=== PATIENT | female | born 1970 | race Two or more races ===

== ENCOUNTER 2020-05-29 10:04 | Outpatient (REF) | payer MEDICAID, SELFPAY ==
[2020-05-29 11:27] LABS: Free T4 (Free Thyroxine) 1.22 ng/dL (0.71-1.85); Thyroid Stimulating Hormone 1.35 mIU/mL (0.32-4.0)
[2020-06-03 06:42] LABS: Thyroglobulin Antibody <1 IU/mL (<=1); Thyroglobulin Level <0.1 ng/mL
== END 2020-05-29 10:05 | disposition home or self-care (01) ==
LOC: HO.LAB 10:04
PROVIDERS: PCP Internal Medicine Geriatric Medicine; Visit Provider Internal Medicine Endocrinology, Diabetes & Metabolism
DX: C73 Malignant neoplasm of thyroid gland (principal)
CPT/HCPCS: 36415; 84432; 84439; 84443; 86800

== ENCOUNTER → 2020-06-03 08:50 | Outpatient (BNVA) | payer MEDICAID, SELFPAY | PROVIDERS: PCP Internal Medicine Geriatric Medicine; Referring Provider Internal Medicine Geriatric Medicine; Visit Provider Internal Medicine Endocrinology, Diabetes & Metabolism | DX: C73 Malignant neoplasm of thyroid gland (principal); E89.0 Postprocedural hypothyroidism; Z79.899 Other long term (current) drug therapy | CPT/HCPCS: 99212 ==

== ENCOUNTER 2020-06-05 08:17 | Outpatient (REF) | payer MEDICAID, SELFPAY | END 2020-06-05 08:18 | disposition home or self-care (01) | LOC: HO.LAB 08:17 | PROVIDERS: Visit Provider Internal Medicine | DX: Z20.828 Contact with and (suspected) exposure to other viral communicable diseases (principal) | CPT/HCPCS: C9803; U0003 ==

== ENCOUNTER 2020-07-09 09:49 | Outpatient (REF) | payer MEDICAID, SELFPAY | END 2020-07-09 09:50 | disposition home or self-care (01) | LOC: HO.LAB 09:49 | PROVIDERS: Visit Provider Internal Medicine | DX: Z20.828 Contact with and (suspected) exposure to other viral communicable diseases (principal) | CPT/HCPCS: C9803; U0003 ==

== ENCOUNTER 2020-11-28 11:11 | Outpatient (REF) | payer MEDICAID, SELFPAY ==
[2020-11-28 13:23] LABS: Free T4 (Free Thyroxine) 1.02 ng/dL (0.71-1.85); Thyroid Stimulating Hormone 0.43 uIU/mL (0.32-4.0)
[2020-12-01 03:57] LABS: Thyroglobulin Antibody <1 IU/mL (<=1); Thyroglobulin Level <0.1 ng/mL
== END 2020-11-28 11:12 | disposition home or self-care (01) ==
LOC: HO.10HDL 11:11
PROVIDERS: Visit Provider Internal Medicine Endocrinology, Diabetes & Metabolism
DX: C73 Malignant neoplasm of thyroid gland (principal)
CPT/HCPCS: 36415; 84432; 84439; 84443; 86800

== ENCOUNTER → 2020-12-02 12:03 | Outpatient (BNVA) | payer MEDICAID, SELFPAY | PROVIDERS: PCP Internal Medicine Geriatric Medicine; Visit Provider Internal Medicine Endocrinology, Diabetes & Metabolism | DX: C73 Malignant neoplasm of thyroid gland (principal); E89.0 Postprocedural hypothyroidism; Z79.899 Other long term (current) drug therapy | CPT/HCPCS: 99212 ==

== ENCOUNTER 2021-01-27 12:10 | Outpatient (REF) | payer MEDICAID, SELFPAY ==
--- NOTE | ~2021-01-27 | XR_ITS ---
EXAMINATION: XR RIBS, RIGHT CLINICAL INFORMATION: Chest pain COMPARISON: None TECHNIQUE: 4 views of the right ribs were obtained. FINDINGS: No focal consolidation. No pneumothorax. Trachea is midline. Cardiomediastinal silhouette is not enlarged. No large pleural effusions. Surgical clips are in the right upper quadrant of the abdomen. Osseous structures are intact. No acute visualized right-sided rib fractures. XR/XR ribs RT min 3V w CXR1V IMPRESSION: 1. No acute cardiopulmonary process. 2. No acute visualized right-sided rib fractures.
== END 2021-01-27 12:11 | disposition home or self-care (01) ==
LOC: HO.XRAY 12:10
PROVIDERS: PCP Internal Medicine Geriatric Medicine; Visit Provider Internal Medicine Geriatric Medicine
DX: R07.89 Other chest pain (principal)
CPT/HCPCS: 71101

== ENCOUNTER 2021-02-14 12:26 | Outpatient (REF) | payer MEDICAID, SELFPAY ==
--- NOTE | ~2021-02-14 | XR_ITS ---
EXAMINATION: LEFT FIRST X-RAY CLINICAL INFORMATION: Left wrist fusion. Pain. COMPARISON: None TECHNIQUE: 4 views of the left wrist FINDINGS: There is a soft tissue ossification seen on the lateral view adjacent to the dorsal wrist questionable for a triquetral fracture. No other fracture is seen. Joint spaces are normal. There is dorsal soft tissue swelling. XR/XR hand wrist LT IMPRESSION: Question triquetral fracture seen on the lateral view. Clinical correlation recommended.
== END 2021-02-14 12:27 | disposition home or self-care (01) ==
LOC: HO.XRAY 12:26
PROVIDERS: PCP Internal Medicine Geriatric Medicine; Referring Provider Internal Medicine Geriatric Medicine; Visit Provider Nurse Practitioner Family
DX: M25.432 Effusion, left wrist (principal); M25.532 Pain in left wrist
CPT/HCPCS: 73110; 73130

== ENCOUNTER 2021-02-14 15:37 | Emergency (ER) | payer MEDICAID, SELFPAY ==
[2021-02-14 15:41] VITALS: BP 149/74; PULSE 75; RESP 20; TEMP 37.3; O2SAT 99; BMI 33.3
--- NOTE | 2021-02-14 16:36 | ED_ITS ---
HPI - Extremity Problem General Chief complaint: Extremity Injury, Upper Stated complaint: left arm pain Time Seen by Provider: 02/14/21 16:05 Source: patient Mode of arrival: ambulatory Limitations: no limitations History of Present Illness HPI Narrative: Patient is a 50-year-old female with no significant past medical history who presents 1 day after injuring her wrist in the pole. Patient states she injured her left wrist while she was playing tag with her nephews in the pool. She believes she bent it forward and against an object but she is not quite sure exactly the mechanism of action. She now has pain to the dorsal aspect of her distal ulna. She states she can feel all of her fingers and move her fingers fine but has difficulty moving her wrist. Related Data Home Medications Medication Instructions Recorded Confirmed cyclobenzaprine 10 mg tablet 10 mg PO BEDTIME 12/02/20 Previous Rx's Medication Instructions Recorded Levoxyl 100 mcg tablet 100 mcg PO DAILY 30 Days #30 tab NS 12/02/20 Allergies Allergy/AdvReac Type Severity Reaction Status Date / Time No Known Allergies Allergy Verified 02/14/21 15:41 [No Known Allergies*] Review of Systems Review of Systems: Yes all other systems are reviewed and are negative [facility] Past Medical History Medical History Post-surgical hypothyroidism Primary thyroid cancer Surgical History Hx of cholecystectomy Hx of hysterectomy Hx of total thyroidectomy Family History Family History Father Alcoholic Mother Hypertension CVD (cardiovascular disease) Diabetes Social History Social History Advance Directives: No Advance Directives Information Provided: Yes Patient : No Physical Exam Vital Signs: Vital Signs: Last Vital Signs Temp 99.1 F 02/14/21 15:41 Pulse 75 02/14/21 15:41 Resp 20 02/14/21 15:41 BP 149/74 H 02/14/21 15:41 Pulse Ox 99 02/14/21 15:41 Body Mass Index 33.3 Const: General: cooperative, healthy appearing, comfortable, no acute distress and well developed Orientation/consciousness: patient oriented x3 Limitations: no limitations Neuro: General: patient oriented x3 Extrem: Left upper extremity: wrist (NVI intact fingers, full ROM fingers, 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 Patient already has an appointment at [facility] in 3 days. Procedures Orthopedic Splinting/Casting Injury #1: Side: left Upper Extremity Injury Location: wrist Upper Extremity Immobilizer: volar splint MDM - Extremity (Nontraumatic) Imaging Data left wrist x-ray: Attestation: I personally reviewed and interpreted this imaging study as follows: Radiologist's impression: [address] [address] ReportSigned Patient: Josué Holloway#: [id number]: 1970Acct:[id number]/Sex: 50 / FADM Date: 02/14/21Loc: HO.XRAYAttending Dr: Efren Hawkins NP Ordering Physician: Efren Hawkins NP Date of Service: 02/14/21 Procedure(s): XR hand wrist LT Accession Number(s): [id number] cc: Efren Hawkins NP~ EXAMINATION: LEFT FIRST X-RAY CLINICAL INFORMATION: Left wrist fusion. Pain. COMPARISON: None TECHNIQUE: 4 views of the left wrist FINDINGS: There is a soft tissue ossification seen on the lateral view adjacent to the dorsal wrist questionable for a triquetral fracture. No other fracture is seen. Joint spaces are normal. There is dorsal soft tissue swelling. XR/XR hand wrist LT IMPRESSION: Question triquetral fracture seen on the lateral view. Clinical correlation recommended. Dictated By:SAMANTHA DRAPER MDSigned By:<Electronically signed by SAMANTHA DRAPER MD in OV>02/14/21 1327 DD/ 1232TD/TT: Manager Multicultural: RIKKI Discharge Plan Discharge Prescriptions: No Action levothyroxine [Levoxyl] 100 mcg tablet 100 mcg PO DAILY 30 Days Qty: 30 RF: 11
== END 2021-02-14 16:51 | disposition home or self-care (01) ==
PROVIDERS: Emergency Provider Emergency Medicine; PCP Internal Medicine Geriatric Medicine
DX: S62.112A Displaced fracture of triquetrum [cuneiform] bone, left wrist, initial encounter for closed fracture (principal); X58.XXXA Exposure to other specified factors, initial encounter; Y93.89 Activity, other specified; Y92.34 Swimming pool (public) as the place of occurrence of the external cause; Y99.9 Unspecified external cause status
CPT/HCPCS: 29125; 99283

== ENCOUNTER 2021-05-23 11:20 | Outpatient (REF) | payer MEDICAID, SELFPAY ==
--- NOTE | ~2021-05-23 | US_ITS ---
EXAMINATION: US VENOUS ULTRASOUND WITH DOPPLER LOWER EXTREMITY, LEFT CLINICAL INFORMATION: Left leg pain. Patient states left lateral pink lump present. COMPARISON: October 04, 2017 TECHNIQUE: Ultrasound of the deep veins is performed from the hip to the calf with compression sonography and color and pulse Doppler assessment. Spectral analysis with color-flow imaging is performed. FINDINGS: There is normal venous compression and respiratory variation and augmented flow. The visualized common femoral vein, superficial femoral vein, profunda femoral vein, popliteal vein, and the trifurcation region shows no evidence of deep venous thrombosis. There is no significant popliteal fossa cyst. No popliteal artery aneurysm. Ultrasound scanning over the questioned lump did not demonstrate any abnormal cystic or solid lesion. No region of abnormal distal sound shadowing appreciated. No edematous change within the soft tissues is seen. US/US venous duplex LE IMPRESSION: No acute DVT demonstrated in the left lower extremity.
--- NOTE | ~2021-05-23 | XR_ITS ---
EXAMINATION: XR TIBIA AND FIBULA, LEFT CLINICAL INFORMATION: Pain COMPARISON: None TECHNIQUE: AP and lateral views of the left tibia and fibula were obtained. FINDINGS: The bones and soft tissues are normal. No fracture. No osseous lesions. XR/XR tibia fibula LT 2V IMPRESSION: Normal left tibia and fibula.
== END 2021-05-23 11:21 | disposition home or self-care (01) ==
LOC: HO.US 11:20
PROVIDERS: PCP Internal Medicine Geriatric Medicine; Visit Provider Emergency Medicine
DX: M79.605 Pain in left leg (principal)
CPT/HCPCS: 73590; 93971

== ENCOUNTER → 2021-10-03 13:50 | Outpatient (BNVA) | payer MEDICAID, SELFPAY | PROVIDERS: PCP Internal Medicine Geriatric Medicine; Visit Provider Internal Medicine Endocrinology, Diabetes & Metabolism | DX: C73 Malignant neoplasm of thyroid gland (principal) | CPT/HCPCS: 99212 ==

== ENCOUNTER 2021-11-12 11:48 | Outpatient (REF) | payer MEDICAID, SELFPAY ==
[2021-11-12 13:41] LABS: Free T4 (Free Thyroxine) 1.22 ng/dL (0.71-1.85); Thyroid Stimulating Hormone 0.48 uIU/mL (0.32-4.0)
[2021-11-20 04:47] LABS: Thyroglobulin Antibody <1 IU/mL (<=1); Thyroglobulin Level <0.1 ng/mL
== END 2021-11-12 11:49 | disposition home or self-care (01) ==
LOC: HO.10HDL 11:48
PROVIDERS: Internal Medicine Endocrinology, Diabetes & Metabolism; Visit Provider Internal Medicine Endocrinology, Diabetes & Metabolism
DX: C73 Malignant neoplasm of thyroid gland (principal); E89.0 Postprocedural hypothyroidism
CPT/HCPCS: 36415; 84432; 84439; 84443; 86800

== ENCOUNTER 2021-11-19 13:45 | Outpatient (REF) | payer MEDICAID, SELFPAY ==
--- NOTE | ~2021-11-19 | MM_ITS ---
EXAMINATION: MM SCREENING DIGITAL BREAST TOMOSYNTHESIS, BILATERAL CLINICAL INFORMATION: Screening. Asymptomatic. The lifetime risk of breast cancer based on the Tyrer-Cuzick Model is 7%. COMPARISON: Mammography: 09/26/2018, 11/11/2016, 09/27/2015 TECHNIQUE: Digital breast tomosynthesis is performed in both the craniocaudal and mediolateral oblique views along with computer-aided detection (CAD). Synthesized 2D images are generated from the tomosynthesis. FINDINGS: There are scattered areas of fibroglandular density (ACR BI-RADS breast composition Category b). There are no significant masses, abnormal calcifications, or other abnormalities. Parenchymal pattern is similar to prior studies. There is no developing density or architectural abnormality. The axilla and skin contours are unremarkable. No significant changes. MM/MM tomosynthesis screening BI IMPRESSION: No mammographic evidence of malignancy. ASSESSMENT: BI-RADS 1: Negative RECOMMENDATION: Routine annual mammography screening. This patient's information was entered into a reminder system with a target due date for their next mammogram.
== END 2021-11-19 13:46 | disposition home or self-care (01) ==
LOC: HO.MAMMO 13:45
PROVIDERS: Visit Provider Internal Medicine Geriatric Medicine
DX: Z12.31 Encounter for screening mammogram for malignant neoplasm of breast (principal)
CPT/HCPCS: 77063; 77067

== ENCOUNTER 2022-01-29 11:05 | Outpatient (REF) | payer MEDICAID, SELFPAY ==
--- NOTE | ~2022-01-29 | XR_ITS ---
EXAMINATION: XR THORACIC SPINE CLINICAL INFORMATION: Pain COMPARISON: None TECHNIQUE: 3 views of the thoracic spine were obtained. FINDINGS: There is no fracture or bone destruction seen and the vertebral alignment is normal. There is no disc space narrowing. There is no abnormality of the paraspinal soft tissues. XR/XR thoracic spine 3V IMPRESSION: Unremarkable thoracic examination.
== END 2022-01-29 11:06 | disposition home or self-care (01) ==
LOC: HO.XRAY 11:05
PROVIDERS: Absent Provider Internal Medicine Geriatric Medicine; PCP Internal Medicine Geriatric Medicine; Visit Provider Registered Nurse
DX: M54.6 Pain in thoracic spine (principal)
CPT/HCPCS: 72072

== ENCOUNTER 2022-03-25 07:57 | Outpatient (REF) | payer MEDICAID, SELFPAY ==
--- NOTE | ~2022-03-25 | US_ITS ---
EXAMINATION: US ABDOMEN COMPLETE CLINICAL INFORMATION: Right upper quadrant pain. Elevated LFTs. COMPARISON: Ultrasound abdomen complete 09/15/2018 and 08/30/2015. TECHNIQUE: Real-time imaging of the abdominal viscera. Technically limited study secondary to body habitus. FINDINGS: PANCREAS: Normal. ABDOMINAL AORTA: The proximal, mid, and distal segments are normal in caliber. INFERIOR VENA CAVA: Visualized portions are normal. LIVER: The liver is normal in size. The liver contour is normal. Liver echotexture is slightly increased. There is a cyst in the right lobe measuring 3.4 x 2.4 x 2.7 cm with septation. This measured 3.2 x 2.1 x 1.9 cm 2018 and 3.1 x 1.9 x 2.2 cm 2015. No other focal liver lesion. There is no intrahepatic biliary duct dilatation seen. GALLBLADDER: Surgically absent. COMMON BILE DUCT: Normal in caliber measuring 0.6 cm in diameter. RIGHT KIDNEY: Normal. No hydronephrosis. No renal calculi or focal parenchymal lesions. The kidney measures 10.4 cm in maximum dimension. LEFT KIDNEY: Normal. No hydronephrosis. No renal calculi or focal parenchymal lesions. The kidney measures 11.6 cm in maximum dimension. SPLEEN: Normal. The spleen measures 10.4 cm in maximum dimension. FREE FLUID: None. US/US abdomen complete IMPRESSION: Slightly echogenic liver probably representing fatty infiltration. No appreciable change in liver cyst..
== END 2022-03-25 07:58 | disposition home or self-care (01) ==
LOC: HO.US 07:57
PROVIDERS: Visit Provider Registered Nurse
DX: R10.11 Right upper quadrant pain (principal)
CPT/HCPCS: 76700

== ENCOUNTER 2022-10-01 09:50 | Outpatient (REF) | payer MEDICAID, SELFPAY ==
[2022-10-01 11:38] LABS: Free T4 (Free Thyroxine) 0.99 ng/dL (0.71-1.85); Thyroid Stimulating Hormone 1.75 uIU/mL (0.32-4.0)
[2022-10-02 18:09] LABS: Thyroglobulin <0.1 ng/mL
== END 2022-10-01 09:51 | disposition home or self-care (01) ==
LOC: HO.10HDL 09:50
PROVIDERS: Visit Provider Internal Medicine Endocrinology, Diabetes & Metabolism
DX: C73 Malignant neoplasm of thyroid gland (principal)
CPT/HCPCS: 36415; 84432; 84439; 84443

== ENCOUNTER → 2022-10-06 07:38 | Outpatient (BNVA) | payer MEDICAID, SELFPAY | PROVIDERS: PCP Internal Medicine Geriatric Medicine; Visit Provider Internal Medicine Endocrinology, Diabetes & Metabolism | DX: C73 Malignant neoplasm of thyroid gland (principal); E89.0 Postprocedural hypothyroidism; Z79.899 Other long term (current) drug therapy | CPT/HCPCS: 99212 ==

== ENCOUNTER 2022-10-21 14:57 | Outpatient (REF) | payer MEDICAID, SELFPAY ==
--- NOTE | ~2022-10-21 | US_ITS ---
EXAMINATION: US SOFT TISSUE HEAD/NECK CLINICAL INFORMATION: Nontoxic multinodular goiter. History of thyroid cancer. Rule out recurrence or persistence. COMPARISON: Ultrasound soft tissue neck 12/19/2019. TECHNIQUE: Linear transducer grayscale and color Doppler examination of the thyroid bed and surrounding soft tissue. FINDINGS: Imaging through the thyroid bed reveals no recurrent mass or nodule. There are scattered neck lymph nodes: Right Neck: - Level 5A lymph node measures 1.0 x 0 0.5 to 0.5 cm. It has normal architecture. Previously it measured 1.2 x 0.6 x 1.1). - Level 2 lymph node measures 1.4 x 0.4 x 0.5 cm. There is normal architecture. It is new. - Level 4 lymph node measures 1.7 x 1.6 x 1.8 cm and has normal architecture. It is new. - Level 5A lymph node measures 1.1 x 0.6 0.7 cm. It has normal echotexture. It is new. - Level 5B lymph node measures 1.3 x 0.4 x 0.7 cm. It has normal architecture. It is new. Left Neck: - Level 2 lymph node previously measured 1.0 x 0.4 x 0.8 cm. It is not seen at this time. - Level 5A lymph node previously it measured 1.1 x 0.6 x 1.0 cm. It is not seen currently. US/US soft tiss head and/or neck IMPRESSION: Normal-appearing bilateral neck lymph nodes. A few new lymph nodes seen in the right neck, benign. No abnormal mass or residual thyroid tissue seen in the thyroid bed.
== END 2022-10-21 14:58 | disposition home or self-care (01) ==
LOC: HO.US 14:57
PROVIDERS: Visit Provider Internal Medicine Endocrinology, Diabetes & Metabolism
DX: E04.2 Nontoxic multinodular goiter (principal); C73 Malignant neoplasm of thyroid gland
CPT/HCPCS: 76536

== ENCOUNTER 2023-03-04 07:51 | Outpatient (REF) | payer MEDICAID, SELFPAY ==
--- NOTE | ~2023-03-04 | US_ITS ---
EXAMINATION: US ABDOMEN COMPLETE CLINICAL INFORMATION: Fatty liver. COMPARISON: Ultrasound abdomen complete 03/25/2022 and 09/15/2018. TECHNIQUE: Real-time imaging of the abdominal viscera. FINDINGS: Limited by patient body habitus. PANCREAS: Head and body appear unremarkable. Tail not visualized. ABDOMINAL AORTA: The proximal, mid, and distal segments are normal in caliber. INFERIOR VENA CAVA: Visualized portions are normal. LIVER: No images containing both the liver and right kidney are submitted. Liver echogenicity is suboptimally assessed on the current study. No obvious fatty infiltration. The liver is normal in size. The liver contour appears unremarkable. Approximately 3 cm or less benign left hepatic cysts. No intrahepatic biliary ductal dilation identified. GALLBLADDER: Surgically absent. Technologist reports negative sonographic Hughes's sign. COMMON BILE DUCT: Measures 1.0 cm in diameter. RIGHT KIDNEY: No hydronephrosis. No renal calculi or focal parenchymal lesions. The kidney measures 10.1 cm in maximum dimension. LEFT KIDNEY: No hydronephrosis. No renal calculi or focal parenchymal lesions. The kidney measures 10.8 cm in maximum dimension. SPLEEN: The spleen measures 10.6 cm in maximum dimension. FREE FLUID: None. US/US abdomen complete IMPRESSION: Limited study. No obvious fatty infiltration of the liver. Gallbladder not visualized, consistent with reported history of prior surgical removal. Common bile duct upper normal in diameter to mildly dilated for patient of this age who is status post cholecystectomy. No intrahepatic biliary ductal dilation identified.
[2023-03-04 09:53] LABS: Alanine Aminotransferase 47 U/L (0-31); Albumin Level 3.6 g/dL (3.5-5.0); Alkaline Phosphatase 106 U/L (39-117); Anion Gap 15 (12-20); Aspartate Amino Transferase 50 U/L (5-31); Bilirubin Total 0.5 mg/dL (0.0-1.0); Blood Urea Nitrogen 10 mg/dL (9-16); Calcium 9.4 mg/dL (8.4-10.2); Carbon Dioxide 24 mmol/L (22-29); Chloride 109 mmol/L (96-108); Estimated Glomerular Filt Rate > 60; Glucose Random 92 mg/dL (60-115); Sodium 144 mmol/L (135-145); Total Protein 6.9 g/dL (6.5-8.0)
== END 2023-03-04 07:52 | disposition home or self-care (01) ==
LOC: HO.US 07:51
PROVIDERS: PCP Internal Medicine Geriatric Medicine; Visit Provider Internal Medicine Geriatric Medicine
DX: K76.0 Fatty (change of) liver, not elsewhere classified (principal)
CPT/HCPCS: 36415; 76700; 80053

== ENCOUNTER 2023-09-29 09:33 | Outpatient (REF) | payer MEDICAID, SELFPAY ==
[2023-09-29 11:34] LABS: Free T4 (Free Thyroxine) 1.03 ng/dL (0.71-1.85); Thyroid Stimulating Hormone 3.08 uIU/mL (0.32-4.0)
[2023-10-02 02:28] LABS: Thyroglobulin Antibody <1 IU/mL (<=1)
[2023-10-02 05:58] LABS: Thyroglobulin Level <0.1 ng/mL
== END 2023-09-29 09:34 | disposition home or self-care (01) ==
LOC: HO.10HDL 09:33
PROVIDERS: Visit Provider Internal Medicine Endocrinology, Diabetes & Metabolism
DX: C73 Malignant neoplasm of thyroid gland (principal)
CPT/HCPCS: 36415; 84432; 84439; 84443; 86800

== ENCOUNTER 2023-10-05 12:46 | Outpatient (AMB) | payer MEDICAID, SELFPAY ==
--- NOTE | 2023-10-05 12:52 | MHC.OFFVIS ---
Intake Vital Signs 10/05/23 12:53 Height 5 ft 7.91 in Weight 224 lb 13.944 oz BMI 34.3 BP 110/60 Blood Pressure Location Lt brachial Position Sitting Pulse 71 Pulse Source Pulse Oximeter Intake Visit Reasons: Thyroid Cancer-confirmed Intake Note: Patient presents today for Thyroid Cancer follow up. Clinical Systems Educator Required: No Accompanied by: Self / Same As Patient Allergies No Known Allergies [No Known Allergies*] Allergy (Verified 10/05/23 12:59) Medication List - Last Reconciled 10/05/23 by Arpit Modi MD cyclobenzaprine 10 mg PO BEDTIME Levoxyl (levothyroxine) 100 mcg PO DAILY NS HPI HPI Comments History of Present Illness Details 53 year-old female she 1 for PTC and postsurgical hypothyroidism by Dr. Conroy . She is feeling well , does complain weight gain. She is currently on Levoxyl to 100 mcg . She states she is 100 % compliant , she has a good method of administration. Diagnosed with Thyroid cancer stage 1 , (T 1b, N 0, M 0) size 1.5 x 1.3 x 0.8 cm clear margins, no lymphovascular invasion, no extrathyroidal extension. She was treated with surgery (04/25/14) by , BARNHART (104.8 mCi) 07/16/14, post ablation scan 07/24/14 uptake only in neck and submandibular glands. 03/27/16 [facility] at [facility] residual iodine uptake in neck . there was not stimulated TG measured with this scan. Denies palpitations, tremors, denies diarrhea, denies nervousness, denies insomnia, gaining weight, no heat intolerance, sweating, denies anxiety, irritable. She has PMH of paroxysmal supraventricular arrhythmia. US thyroid 12/19/2019 RIGHT NECK SOFT TISSUES: Right neck soft tissues and nodes are as follows: There are scattered small normal nodes demonstrated with normal rosalva architecture and color flow. No lymphadenopathy. Level 1B: 0.3 x 0.5 cm. Normal rosalva architecture. Level 2A: 0.4 x 0.6 cm. Normal rosalva architecture. Level 5A: 0.6 x 1.2 cm. Normal rosalva architecture. Level 6: 0.4 x 0.5 cm. Normal rosalva architecture. LEFT NECK SOFT TISSUES: Left neck soft tissues and nodes are as follows: There are scattered small normal nodes demonstrated with normal rosalva architecture and color flow. No lymphadenopathy. Level 1B: 0.3 x 0.5 cm. Normal rosalva architecture. Level 2A: 0.4 x 1.1 cm. Normal rosalva architecture. Level 5A: 0.6 x 1.1 cm. Normal rosalva architecture Laboratory Tests 11/28/20 11/28/20 11:17 11:17 TSH 0.43 Free T4 1.02 Thyroglobulin <0.1 Thyroglobulin Anti body <1 Laboratory Tests 11/30/19 11/30/19 05/29/20 10:37 10:37 10:25 TSH 1.35 Free T4 1.22 Thyroglobulin Thyroglobulin LC-M S/MS Thyroglobulin Comm ent Has been added TSH 3rd Generation 0.52 Thyroglobulin Anti body 05/29/20 10:25 TSH Free T4 Thyroglobulin <0.1 Thyroglobulin LC-M S/MS TNP Thyroglobulin Comm ent TSH 3rd Generation Thyroglobulin Anti body <1 PFSH Medical History Post-surgical hypothyroidism Primary thyroid cancer Surgical History Hx of cholecystectomy Hx of hysterectomy Hx of total thyroidectomy Family History Father Alcoholic Mother Hypertension CVD (cardiovascular disease) Diabetes Social History Alcohol intake: current Alcohol intake frequency: does not drink Patient Tobacco Use Status: Never used Tobacco Physical Exam Const Other: Healed scar status post thyroidectomy . There is no cervical adenopathy palpated in the neck Assessment & Plan Assessment & Plan (1) Primary thyroid cancer: Code(s): C73 - Malignant neoplasm of thyroid gland Plan This is a 53-year-old female with a history of papillary thyroid cancer status post total thyroidectomy with radioactive iodine therapy in 2013 108 mCi. Recent thyroglobulin and thyroid ultrasounds show the absence of recurrent or persistent thyroid cancer. She has be replaced on Levoxyl 100 mcg. She appears to be clinically and biochemically euthyroid. Neck ultrasound showed no signs of persistence or recurrence of thyroid cancer Plan is to continue the current regimen. At this point, patient seems cure of the thyroid cancer and does not need any follow-up neck ultrasound or thyroglobulin levels. Will have patient returned to the care of her primary care provider who can check TSH and adjust levoxyl and keep TSH in normal range. She returned back to endocrinology as needed Coding Level of Care Code Est Pt Level 3 (47160) Diagnoses Primary thyroid cancer C73
[2023-10-05 12:53] VITALS: BP 110/60; PULSE 71; BMI 34.3
== END 2023-10-05 13:12 | disposition home or self-care (01) ==
PROVIDERS: PCP Internal Medicine Geriatric Medicine; Referring Provider Internal Medicine Geriatric Medicine; Visit Provider Internal Medicine Endocrinology, Diabetes & Metabolism
DX: Z85.850 Personal history of malignant neoplasm of thyroid (principal)
CPT/HCPCS: 99213

== ENCOUNTER → 2023-10-05 12:46 | Outpatient (BNVA) | payer MEDICAID, SELFPAY | PROVIDERS: PCP Internal Medicine Geriatric Medicine; Referring Provider Internal Medicine Geriatric Medicine; Visit Provider Internal Medicine Endocrinology, Diabetes & Metabolism | DX: C73 Malignant neoplasm of thyroid gland (principal) | CPT/HCPCS: 99212 ==

== ENCOUNTER 2024-02-11 08:26 | Outpatient (REF) | payer MEDICAID, SELFPAY ==
[2024-02-11 11:56] LABS: Alanine Aminotransferase 54 U/L (0-31); Albumin Level 3.9 g/dL (3.5-5.0); Alkaline Phosphatase 107 U/L (39-117); Anion Gap 10 (12-20); Aspartate Amino Transferase 53 U/L (5-31); Bilirubin Total 0.4 mg/dL (0.0-1.0); Blood Urea Nitrogen 10 mg/dL (9-16); Calcium 9.3 mg/dL (8.4-10.2); Carbon Dioxide 30 mmol/L (22-29); Chloride 107 mmol/L (96-108); Cholesterol 168 mg/dL (<200); Estimated Glomerular Filt Rate > 60; Glucose Random 96 mg/dL (60-115); HDL Cholesterol 55 mg/dL (>40); LDL Cholesterol Calculated 95 mg/dL (<100); Potassium 4.5 mmol/L (3.3-5.1); Sodium 142 mmol/L (135-145); Total Protein 7.1 g/dL (6.5-8.0); Triglycerides 93 mg/dL (<150)
== END 2024-02-11 08:27 | disposition home or self-care (01) ==
LOC: HO.HHCL 08:26
PROVIDERS: Visit Provider Internal Medicine Geriatric Medicine
DX: K76.0 Fatty (change of) liver, not elsewhere classified (principal); E89.0 Postprocedural hypothyroidism; Z13.220 Encounter for screening for lipoid disorders; Z85.850 Personal history of malignant neoplasm of thyroid
CPT/HCPCS: 36415; 80053; 80061; 84443

== ENCOUNTER 2024-02-18 08:57 | Outpatient (REF) | payer MEDICAID, SELFPAY ==
[2024-02-19 03:51] LABS: HBsAGNum1 0.33 S/CO (0.00-0.99); HIV AB/AG Nonreactive (Nonreactive); HIV Num 1 0.05 S/CO (0.00-0.99); Hepatitis B Surface Antigen Negative (Negative); ~HepC Num1 0.11 S/CO (0.00-0.79); ~Hepatitis B Surface Antibody REACTIVE (Nonreactive); ~Hepatitis C Antibody Nonreactive (Nonreactive)
[2024-02-19 04:06] LABS: Hepatitis A Antibody IgG REACTIVE (Nonreactive); ~Hepatitis A Antibody IgG 3.56 S/CO (0.00-0.99)
== END 2024-02-18 08:58 | disposition home or self-care (01) ==
LOC: HO.HHCL 08:57
PROVIDERS: Visit Provider Internal Medicine Geriatric Medicine
DX: K76.0 Fatty (change of) liver, not elsewhere classified (principal); Z11.4 Encounter for screening for human immunodeficiency virus [HIV]
CPT/HCPCS: 36415; 86706; 86708; 86803; 87340; 87389

== ENCOUNTER 2024-02-24 13:35 | Outpatient (REF) | payer MEDICAID, SELFPAY ==
--- NOTE | ~2024-02-24 | MM_ITS ---
EXAMINATION: MM SCREENING DIGITAL BREAST TOMOSYNTHESIS, BILATERAL CLINICAL INFORMATION: Screening. Asymptomatic. COMPARISON: Mammography: This study is compared with prior exams dating back to 2019. TECHNIQUE: Digital breast tomosynthesis is performed in both the craniocaudal and mediolateral oblique views along with computer-aided detection (CAD). Synthesized 2D images are generated from the tomosynthesis. FINDINGS: There are scattered areas of fibroglandular density (ACR BI-RADS breast composition Category b). There is a subareolar focal asymmetry in the left breast. Additional mammographic and targeted sonographic imaging of this finding is advised. In the right breast, there are no significant masses, abnormal calcifications, or other abnormalities. MM/MM tomosynthesis screening BI IMPRESSION: Left subareolar focal asymmetry warrants additional mammographic and targeted sonographic imaging. No mammographic signs of malignancy right breast. ASSESSMENT: BI-RADS BI-RADS 0 - Incomplete: Needs additional Imaging. RECOMMENDATION: 1. Additional views of the left breast. 2. Targeted ultrasound is warranted after review of the additional views. 3. Radiology department staff will contact the patient for additional imaging. Additional Imaging required This examination should not preclude the clinical evaluation of a suspicious palpable abnormality. This patient's information was entered into a reminder system with a target due date for their next mammogram.
== END 2024-02-24 13:36 | disposition home or self-care (01) ==
LOC: HO.MAMMO 13:35
PROVIDERS: PCP Internal Medicine Geriatric Medicine; Visit Provider Internal Medicine Geriatric Medicine
DX: Z12.31 Encounter for screening mammogram for malignant neoplasm of breast (principal)
CPT/HCPCS: 77063; 77067

== ENCOUNTER → 2024-02-24 14:30 | Outpatient (BNV) | payer MEDICAID, SELFPAY | PROVIDERS: PCP Internal Medicine Geriatric Medicine; Visit Provider Radiology Diagnostic Radiology | DX: Z12.31 Encounter for screening mammogram for malignant neoplasm of breast (principal) | CPT/HCPCS: 77063; 77067 ==

== ENCOUNTER 2024-04-24 14:56 | Outpatient (REF) | payer MEDICAID, SELFPAY | END 2024-04-24 14:57 | disposition home or self-care (01) | LOC: HO.MAMMO 14:56 | PROVIDERS: PCP Internal Medicine Geriatric Medicine; Visit Provider Internal Medicine Geriatric Medicine | DX: Z13.89 Encounter for screening for other disorder (principal) ==

== ENCOUNTER 2024-05-09 09:46 | Outpatient (REF) | payer MEDICAID, SELFPAY ==
--- NOTE | ~2024-05-09 | XR_ITS ---
EXAMINATION: XR CHEST CLINICAL INFORMATION: Posterior chest pain COMPARISON: 01/07/2021 TECHNIQUE: 2 views of the chest were obtained. FINDINGS: No focal consolidation, pulmonary edema, or pleural effusion. Stable cardiomediastinal silhouette. XR/XR chest 2V IMPRESSION: No acute cardiopulmonary findings. Electronically signed by: Rodriguez Figueroa MD 05/09/2024 11:35 AM EDT
== END 2024-05-09 09:47 | disposition home or self-care (01) ==
LOC: HO.HHCX 09:46
PROVIDERS: Visit Provider Emergency Medicine
DX: R07.89 Other chest pain (principal)
CPT/HCPCS: 71046

== ENCOUNTER 2024-08-29 11:57 | Outpatient (REF) | payer MEDICAID, SELFPAY ==
--- OUTSIDE RECORDS SUMMARY | 2024-08-29 13:02 | XMS_ITS | Encounter Summary ---
Author Organization [employer] Address [address] [place] [address] Care Team Providers Care Finished Cloth Examiner Name Role Phone Name, Parag SHAH Primary Care Provider [phone] Reason for Visit * Reason Comments Follow-up Encounter Details Date Type Department Care Team ([facility] st Contact Info) Description 08/23/2024 9:15 AM EST Telemedicine [facility] [address] [place] [id number] Name, MD Parag [address] [place] [address] Arthralgia, unspecified joint (Primary Dx); Healthcare maintenance Social History Tobacco Use Types Packs/Day Years Used Date Smoking Tobacco: Never Smokeless Tobacco: Never Alcohol Use Standard Drinks/Week Comments Never 0 (1 standard drink = 0.6 oz pur e alcohol) Depression Answer Date Recorded Patient Health Questionnaire-9 Score 0 02/17/2024 Patient Health Questionnaire-9 Score 0 02/17/2024 Last PHQ-9: Questionnaire Data Not on file 0 02/17/2024 Housing Stability Answer Date Recorded What is your housing situation today? I have erin kumari 02/17/[address] you li ve. Do you have problems with any of the following? None of the above 02/17/2024 Food Insecurity Answer Date Recorded Within the past 12 months, y ou worried that your food would run out before you got money to buy more: Never True 02/17/2024 Within the past 12 months,th e food you bought just didn't last and you didn't have enough money to get more: Never True Transportation Answer Date Recorded In the past 12 months, has l ack of transportation kept you from medical appts, meetings, work or from getting things needed for daily living? No 02/17/2024 Utilities Answer Date Recorded In the past 12 months, has t he electric, gas, oil or water company threatened to shut off services in your home? No 02/17/2024 Depression Answer Date Recorded Patient Health Questionnaire-2 Score 0 02/17/2024 Internet Access Answer Date Recorded Internet Access Q1 No 03/31/2024 Internet Access Q2 I do not want or need it 03/04 Comments Unknown Sex and Gender Information Value Date Recorded Sex Assigned at Female 06/01/2022 10:14 AM EDT Legal Sex Female 10:14 AM EDT Gender Identity Female 06/01/2022 10:14 AM EDT Sexual Orientation Straight 06/01/2022 10 :14 AM EDT documented as of this encounter Progress Notes * Parag Maria MD - 08/23/2024 9:15 AM EST Subjective Patient ID: Annmarie Holloway is a 53 y.o. female who presents for Follow-up. I called the patient to discuss results of recent mammogram. Initial reading showed a possible abnormality. Subsequent review of the mammogram showed that the findings initially interpreted as abnormal are actually stable for many years. Reading of the mammogram was changed to BI-RADS 2. The patient is asymptomatic. She should repeat her mammogram in January of this year. The patient has other complaints. She complains of generalized aches and pains. She describes muscle discomfort all over and joint pains. She does not think she has any joint swelling. She was attributing her symptoms to the use of levothyroxine but I explained that I do not think this is the case. Review of Systems Constitutional: Negative for chills and fever. HENT: Negative for sore throat. Respiratory: Negative for cough, shortness of breath and wheezing. Cardiovascular: Negative for chest pain, palpitations and leg swelling. Gastrointestinal: Negative for abdominal pain. Musculoskeletal: Positive for arthralgias. Objective Physical Exam Vitals reviewed: [facility] audio [facility] [address] [place], [place] [address] Mammography Report Signed with Pineda Patient: Annmarie Holloway MR#: [id number] 56 : 1970 Acct:[id number] Age/Sex: 53 / F ADM Date: 02/24/24 Loc: HO.MAMMO Attending Dr: Parag Maria MD Ordering Physician: Parag Maria MD Results: 2Benign Nidhi ndings Date of Service: 02/24/24 Follow Up: 1 Year From Orig ina Mammogram Procedure(s): MM tomosynthesis screening BI Accession Number(s): [id number] cc: Name,Parag SHAH ADDENDUM ADDENDUM: Upon further review, the subareolar focal asymmetry in the left breast has been unchanged over numerous prior mammograms, dating back to 2015, and is an ectatic duct, a benign finding. No further follow-up imaging recommended at this time. Recommend the patient return to routine annual screening in one year. OVERALL ASSESSMENT: BI-RADS 2 - Benign Findings RECOMMENDATION: 1 year F/U Electronically signed by: Alex Brush MD 06/27/2024 02:[address] [facility] Addendum Dictated By: Alex Brush MD Addendum Signed By: <Electronically signed by Alex Brush MD in OV> 06/27/24 1444 Addendum Cosigned By: DD/ TD/TT: 02/24/24 EXAMINATION: MM SCREENING DIGITAL BREAST TOMOSYNTHESIS, BILATERAL CLINICAL INFORMATION: Screening. Asymptomatic. COMPARISON: Mammography: This study is compared with prior exams dating back to 2019. TECHNIQUE: Digital breast tomosynthesis is performed in both the craniocaudal and mediolateral oblique views along with computer-aided detection (CAD). Synthesized 2D images are generated from the tomosynthesis. FINDINGS: There are scattered areas of fibroglandular density (ACR BI-RADS breast composition Category b). There is a subareolar focal asymmetry in the left breast. Additional mammographic and targeted sonographic imaging of this finding is advised. In the right breast, there are no significant masses, abnormal calcifications, or other abnormalities. MM/MM tomosynthesis screening BI IMPRESSION: Left subareolar focal asymmetry warrants additional mammographic and targeted sonographic imaging. No mammographic signs of malignancy right breast. ASSESSMENT: BI-RADS BI-RADS 0 - Incomplete: Needs additional Imaging. RECOMMENDATION: 1. Additional views of the left breast. 2. Targeted ultrasound is warranted after review of the additional views. 3. Radiology department staff will contact the patient for additional imaging. Additional Imaging required This examination should not preclude the clinical evaluation of a suspicious palpable abnormality. This patient's information was entered into a reminder system with a target due date for their next mammogram. Dictated By: Indira Adams MD Signed By: <Electronically signed by Indira Adams MD in [place]> 03/15/242019 Assessment/Plan Diagnoses and all orders for this visit: Arthralgia, unspecified joint Comments: I will message my MA to give her appointment in person for evaluation Healthcare maintenance Comments: Most recent mammogram was BI-RADS 2. Recommended repeat mammogram in January of this year. documented in this encounter Plan of Treatment Not on file documented as of this encounter Visit Diagnoses Diagnosis Arthralgia, unspecified joint- Primary Healthcare maintenance documented in this encounter Additional Health Concerns Assessment Noted Time PHQ-9 Depression Total Score: 0 02/17/20 24 11:11 AM EDT documented as of this encounter Care Teams Finished Cloth Examiner Relationship Specialty Start Date End Date Name, MD Parag [address] [place] [address] PCP - General Family Medicine 12/24/15 documented as of this encounter
--- OUTSIDE RECORDS SUMMARY | 2024-08-29 13:02 | XMS_ITS | Encounter Summary ---
Author Organization [employer] Address [address] [place] [address] Care Team Providers Care Cement Kiln Operator Name Role Phone Name, Parag SHAH Primary Care Provider [phone] Reason for Visit * Reason Onset Date Comments chart prep 08/28/2024 Encounter Details Date Type Department Care Team ([facility] Contact Info) Description 08/28/2024 Telephone [facility] [address] [facility] [place] [address] Laxmi Cadet MA chart prep Social History Tobacco Use Types Packs/Day Years [...] AM EDT documented as of this encounter Miscellaneous Notes * Telephone Encounter - Laxmi Cadet MA - 08/28/2024 9:53 AM EST Chart Prep Labs: not done Images: not done Vaccines due: yes Referrals: complete Screenings: colonoscopy Overdue care gaps: none documented in this encounter Plan of Treatment Not on file documented as of this encounter Visit Diagnoses Not on filedocumented in this encounter Additional Health Concerns Assessment Noted Time PHQ-9 Depression Total Score: 0 02/17/20 24 11:11 AM EDT documented as of this encounter Care Teams Cement Kiln Operator Relationship Specialty Start Date End Date Name, MD Parag [address] [place] [address] PCP - General Family Medicine 12/24/15 documented as of this encounter
--- OUTSIDE RECORDS SUMMARY | 2024-08-29 13:02 | XMS_ITS | Encounter Summary ---
Author Organization [employer] Address [address] [place] [address] Care Team Providers Care Reservation Clerk Name Role Phone Name, Parag SHAH Primary Care Provider [phone] Reason for Visit * Reason Onset Date Comments Medication Question 02/28/2024 Patient walk ed in stating her pharmacy wants to changed her medication Levoxyl 100mg for Generic version. Patient stated she doesn't want the generic version she wants the original medication. Patient stated the generic is causing her pain and not going away. Encounter Details Date Type Department Care Team (Late st Contact Info) Description 02/28/2024 Refill [facility] [address] [place], [place] [phone] Name, MD Parag [address] [place], [place] [phone] Social History Tobacco Use Types Packs/Day Years [...] Recorded Patient Health Questionnaire-2 Score 0 02/17/2024 Comments Unknown Sex and Gender Information Value Date Recorded Sex Assigned at Female 06/01/2022 10:14 AM EDT Legal Sex Female 10:14 AM EDT Gender Identity Female 06/01/2022 10:14 AM EDT Sexual Orientation Straight 06/01/2022 10 :14 AM EDT documented as of this encounter Miscellaneous Notes * Telephone Encounter - Faith Juarez - 03/01/2024 11:47 AM EDT PA for Levoxyl generated and placed on PCP desk for signature. * Telephone Encounter - Emmanuelle Teresa RN - 02/28/2024 11:14 AM EDT Please review and start PA for below medication Levoxyl. * Telephone Encounter - Emmanuelle Teresa RN - 02/28/2024 11:01 AM EDT T/C to [facility] for Levoxyl rx. Pharmacy states Levoxyl needs PA. Please review and advise if message needs to be send to PA team. * Telephone Encounter - Ratna Waller - 02/28/2024 9:41 AM EDT Patient walked in stating her pharmacy wants to changed her medication Levoxyl 100mg for Generic version. Patient stated she doesn't want the generic version she wants the original medication. Patient stated the generic is causing her pain and not going away. documented in this encounter Plan of Treatment Not on file documented as of this encounter Visit Diagnoses Not on filedocumented in this encounter Additional Health Concerns Assessment Noted Time PHQ-9 Depression Total Score: 0 02/17/20 11:11 AM EDT documented as of this encounter Care Teams Reservation Clerk Relationship Specialty Start Date End Date Name, MD Parag [address] [place] [address] PCP - General Family Medicine 12/24/15 documented as of this encounter
--- OUTSIDE RECORDS SUMMARY | 2024-08-29 13:02 | XMS_ITS | Encounter Summary ---
Author Organization [employer] Address [address] [place] [address] Care Team Providers Care Concession Manager Name Role Phone Name, Parag SHAH Primary Care Provider [phone] Reason for Visit * Reason Comments Med Change Request Encounter Details Date Type Department Care Team ([facility] st Contact Info) Description 03/01/2024 Refill [facility] [address] [place], [place] [phone] Name, MD Parag [address] [place] [address] Social History Tobacco Use Types Packs/Day Years [...] AM EDT documented as of this encounter Plan of Treatment Not on file documented as of this encounter Visit Diagnoses Not on filedocumented in this encounter Additional Health Concerns Assessment Noted Time PHQ-9 Depression Total Score: 0 02/17/20 24 11:11 AM EDT documented as of this encounter Care Teams Concession Manager Relationship Specialty Start Date End Date Name, MD Parag [address] [place] [id number] PCP - General Family Medicine 12/24/15 documented as of this encounter
--- OUTSIDE RECORDS SUMMARY | 2024-08-29 13:02 | XMS_ITS | Clinical Summary ---
Author Organization [employer] Address [address] [facility] [address] [place] [address] Care Team Providers Care Operating Systems Specialist Name Role Phone Name, Parag SHAH Primary Care Provider [phone] Allergies No known active allergies Medications Levoxyl 100 MCG tablet Take 1 tablet (100 mcg) by mouth before breakfast. 90 tablet 3 03/01/2024 03/01/20 25 Active cyclobenzaprine (Flexeril) 10 MG tabletIndication s:Chronic low back pain without sciatica, unspecified back pain laterality TAKE 1 TABLET BY MOUTH THREE TIMES A DAY 90 tablet 06/01/2024 Active celecoxib (CeleBREX) 200 MG capsule Take 1 capsule (200 mg) by mouth 2 times daily for 20 days. 40 capsule 08/29/2024 09/18/19 25 Active Active Problems Problem Noted Date Diagnosed Date Hx of papillary thyroid carcinoma 11/04/2023 Overview (11/04/2023): Diagnosed with Thyroid cancer stage 1 , (T 1b, N 0, M 0) size 1.5 x 1.3 x 0.8 cm clear margins, no lymphovascular invasion, no extrathyroidal extension. She was treated with surgery (04/25/14) by , BARNHART (104.8 mCi) 07/16/14, post ablation scan 07/24/14 uptake only in neck and submandibular glands. 03/27/16 WBS at [facility] residual iodine uptake in neck . there was not stimulated TG measured with this scan. US thyroid 12/19/2019 RIGHT NECK SOFT TISSUES: Right neck soft tissues and nodes are as follows: There are scattered small normal nodes demonstrated with normal rosalva architecture and color flow. No lymphadenopathy. Level 1B: 0.3 x 0.5 cm. Normal rosalva architecture. Level 2A: 0.4 x 0.6 cm. Normal rosalva architecture. Level 5A: 0.6 x 1.2 cm. Normal rosalva architecture. Level 6: 0.4 x 0.5 cm. Normal rosalva architecture. LEFT NECK SOFT TISSUES: Left neck soft tissues and nodes are as follows: There are scattered small normal nodes demonstrated with normal rosalva architecture and color flow. No lymphadenopathy. Level 1B: 0.3 x 0.5 cm. Normal rosalva architecture. Level 2A: 0.4 x 1.1 cm. Normal rosalva architecture. Level 5A: 0.6 x 1.1 cm. Normal rosalva architecture Laboratory Tests 11/28/20 11/28/20 11:17 11:17 TSH 0.43 Free T4 1.02 Thyroglobulin <0.1 Thyroglobulin Anti body <1 H/O: hysterectomy 10/14/2022 Vertigo 08/05/2018 Varicose veins of lower extremity 02/19/2017 Steatosis of liver 05/04/2016 Acquired hypothyroidism 01/06/2016 History of cholecystectomy 01/06/2016 Seasonal allergic rhinitis 01/06/2016 Depressive disorder 11/16/2013 Obesity 11/16/2013 Resolved Problems Problem Noted Date Diagnosed Date Resolved Date Pruritus of vagina 10/08/2017 Vaginal discharge 10/08/2017 11/04/2023 Body aches 10/04/2017 11/04/2023 Lump 10/04/2017 11/04/2023 Pain of left lower extremity 10/04/2017 11/04/2023 Edema 02/19/2017 11/04/2023 Elevated levels of transamin ase & lactic acid dehydrogenase 01/06/2016 11/04/2023 Thyroid nodule 03/26/2014 11/04/2023 Chronic hypotension 11/16/2013 11/04/19 24 Pain in the coccyx 11/16/2013 Encounters Date Type Department Care Team Description 08/29/2024 11:15 AM EST Office Visit [facility] [address] [place] [address] Name, MD Parag Arthralgia, unspecified joint (Primary Dx) 08/28/2024 Telephone [facility] [address] [place] [address] Laxmi Cadet MA chart prep 08/23/2024 9:15 AM EST Telemedicine [facility] [place] [address] Parag Maria MD Arthralgia, unspecified joint (Primary Dx); Healthcare maintenance 06/13/2024 Telephone [facility] [place] [address] NameParag MD 06/01/2024 3:15 PM EDT Office Visit [facility] [address] [facility] [address] NameParag MD Abnormal mammogram (Primary Dx); Chronic low back pain without sciatica, unspecified back pain laterality 06/01/2024 Travel 05/29/2024 Travel from Last 3 Months Immunizations Name Administration Dates Next Due Hep A, Adult 10/04/2017 Hep B, adult 05/17/2018,10/04/2017 Influenza injectable quadriv alent IIV4 with preservative 05/17/2018 Influenza injectable quadrivalent preservative f ree 08/04/2016 TD (adult), 2 Lf tetanus tox oid, preservative free, adsorbed 09/19/2021,09/16/2000 Tdap 10/30/2010 Zoster, Recombinant 03/16/2022,01/05/2022 Family History Medical History Relation Name Comments Diabetes Brother HIV Brother Hypertension Brother Alcohol abuse Father Asthma Mother Diabetes Mother Hyperlipidemia Mother Hypertension Mother Diabetes Sister Relation Name Status Comments Brother Father Mother Sister Social History Tobacco Use Types Packs/Day Years Used Date Smoking Tobacco: Never Smokeless Tobacco: Never Tobacco Cessation:Counseling Given: Not Answered Alcohol Use Standard Drinks/Week Comments Never 0 [...] Orientation Straight 06/01/2022 10 :14 AM EDT Last Filed Vital Signs Vital Sign Reading Time Taken Comments Blood Pressure 110/71 08/29/2024 11:14 AM EST Pulse 63 08/29/2024 11:14 AM EST Temperature 35.7 ??C (96.2 ??F) 08/29/2024 11:[address] Respiratory Rate 21 08/29/2024 11:14 AM EST Oxygen Saturation 98% 08/29/2024 11:14 AM EST Inhaled Oxygen Concentration - - Weight 105 kg (230 lb 12.8 oz) 08/29/2024 11:14 AM EST Height 175.3 cm (5' 9 ) 08/29/2024 11:14 AM EST Body Mass Index 34.08 08/29/2024 11:14 AM EST Plan of Treatment Health Maintenance Due Date Last Done Comments CT Colonography 1969 Colonoscopy 1969 Colorectal Cancer Screening 1970 FIT DNA/Cologuard 1969 FIT 1969 FOBT 1970 Sigmoidoscopy 1969 Hepatitis A Vaccines (2 of 2 - Risk 2-dose series) 04/06/2018 10/04/2017 Hepatitis B Vaccines (3 of 3 - 19+ 3-dose series) 07/12/2018 05/17/2018, 10/04/2017 COVID-19 Vaccine ( season) 2024 07/02/2021, 10/29/2020, 10/01/2020 Influenza Vaccine (#1) 2024 05/17/2018, 2016 Alcohol/Substance Use Screening 02/16/2025 02/17/2024 Depression Screening 02/16/2025 02/17/2024, 02/17/20 24 SDOH Screening 02/16/2025 02/17/2024 Tobacco Screening 08/29/2025 08/29/2024 Mammogram 02/23/2026 02/24/2024, /2 , 02/26/2021, Additional history exists Lipid Panel 02/10/2029 02/11/2024, 0309/2021, 01/29/2021, Additional history exists DTaP/Tdap/Td Vaccines (3 - Td or Tdap) 09/19/2031 09/19/2021, 10/30/2010, 09/16/2000 RSV Patients and Patients Aged 60 years or older (1 - 1-dose 75+ series) 2044 Zoster Vaccines Completed 03/16/2022, 01/05/2022 HIV Screening Completed 02/18/2024 Hepatitis C Screening Completed 02/18/2024 HIB Vaccines Aged Out No longer eligi ble based on patient's age to complete this topic HPV Vaccines Aged Out No longer eligi ble based on patient's age to complete this topic IPV Vaccines Aged Out No longer eligi ble based on patient's age to complete this topic Meningococcal Vaccine Aged Out No easton manny eligible based on patient's age to complete this topic Pneumococcal Vaccine: Pediatrics (0 to 5 Years) and At-Risk Patients (6 to 64 Years) Aged Out No longer eligible based on patient's age to complete this topic RSV under 20 months Aged Out No longe r eligible based on patient's age to complete this topic Rotavirus Vaccines Aged Out No longer eligible based on patient's age to complete this topic Procedures Procedure Name Priority Date/Time Associated Diagnosis Comments BI MAMMOGRAM SCREENING TOMOSYNTHESIS BILATERAL Routine 02/24/2024 2:00 PM EDT Encounter for screening mammogram for malignant neoplasm of breast HEPATITIS C AB W/REFL TO HCV RNA, QN, PCR Routine 02/18/2024 9:02 AM EDT Fatty liver HIV 1/2 ANTIGEN/ANTIBODY, FOURTH GENERATION W/RFL Routine 02/18/2024 9:02 AM EDT Screening for HIV (human immunodeficiency virus) LIPID PANEL, STANDARD Routine 02/11/2024 8:27 AM EDT Acquired hypothyroidism Hx of papillary thyroid carcinoma H/O thyroidectomy Screening for cholesterol level from Last 3 Months or Most Recently Relevant to Health Maintenance Results * BI Mammogram Screening Tomosynthesis Bilateral (02/24/2024 2:00 PM EDT) Anatomical Region Laterality Modality Breast Bilateral Mammography 02/24/2024 2:00 PM EDT Narrative 03/15/2024 8:24 PM EDT ? [facility] ? [address] ?[place] [address] ? Mammography Report ? Signed with Addenda ? Patient: Annmarie Holloway ?MR#: [id number] ?? 56 ? : 1970 ?Acct:[id number] ? Age/Sex: 53 / F ?ADM Date: 07/25/24 ? Loc: HO.MAMMO ? Attending Dr: Parag Name MD ? Ordering Physician: Name,Parag SHAH ?Results: 2Benign Fi ?? ndings ? Date of Service: 07/25/24 ?Follow Up: 1 Year From Orig ?? inal Mammogram ? Procedure(s): MM tomosynthesis screening BI ?? Accession Number(s): [id number] ? cc: Name,Parag SHAH ?ADDENDUM ? ADDENDUM #1 ? ADDENDUM: ? Upon further review, the subareolar focal asymmetry in the left breast ?? has been unchanged over numerous prior mammograms, dating back to 2016, ?? and is an ectatic duct, a benign finding. No further follow-up imaging ?? recommended at this time. ? Recommend the patient return to routine annual screening in one year. ? OVERALL ASSESSMENT: ?? BI-RADS 2 - Benign Findings ? RECOMMENDATION: ?? 1 year F/U ? Electronically signed by: ??Alex Brush MD ??06/27/2024 02:44 PM EST RP ? Addendum Dictated By: ?Alex Brush MD ? Addendum Signed By: ? <Electronically signed by Alex Brush MD in OV> ?06/27/24 1444 ?? Addendum Cosigned By: ? DD/ ? TD/TT: 02/24/24 ? EXAMINATION: ?? MM SCREENING DIGITAL BREAST TOMOSYNTHESIS, BILATERAL ? CLINICAL INFORMATION: ? Screening. Asymptomatic. ? COMPARISON: ?? Mammography: This study is compared with prior exams dating back to ?? 2019. ? TECHNIQUE: ?? Digital breast tomosynthesis is performed in both the craniocaudal and ?? mediolateral oblique views along with computer-aided detection (CAD). ?? Synthesized 2D images are generated from the tomosynthesis. ? FINDINGS: ?? There are scattered areas of fibroglandular density (ACR BI-RADS breast ?? composition Category b). ? There is a subareolar focal asymmetry in the left breast. Additional ?? mammographic and targeted sonographic imaging of this finding is ?? advised. ? In the right breast, there are no significant masses, abnormal ?? calcifications, or other abnormalities. ? MM/MM tomosynthesis screening BI ?? IMPRESSION: ?? Left subareolar focal asymmetry warrants additional mammographic and ?? targeted sonographic imaging. ? No mammographic signs of malignancy right breast. ? ASSESSMENT: ? BI-RADS BI-RADS 0 - Incomplete: Needs additional Imaging. ? RECOMMENDATION: ?? 1. Additional views of the left breast. ?? 2. Targeted ultrasound is warranted after review of the additional ?? views. ?? 3. Radiology department staff will contact the patient for additional ?? imaging. ? Additional Imaging required ? This examination should not preclude the clinical evaluation of a ?? suspicious palpable abnormality. ? This patient's information was entered into a reminder system with a ?? target due date for their next mammogram. ? Dictated By: ?Indira Adams MD ? Signed By: ?<Electronically signed by Indira Adams MD in OV> ? 03/15/242019 ? DD/ 1400 ? TD/TT: ? Public Health Physician: ? Procedure Note Donmarcyter, Image - 06/27/2024 [facility] [address] [place] [address] Mammography Report Signed with Addenda Patient: Josué Holloway#: [id number] 56 : 1970Acct:[id number] Age/Sex: 53 / FADM Date: 02/24/24 Loc: HO.MAMMO Attending Dr: Parag Maria MD Ordering Physician: Parag Maria MDResults: 2Benign Fi ndings Date of Service: 02/24/24Follow Up: 1 Year From Orig ina Mammogram Procedure(s): MM tomosynthesis screening BI Accession Number(s): [id number] cc: Parag Maria MD ADDENDUM ADDENDUM #1 ADDENDUM: Upon further review, the subareolar focal asymmetry in the left breast has been unchanged over numerous prior mammograms, dating back to 2016, and is an ectatic duct, a benign finding. No further follow-up imaging recommended at this time. Recommend the patient return to routine annual screening in one year. OVERALL ASSESSMENT: BI-RADS 2 - Benign Findings RECOMMENDATION: 1 year F/U Electronically signed by: Alex Brush MD 06/27/2024 02:44 PM EST Addendum Dictated By: Alex Brush MD Addendum Signed By: <Electronically signed by Alex Brush MD in OV> 06/27/241443 Addendum Cosigned By: DD/ TD/TT: 02/24/24 EXAMINATION: [...] by Indira Adams MD in OV> 03/15/242019 DD/ 99 TD/TT: Public Health Physician: Parag Maria MD IM BI PROCEDURES Edited Result - Final * Hepatitis C Antibody with Reflex to HCV, RNA, Quantitative, Real-Time PCR (02/18/2024 9:02 AM EDT) Hepatitis C Antibody Nonreactive Nonreactive [facility] Comment:Antibodies to HCV no t detected; does not exclude early acuteHCV infection. Blood Venous blood specimen / Unknown 02/18/2024 9:02 AM EDT 02/18/2024 10:40 AM EDT us Parag Maria MD LAB BLOOD ORDERABLES Final Resul t Performing Organization Address [facility]/ZIP Co de Phone Number [facility] [address] [place] [address] [phone] * HIV-1/2 Antigen and Antibodies, Fourth Generation, with Reflexes (02/18/2024 9:02 AM EDT) Pathologist [facility] HIV AB/AG Nonreactive Nonreactive [facility] Comment:HIV-1 p24 Ag and/or HIV-1/HIV-2 Ab not detected.A test result that is nonreactive does not exclude thepossibility of exposure to or infection with HIV-1 and/orHIV-2. Nonreactive results in this assay for individualswith prior exposure to HIV-1 and/or HIV-2 may be due toantigen and antibody levels that are below the limit ofdetection of this assay.The [employer] HIV Ag/Ab Combo assay result andsupplemental assay results should be interpreted inconjunction with the patient's clinical presentation,history and other laboratory results. If the results areinconsistent with clinical evidence, additional testing issuggested to confirm the result. Blood Venous blood specimen / Unknown 02/18/2024 9:02 AM EDT 02/18/2024 10:40 AM EDT us Parag Maria MD LAB BLOOD ORDERABLES Final Resul t Performing Organization Address [facility] Co de Phone Number [facility] [address] [place] [address] [phone] * Lipid Panel, Standard (02/11/2024 8:27 AM EDT) Triglycerides 93 <150 mg/dL [facility] Comment:Desirable Triglyceri de: less than 150 mg/dLBorderline High Triglyceride 150-199 mg/dLHigh Triglyceride: 200-499 mg/dLVery High Triglyceride: greater than or equal to 5OO mg/dL Cholesterol 168 <200 mg/dL [facility] Comment:Desirable Cholestero l: less than 200 mg/dLBorderline High Cholesterol: 200-239 mg/dLHigh Cholesterol: greater than 239 mg/dL LDL Cholesterol Calculated 95 <100 mg/dL [facility] Comment:Desirable LDL: less than 100 mg/dLNear Optimal/Above Optimal LDL: 110- 129 mg/dLBorderline High LDL: 130-159 mg/dLHigh LDL: 160-189 mg/dLVery High LDL: greater than or equal to 190 mg/dL HDL Cholesterol 55 >40 mg/dL [facility] Comment:Desirable HDL: great er than 40 mg/dL Note: This HDL assay may give artificially low results in patients with liver disease. Blood Venous blood specimen / Unknown 02/11/2024 8:27 AM EDT 02/11/2024 11:06 AM EDT us Parag Name LAB BLOOD ORDERABLES Final Resul t [facility] [address] [place] [address] [phone] from Last 3 Months or Most Recently Relevant to Health Maintenance Insurance [facility] C3 * Guarantor: Annmarie Holloway Account Type Relation to Patient Date of Phone Billing Address Personal/Family Self [address] [place] [address] Care Teams Operating Systems Specialist Relationship Specialty Start Date End Date Name, MD Parag [address] [place] [address] [place] [address] PCP - General Family Medicine 12/24/15
--- OUTSIDE RECORDS SUMMARY | 2024-08-29 13:02 | XMS_ITS | Encounter Summary ---
Author Organization [employer] Address [address] [facility] [address] [place] [address] Care Team Providers Care Outreach Team Member Name Role Phone Name, Parag SHAH Primary Care Provider [phone] Reason for Visit * Reason Comments joint pain (generalized) Encounter Details Date Type Department Care Team ([facility] st Contact Info) Description 08/29/2024 11:15 AM EST Office Visit [facility] [address] [place], [place] [phone] Name, MD Parag [address] [place] [address] Arthralgia, unspecified joint (Primary Dx) Social History Tobacco Use Types Packs/Day Years [...] AM EDT documented as of this encounter Last Filed Vital Signs Vital Sign Reading [...] Mass Index 34.08 08/29/2024 11:14 AM EST documented in this encounter Progress Notes * Parag Maria MD - 08/29/2024 11:15 AM EST Subjective Patient ID: Annmarie Holloway is a 53 y.o. female who presents for joint pain (generalized). Patient comes for a sick visit. She complains of several weeks of generalized joint pains. She was attributing her symptoms to her current form of thyroid supplementation. She does not have any jointswelling or redness. She describes pain on her hands, wrists, knees, hips. She describes difficultydoing activities like opening jars or getting up from a chair. She does not have any family historyof rheumatoid arthritis. She does not have any rash, no fevers or chills, no weight loss. Review of Systems Constitutional: Negative for chills and fever. HENT: Negative for sore throat. Respiratory: Negative for cough, shortness of breath and wheezing. Cardiovascular: Negative for chest pain, palpitations and leg swelling. Gastrointestinal: Negative for abdominal pain. Musculoskeletal: See HPI Visit Vitals BP 110/71 (BP Location: Left arm, Patient Position: Sitting, BP Cuff Size: Large adult) Pulse 63 Temp 96.2 ??F (35.7 ??C) (Temporal) Resp 21 Ht 5' 9 (1.753 m) Wt 230 lb 12.8 oz (105 kg) SpO2 98% BMI 34.08 kg/m?? Smoking Status Never BSA 2.26 m?? Objective Physical Exam Constitutional: Appearance: Normal appearance. Cardiovascular: Rate and Rhythm: Normal rate and regular rhythm. Heart sounds: No murmur heard. No gallop. Pulmonary: Effort: Pulmonary effort is normal. No respiratory distress. Breath sounds: Normal breath sounds. No wheezing. Musculoskeletal: General: No swelling or deformity. Right lower leg: No edema. Left lower leg: No edema. Neurological: Mental Status: She is alert. Assessment/Plan Diagnoses and all orders for this visit: Arthralgia, unspecified joint Comments: Trial of Celebrex. Check fasting blood work listed below. Further recommendation based on the results and response to medication. Orders: - C-reactive Protein; Future - Sed Rate by Modified Westergren; Future - JC Screen,IFA, with Reflex to Titer and Pattern; Future - Rheumatoid Factor; Future - CBC auto differential; Future - Comprehensive Metabolic Panel; Future Other orders - celecoxib (CeleBREX) 200 MG capsule; Take 1 capsule (200 mg) by mouth 2 times daily for 20 days. documented in this encounter Plan of Treatment Scheduled Orders Name Type Priority Associated Diagnoses Orde r Schedule C-reactive Protein Lab Routine Arthralgia, unspecified joint Expected: 08/29/2024 (Approximate), Expires: 08/29/2025 Sed Rate by Modified Westergren Lab Routine Arthralgia, unspecified joint Expected: 08/29/2024, Expires: 08/29/2025 JC Screen,IFA, with Reflex to Titer and Pattern Lab Routine Arthralgia, unspecified joint Expected: 08/29/2024 (Approximate), Expires: 08/29/2025 Rheumatoid Factor Lab Routine Arthralgia, unspecified joint Expected: 08/29/2024, Expires: 08/29/2025 CBC auto differential Lab Routine Arthralgia, unspecified joint Expected: 08/29/2024 (Approximate), Expires: 08/29/2025 Comprehensive Metabolic Panel Lab Routine Arthralgia, unspecified joint Expected: 08/29/2024 (Approximate), Expires: 08/29/2025 documented as of this encounter Visit Diagnoses Diagnosis Arthralgia, unspecified joint- Primary documented in this encounter Additional Health Concerns Assessment Noted Time PHQ-9 Depression Total Score: 0 02/17/20 24 11:11 AM EDT documented as of this encounter Care Teams Outreach Team Member Relationship Specialty Start Date End Date Name, MD Parag [address] [place] [address] PCP - General Family Medicine 12/24/15 documented as of this encounter
[2024-08-29 13:27] LABS: MANUAL DIFF FLAG NO
[2024-08-29 13:33] LABS: Basophils Absolute Auto 0.1 X10*3/uL (0.0-0.2); Basophils Percent Auto 1.1 % (0-2); Eosinophils Absolute Auto 0.2 X10*3/uL (0.0-0.4); Eosinophils Percent Auto 2.7 % (0-4); Hematocrit 43.5 % (37.0-47.0); Hemoglobin 14.4 g/dl (12.0-16.0); Imm Gran Abs Auto 0.02 X10*3/uL (0.00-0.03); Imm Gran Pct Auto 0.3 % (0.0-0.4); Lymphocytes Absolute Auto 1.8 X10*3/uL (1.2-4.9); Lymphocytes Percent Auto 29.4 % (20-40); Mean Corpuscular HGB Conc 33.1 g/dl (31.0-35.0); Mean Corpuscular Hemoglobin 30.6 pg (27.0-33.0); Mean Corpuscular Volume 92.4 fL (80.0-98.0); Monocytes Absolute Auto 0.5 X10*3/uL (0.1-1.2); Neutrophils Absolute Auto 3.6 x10*3/uL (2.0-8.3); Neutrophils Percent Auto 58.5 % (45-73); Platelet Count 131 X10*3/uL (160-400); Red Blood Count 4.71 X10*6/uL (4.20-5.50); White Blood Count 6.2 X10*3/uL (4.8-10.8)
[2024-08-29 13:52] LABS: Rheumatoid Factor < 13.0 IU/mL (<15.0)
[2024-08-29 13:59] LABS: Alanine Aminotransferase 75 U/L (0-31); Albumin Level 3.9 g/dL (3.5-5.0); Alkaline Phosphatase 116 U/L (39-117); Anion Gap 11 (12-20); Aspartate Amino Transferase 78 U/L (5-31); Bilirubin Total 0.4 mg/dL (0.0-1.0); Blood Urea Nitrogen 12 mg/dL (9-16); C Reactive Protein 0.32 mg/dL (< or = 0.50); Calcium 8.9 mg/dL (8.4-10.2); Carbon Dioxide 28 mmol/L (22-29); Chloride 109 mmol/L (96-108); Estimated Glomerular Filt Rate > 60; Glucose Random 103 mg/dL (60-115); Potassium 4.5 mmol/L (3.3-5.1); Sodium 143 mmol/L (135-145); Total Protein 7.5 g/dL (6.5-8.0)
[2024-08-29 14:09] LABS: Erythrocyte Sedimentation Rate 23 MM/HR (0-20)
[2024-09-01 15:33] LABS: Anti Nuclear Antibody Screen POSITIVE (NEGATIVE)
== END 2024-08-29 11:58 | disposition home or self-care (01) ==
LOC: HO.HHCL 11:57
PROVIDERS: Visit Provider Internal Medicine Geriatric Medicine
DX: M25.50 Pain in unspecified joint (principal)
CPT/HCPCS: 36415; 80053; 85025; 85652; 86038; 86039; 86140; 86431

== ENCOUNTER 2024-09-17 13:42 | Emergency (ER) | payer MEDICAID, SELFPAY ==
--- NOTE | ~2024-09-17 | XR_ITS ---
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 No acute fracture of the hand. No significant arthritic change. No erosions. No radiopaque foreign body. IMPRESSION: No evidence of acute fracture of the hand. A prominent bony structure of the dorsal aspect of the wrist only visualized on the lateral view. Clinical correlation is recommended to exclude triquetral fracture. Further evaluation by CT as indicated. This document has been electronically signed by: Iban Barrett MD on 09/17/2024 15:12:37
--- NOTE | ~2024-09-17 | CT_ITS ---
CLINICAL HISTORY: L wrist injury ?fx CT left wrist without contrast Comparison: CR - XR HAND WRIST LT - 09/17/24 14:08 EST CR - XR HAND WRIST LT - 02/14/21 12:38 EDT Findings: No fractures or dislocations. No significant arthritic change. No radiopaque foreign body. Soft tissue is unremarkable. Impression: No acute fracture. This document has been electronically signed by: Iban Barrett MD on 09/17/2024 17:51:06
--- NOTE | ~2024-09-17 | XR_ITS ---
CLINICAL HISTORY: fall 2 view left forearm Comparison: None Findings: No fractures or dislocations. No joint effusion. No significant arthritic change. No radiopaque foreign body. IMPRESSION: No acute findings This document has been electronically signed by: Iban Barrett MD on 09/17/2024 15:40:50
[2024-09-17 13:44] VITALS: BP 189/95; PULSE 102; RESP 16; TEMP 36.5; O2SAT 96; BMI 33.4
--- NOTE | 2024-09-17 13:45 | ED_ITS ---
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 Denies head trauma or LOC. denies injury to other area. Denies numbness, tingling, weakness. Right-hand dominant. Related Data Home Medications ?Medication ?Instructions ?Recorded ?Confirmed cyclobenzaprine 10 mg tablet 10 mg PO BEDTIME 12/02/20 10/03/21 Previous Rx's ?Medication ?Instructions ?Recorded Levoxyl 100 mcg tablet 100 mcg PO DAILY #30 tabs 04/07/23 (levothyroxine) Allergies Allergy/AdvReac Type Severity Reaction Status Date / Time No Known Allergies Allergy Verified 09/17/24 13:47 [No Known Allergies*] Review of Systems Review of Systems: Yes all other systems are reviewed and are negative Constitutional: Constitutional: Reports as per [facility] Past Medical History Attestation statement: The following information was validated with the patient. Source: old records reviewed Medical History Post-surgical hypothyroidism Primary thyroid cancer Surgical History Hx of total thyroidectomy Hx of cholecystectomy Hx of hysterectomy Family History Family History Father Alcoholic Mother Hypertension CVD (cardiovascular disease) Diabetes Social History Social History Alcohol intake: current Alcohol intake frequency: does not drink Patient Tobacco Use Status: Never used Tobacco Advance Directives: No Advance Directives Information Provided: No Do you have a plan to hurt others: No Plan Physical Exam Vital Signs: Vital Signs: Last Vital Signs Temp 97.7 F 09/17/24 13:44 Pulse 102 H 09/17/24 13:44 Resp 16 09/17/24 13:44 BP 189/95 H 09/17/24 13:44 Pulse Ox 96 09/17/24 13:44 O2 Del Method Room Air 09/17/24 13:44 BMI result Body Mass Index 33.4 Const: General: cooperative, healthy appearing and no acute distress Orientation/consciousness: patient oriented x3 Limitations: no limitations HEENT: Head: Yes normal to inspection and Yes atraumatic Ears: hearing grossly normal bilaterally General nose exam: Normal external nose present Face and sinus: Yes normal facial exam Eyes: General: appearance normal, both eyes and all related structures EOM: EOMs intact bilaterally Neck: Neck: Yes normal visual inspection and Yes no meningeal signs Resp: Effort & Inspection: normal respiratory effort and no respiratory distress Cardio: Rate: regular rate Skin: Rashes: no rashes Wounds: no wounds Neuro: General: patient oriented x3, tone normal and no meningeal signs Cranial nerves: Yes CN's II-XII intact bilaterally Gait exam (Neuro): Normal gait present Extrem: Other: Left shoulder/clavicle without tenderness or deformity Left elbow nontender. Full range of motion intact Left distal forearm with mild swelling and tenderness to palpation. Left wrist with mild tenderness. Hand nontender. Umbcva-db-jhpjl opposition intact. No snuffbox tenderness Course Course Course Narrative: This is a Rapid Medical Exam performed in triage by Mariana Barrios PA-C. Full HPI, ROS and PE to be performed by primary ED provider. 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 +R hand dominant PE: +L wrist swelling & ttp. limited ROM. NV intact Plan: XRs XR forearm LT 2V IMPRESSION: No acute findings XR hand wrist LT IMPRESSION: No evidence of acute fracture of the hand. A prominent bony structure of the dorsal aspect of the wrist only visualized on the lateral view. Clinical correlation is recommended to exclude triquetral fracture. Further evaluation by CT as indicated. > will obtain CT for further eval ADDENDUMThis document has been electronically signed by: Iban Barrett MD on 09/17/2024 15:12:37 ADDENDUM: The bony structure on the dorsal aspect of the wrist is also noted on the prior radiograph 02/14/2021. The finding is likely to be chronic. The prior report is not available for review. 1907--CT wrist LT wo IV con Impression: No acute fracture. > Velcro volar wrist splint applied Results discussed with patient including worrisome signs and symptoms and strict return precautions, and when to return to the emergency department. They verbalized understanding and feel safe for discharge at this time. Medications Administered Discontinued Medications Generic Name Dose Route Start Last Admin Trade Name Romulo PRN Reason Stop Dose Admin Ibuprofen 600 mg 09/17/24 17:03 09/17/24 17:28 Ibuprofen 600 Mg Tablet PO 09/17/24 17:04 600 mg ONCE ONE Administration Medical Decision Making Medical Decision Making MDM Narrative: 34-year-old female no significant past medical history presenting to the ED complaining of left wrist/forearm pain s/p mechanical slip and fall on ice in front of her house [employer]. On exam mildly tachycardic likely from pain, NAD, nontoxic appearing, physical exam as noted above. Concern for sprain vs fracture. Low suspicion for septic joint/arthritis. Plan: X-rays Please refer to course for remaining clinical decision making, interpretation of labs/imaging results, and discussions with consultants and/or family members. Differential Diagnosis Differential Diagnoses: The differential diagnosis associated with the presentation includes As above Independent Interpretation I performed an independent interpretation of an: Plain X-Ray and CT Scan Radiology Impression Discussion of test interpretation with radiology: I have reviewed the radiologist's reading. External Record Review External record reviewed: Inpatient record, Office record, Outpatient record, Prior outpatient labs, Prior outpatient radiology, Primary care record and Outside ED record Tests considered The following testing was considered but not selected: As above Prescription Management I considered prescription management with: Pain Medication Chronic Conditions Patient?s care impacted by: Other Social Determinants Patient?s care significantly limited by Social Determinants of Health including: Other Social Determinant of Health Procedures Orthopedic Splinting/Casting Injury #1: Side: left Upper Extremity Injury Location: forearm and wrist Upper Extremity Immobilizer: volar splint Discharge Plan Discharge Clinical Impression: Left wrist sprain Patient Disposition: Home, Self-Care Instructions: Wrist Sprain (ED) Additional Instructions: Your CT scan and x-rays are unremarkable You sprain your wrist Wear splint as needed for comfort and stability Ice and elevate Follow up with your doctor If symptoms persist or worsen or area begins to look infected return to the ED Prescriptions: No Action levothyroxine [Levoxyl] 100 mcg tablet 100 mcg PO DAILY Qty: 30 5RF cyclobenzaprine 10 mg tablet 10 mg PO BEDTIME Referrals: Name,MD Parag [Primary Care Provider] - 1 week Print Language: Romansh
[2024-09-17] MEDS: Ibuprofen 600 MG TABLET PO (17:28)
--- OUTSIDE RECORDS SUMMARY | 2024-09-17 19:07 | XMS_ITS | Encounter Summary ---
Author Organization [id number] Address [address] [place] [address] Care Team Providers Care Palliative Senior Np Name Role Phone Name, Parag SHAH Primary Care Provider [phone] Reason for Visit * Reason Onset Date Comments chart prep 08/28/2024 Encounter Details Date Type Department Care Team ([facility] Contact Info) Description 08/28/2024 Telephone [facility] [address] [place] [address] Laxmi Cadet [place] chart prep Social History [...] documented as of this encounter Care Teams Palliative Senior Np Relationship Specialty Start Date End Date Name, MD Parag [address] [place] [address] PCP - General Family Medicine 12/24/15 documented as of this encounter
--- OUTSIDE RECORDS SUMMARY | 2024-09-17 19:07 | XMS_ITS | Encounter Summary ---
Author Organization [employer] Address [address], [place] [address] Care Team Providers Care Vapor Coater Name Role Phone Parag Maria MD Primary Care Provider Reason for Referral * Consultation (Routine) - Authorized Specialty Diagnoses / Procedures Referred By Contac t Referred To Contact Rheumatology Diagnoses Arthralgia, unspecified joint JC positive Parag Maria MD [address] [place] [address] Phone: tel: fax: [facility] [address] [place] [address] Phone: tel: fax: Referral ID Status Reason Start Date Expiration Date Visits Requested Visits Authorized [id number] Authorized Specialty Services Required 09/04/2024 09/04/2025 1 1 Encounter Details Date Type Department Care Team (Late st Contact Info) Description 09/04/2024 Orders Only [facility] MED[facility]INE [address] [place] [id number] Parag Maria MD [address] [place] [phone] Arthralgia, unspecified joint (Primary Dx); JC positive Social History Tobacco Use Types Packs/Day Years [...] as of this encounter Plan of Treatment Scheduled Referrals Name Type Priority Associated Diagnoses Orde r Schedule Referral to Rheumatology Outpatient Referral Routine Arthralgia, unspecified joint JC positive Expected: 09/04/2024 (Approximate), Expires: 09/04/2025 documented as of this encounter Procedures Procedure Name Priority Date/Time Associated Diagnosis Comments CT WRIST WO CONTRAST LEFT Routine 09/17/2024 5:51 PM EST XR FOREARM 2 VIEWS LEFT Routine 09/17/2024 3:40 PM EST XR HAND WRIST LT Routine 09/17/2024 3:12 PM EST documented in this encounter Results * CT Wrist w/o Contrast Left (09/17/2024 5:51 PM EST) Anatomical Region Laterality Modality Upper Extremities, Wrist Left Compute d Tomography 09/17/2024 5:51 PM EST Narrative 09/17/2024 5:52 PM EST ? [facility] ?[address] ?[place] [address] ? CT Scan Report ? Signed ? Patient: Holloway,Annmarie ?MR#: [id number] ?? 56 ? : 1970 ?Acct:[id number] ? Age/Sex: 54 / F ?ADM Date: 09/17/24 ? Loc: HO.ED ? Attending Dr: ? Ordering Physician: Mariana Barrios ?? Date of Service: 09/17/24 ?? Procedure(s): CT wrist LT wo IV con ?? Accession Number(s): [id number] ? cc: Candace,Parag SHAH; Mariana Barrios ? Report Number: ?? [id number]: Total DLP = ??109.00 mGy-cm ? CLINICAL HISTORY: L wrist injury ?fx ? CT left wrist without contrast ? Comparison: CR - XR HAND WRIST LT - 09/17/24 14:08 EST ?? CR - XR HAND WRIST LT - 02/14/21 12:38 EDT ? Findings: ?? No fractures or dislocations. No significant arthritic change. ?? No radiopaque foreign body. Soft tissue is unremarkable. ? Impression: ?? No acute fracture. ? This document has been electronically signed by: Iban Barrett MD on ?? 09/17/2024 17:51:06 ? Dictated By: ?Iban Barrett MD ? Signed By: ?<Electronically signed by Iban Barrett MD in OV> ? 09/17/24 1752 ? DD/ 175 ? TD/TT: 09/17/24 1751 ? Crisis Manager: ? Procedure Note Quentin Cárdenas - 09/17/[address] [address] [address] Scan Report Signed Patient: Josué Holloway#: [id number] 56 : 1970Acct:[id number] Age/Sex: 54 / FADM Date: 09/17/24 Loc: HO.ED Attending Dr: Ordering Physician: Mariana Barrios Date of Service: 09/17/24 Procedure(s): CT wrist LT wo IV con Accession Number(s): [id number] cc: Name,Parag SHAH; Mariana Barrios Report Number: [id number]: Total DLP = 109.00 mGy-cm CLINICAL HISTORY: L wrist injury ?fx CT left wrist without contrast Comparison: CR - XR HAND WRIST LT - 09/17/24 14:08 EST CR - XR HAND WRIST LT - 02/14/21 12:38 EDT Findings: No fractures or dislocations. No significant arthritic change. No radiopaque foreign body. Soft tissue is unremarkable. Impression: No acute fracture. This document has been electronically signed by: Iban Barrett MD on 09/17/2024 17:51:06 Dictated By: Iban Barrett MD Signed By: <Electronically signed by Iban Barrett MD in OV> 09/17/24 1752 DD/ 1751 TD/TT: 09/17/24 1751 Crisis Manager: [facility] External Provider IMG CT PROCEDURES Edited Result - Final * XR Forearm 2 Views Left (09/17/2024 3:40 PM EST) Anatomical Region Laterality Modality Upper Extremities, Forearm Left Radio graphic Imaging 09/17/2024 3:40 PM EST Narrative 09/17/2024 3:42 PM EST ? [facility] ?[address] ?[place] [address] ?XRay Report ? Signed ? Patient: Holloway,Annmarie ?MR#: [id number] ?? 56 ? : 1970 ?Acct:[id number] ? Age/Sex: 54 / F ?ADM Date: 02/16/25 ? Loc: HO.ED ? Attending Dr: ? Ordering Physician: Mariana Barrios ?? Date of Service: 09/17/24 ?? Procedure(s): XR forearm LT 2V ?? Accession Number(s): [id number] ? cc: Name,Parag SHAH; Mariana Barrios ? CLINICAL HISTORY: fall ? 2 view left forearm ? Comparison: None ? Findings: ?? No fractures or dislocations. ?? No joint effusion. ?? No significant arthritic change. ?? No radiopaque foreign body. ? IMPRESSION: ?? No acute findings ? This document has been electronically signed by: Iban Barrett MD on ?? 09/17/2024 15:40:50 ? Dictated By: ?Iban Barrett MD ? Signed By: ?<Electronically signed by Iban Barrett MD in OV> ? 09/17/24 1541 ? DD/ 1540 ? TD/TT: 09/17/24 1540 ? Crisis Manager: ? Procedure Note Donsridhar, Image - 09/17/2024 [place] [address] XRay Report Signed Patient: Josué Holloway#: [id number] 56 : 1970Acct:[id number] Age/Sex: 54 / FADM Date: 09/17/24 Loc: HO.ED Attending Dr: Ordering Physician: Mariana Barrios Date of Service: 09/17/24 Procedure(s): XR forearm LT 2V Accession Number(s): [id number] cc: Parag Maria MD; Mariana Barrios CLINICAL HISTORY: fall 2 view left forearm Comparison: None Findings: No fractures or dislocations. No joint effusion. No significant arthritic change. No radiopaque foreign body. IMPRESSION: No acute findings This document has been electronically signed by: Iban Barrett MD on 09/17/2024 15:40:50 Dictated By: Iban Barrett MD Signed By: <Electronically signed by Iban Barrett MD in OV> 09/17/24 1541 DD/ 1540 TD/TT: 09/17/24 154 Crisis Manager: [facility] External Provider IMG XR PROCEDURES Edited Result - Final * XR HAND WRIST LT (09/17/2024 3:12 PM EST) Anatomical Region Laterality Modality Abdomen Radiographic Maria Del Carmen ging 09/17/2024 3:12 PM EST Narrative 09/17/2024 3:13 PM EST ? [facility] ?[address] ?[place] [address] ?XRay Report ? Signed with Addenda ? Patient: Holloway,Annmarie ?MR#: [id number] ?? 56 ? : 1970 ?Acct:[id number] ? Age/Sex: 54 / F ?ADM Date: 09/17/24 ? Loc: HO.ED ? Attending Dr: ? Ordering Physician: Mariana Barrios ?? Date of Service: 09/17/24 ?? Procedure(s): XR hand wrist LT ?? Accession Number(s): [id number] ? cc: Name,Parag SHAH; Mariana Barrios ?ADDENDUM ?? This document has been electronically signed by: Iban Barrett MD on ?? 09/17/2024 15:12:37 ? ADDENDUM: ?? The bony structure on the dorsal aspect of the wrist is also noted on the ?? prior radiograph 02/14/2021. The finding is likely to be chronic. The ?? prior report is not available for review. ? This document has been electronically signed by: Iban Barrett MD on ?? 09/17/2024 15:37:46 ? Addendum Dictated By: ?Iban Barrett MD ? Addendum Signed By: ? <Electronically signed by Iban Barrett MD in OV> ? 09/17/24 1538 ?? Addendum Cosigned By: ? DD/ ? TD/TT: 09/17/24 ? 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 Three-view left hand and four view view of the wrist ? Comparison: None ? Findings: ?? On the lateral view, there is a prominent bony structure of the dorsal ?? aspect of the wrist. ?? No acute fracture of the hand. ?? No significant arthritic change. ?? No erosions. No radiopaque foreign body. ? IMPRESSION: ?? No evidence of acute fracture of the hand. ?? A prominent bony structure of the dorsal aspect of the wrist only ?? visualized on the lateral view. Clinical correlation is recommended to ?? exclude triquetral fracture. Further evaluation by CT as indicated. ? This document has been electronically signed by: Iban Barrett MD on ?? 09/17/2024 15:12:37 ? Dictated By: ?Iban Barrett MD ? Signed By: ?<Electronically signed by Iban Barrett MD in OV> ? 09/17/24 1512 ? DD/ 1512 ? TD/TT: 09/17/24 1512 ? Crisis Manager: ? Procedure Note Donotuseinterpreter, Image - 09/17/[address] [address] XRay Report Signed with Addenda Patient: Josué Holloway#: [id number] 56 : 1970Acct:[id number] Age/Sex: 54 / FADM Date: 09/17/24 Loc: HO.ED Attending Dr: Ordering Physician: Mariana Barrios Date of Service: 09/17/24 Procedure(s): XR hand wrist LT Accession Number(s): [id number] cc: Name,Parag SHAH; Mariana Barrios ADDENDUM This document has been electronically signed by: Iban Barrett MD on 09/17/2024 15:12:37 ADDENDUM: The bony structure on the dorsal aspect of the wrist is also noted on the prior radiograph 02/14/2021. The finding is likely to be chronic. The prior report is not available for review. 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 No acute fracture of the hand. No significant arthritic change. No erosions. No radiopaque foreign body. IMPRESSION: No evidence of acute fracture of the hand. A prominent bony structure of the dorsal aspect of the wrist only visualized on the lateral view. Clinical correlation is recommended to exclude triquetral fracture. Further evaluation by CT as indicated. This document has been electronically signed by: Iban Barrett MD on 09/17/2024 15:12:37 Dictated By: Iban Barrett MD Signed By: <Electronically signed by Iban Barrett MD in OV> 09/17/241511 DD/ 1512 TD/TT: 09/17/24 1512 Crisis Manager: [facility] External Provider IMG XR PROCEDURES Edited Result - Final documented in this encounter Visit Diagnoses Diagnosis Arthralgia, unspecified joint- Primary JC positive documented in this encounter Additional Health Concerns Assessment Noted Time PHQ-9 Depression Total Score: 0 02/17/20 24 11:11 AM EDT documented as of this encounter Care Teams Vapor Coater Relationship Specialty Start Date End Date Name, MD Parag [address] [place] [address] PCP - General Family Medicine 12/24/15 documented as of this encounter
--- OUTSIDE RECORDS SUMMARY | 2024-09-17 19:07 | XMS_ITS | Encounter Summary ---
Author Organization [employer] Address [address] [place] [address] Care Team Providers Care It Program Auditor Name Role Phone Name, Parag SHAH Primary Care Provider [phone] Reason for Visit * Reason Comments Med Change Request Encounter Details Date Type Department Care Team ([facility] st Contact Info) Description 03/01/2024 Refill [facility] MEDICINE [address] [place], [place] [phone] Name, MD Parag [address] [place] [address] Social History Tobacco Use Types Packs/Day Years [...] documented as of this encounter Care Teams It Program Auditor Relationship Specialty Start Date End Date Name, MD Parag [address] [place] [id number] PCP - General Family Medicine 12/24/15 documented as of this encounter
--- OUTSIDE RECORDS SUMMARY | 2024-09-17 19:07 | XMS_ITS | Clinical Summary ---
Author Organization [employer] Address [address] [place] [address] Care Team Providers Care Program Manager Slp Name Role Phone Name, Parag SHAH Primary Care Provider [phone] Allergies No known active allergies Medications Levoxyl [...] neck and submandibular glands. 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 there [...] Encounters Date Type Department Care Team Description 09/04/2024 Orders Only [facility] [address] NameParag MD Arthralgia, unspecified joint (Primary Dx); JC positive 08/29/2024 11:15 AM EST Office Visit [facility] [place] [address] Parag Maria MD Arthralgia, unspecified joint (Primary Dx) 08/28/2024 Telephone [facility] [address] [place] [address] Laxmi Cadet MA chart prep 08/23/2024 9:15 AM EST Telemedicine [facility] [address] [place] [address] Parag Maria MD Arthralgia, unspecified joint (Primary Dx); Healthcare maintenance from Last 3 Months Immunizations Name Administration [...] is your housing situation today? I have erinlinda kumari 02/17/[address] you [...] - 19+ 3-dose series) 07/12/2018 05/17/2018, 10/04/2017 Pneumococcal Vaccine: 50+ Years (1 of 1 - PCV) 2019 COVID-19 Vaccine (4 - season) 2024 07/02/2021, 10/29/2020, 10/01/2020 Influenza Vaccine (#1) 2024 05/17/2018, 2016 Alcohol/Substance Use Screening 02/16/2025 02/17/2024 Depression Screening 02/16/2025 02/17/2024, 02/17/20 24 SDOH Screening 02/16/2025 02/17/2024 Tobacco Screening 08/29/2025 08/29/2024 Mammogram 02/23/2026 02/24/2024, 04/2 , 02/26/2021, Additional history exists Lipid Panel [...] WRIST LT Routine 09/17/2024 3:12 PM EST COMPREHENSIVE METABOLIC PANEL Routine 08/29/2024 12:00 PM EST Arthralgia, unspecified joint CBC WITH AUTO DIFFERENTIAL Routine 08/29/2024 12:00 PM EST Arthralgia, unspecified joint RHEUMATOID FACTOR Routine 08/29/2024 12: 00 PM EST Arthralgia, unspecified joint JC SCREEN, IFA, W/REFL TITER AND PATTERN Routine 08/29/2024 12:00 PM EST Arthralgia, unspecified joint SED RATE BY MODIFIED WESTERGREN Routine 08/29/2024 12:00 PM EST Arthralgia, unspecified joint C-REACTIVE PROTEIN Routine 08/29/2024 12 :00 PM EST Arthralgia, unspecified joint BI MAMMOGRAM SCREENING TOMOSYNTHESIS BILATERAL Routine 02/24/2024 [...] Recently Relevant to Health Maintenance Results * CT Wrist w/o Contrast Left (09/17/2024 5:51 PM EST) Anatomical Region Laterality Modality Upper Extremities, Wrist Left Compute d Tomography 09/17/2024 5:51 PM EST Narrative 09/17/2024 5:52 PM EST ? [facility] ?[address] ?[place] [address] ? CT Scan Report ? Signed ? Patient: Holloway,Annmarie ?MR#: [id number] ?? 56 ? : 1970 ?Acct:[id number] ? Age/Sex: 54 / F ?ADM Date: 09/17/24 ? Loc: HO.ED ? Attending Dr: ? Ordering Physician: Mariana Barrios ?? Date of Service: 09/17/24 ?? Procedure(s): CT wrist LT wo IV con ?? Accession Number(s): [id number] ? cc: Name,Parag SHAH; Mariana Barrios ? Report Number: ?? [id number]: Total DLP = ??109.00 mGy-cm ? CLINICAL [...] in OV> ? 09/17/24 1752 ? DD/ 1751 ? TD/TT: 09/17/24 1751 ? Flight Test Mechanic: ? Procedure Note Avi, Image - 09/17/[address] [place] [address] [address] Scan Report Signed Patient: Josué Holloway#: [id number] 56 : 1970Acct:[id number] Age/Sex: 54 / FADM Date: 09/17/24 Loc: HO.ED Attending Dr: Ordering Physician: Mariana Barrios Date of Service: 09/17/24 Procedure(s): CT wrist LT wo IV con Accession Number(s): [id number] cc: Name,Parag SHAH; Mariana Barrios Report Number: [id number]: Total DLP = 109.00 mGy-cm CLINICAL HISTORY: [...] OV> 09/17/24 1752 DD/ 1751 TD/TT: 09/17/24 175 Flight Test Mechanic: [facility] External Provider IMG CT PROCEDURES Edited Result - Final * XR Forearm 2 Views Left (09/17/2024 3:40 PM EST) Anatomical Region Laterality Modality Upper Extremities, Forearm Left Radio graphic Imaging 09/17/2024 3:40 PM EST Narrative 09/17/2024 3:42 PM EST ? [facility] ?[address] ?[place] [address] ?XRay Report ? Signed ? Patient: Annmarie Holloway ?MR#: [id number] ?? 56 ? : 1970 ?Acct:[id number] ? Age/Sex: 54 / F ?ADM Date: 09/17/24 ? Loc: HO.ED ? Attending Dr: ? Ordering Physician: Mariana Barrios ?? Date of Service: 09/17/24 ?? Procedure(s): XR forearm LT 2V ?? Accession Number(s): [id number] ? cc: Parag Maria MD; Mariana Barrios ? CLINICAL HISTORY: fall ? [...] DD/ 1540 ? TD/TT: 09/17/24 1540 ? Flight Test Mechanic: ? Procedure Note Avi, Image - 09/17/[address] [address] XRay Report Signed Patient: Josué Holloway#: [id number] 56 : 1970Acct:[id number] Age/Sex: 54 / FADM Date: 09/17/24 Loc: HO.ED Attending Dr: Ordering Physician: Mariana Barrios Date of Service: 09/17/24 Procedure(s): XR forearm LT 2V Accession Number(s): [id number] cc: Parag Maria MD; Mariana Barrios CLINICAL [...] OV> 09/17/24 1541 DD/ 1540 TD/TT: 09/17/24 1540 Flight Test Mechanic: [facility] External Provider IMG XR PROCEDURES Edited Result - Final * XR HAND WRIST LT (09/17/2024 3:12 PM EST) Anatomical Region Laterality Modality Abdomen Radiographic Maria Del Carmen ging 09/17/2024 3:12 PM EST Narrative 09/17/2024 3:13 PM EST ? [facility] ?[address] ?[place] [address] ?XRay Report ? Signed with Addenda ? Patient: Holloway,Annmarie ?MR#: [id number] ?? 56 ? : 1970 ?Acct:[id number] ? Age/Sex: 54 / F ?ADM Date: 02/16/25 ? Loc: HO.ED ? Attending Dr: ? Ordering Physician: Mariana Barrios ?? Date of Service: 09/17/24 ?? Procedure(s): XR hand wrist LT ?? Accession Number(s): [id number] ? cc: Name,Parag SHAH; Mariana Barrios ?ADDENDUM [...] DD/ 1512 ? TD/TT: 09/17/24 1512 ? Flight Test Mechanic: ? Procedure Note Avi, Quentin - 09/17/[address] [address] XRay Report Signed with Pineda Patient: Josué Holloway#: [id number] 56 : 1970Acct:[id number] Age/Sex: 54 / FADM Date: 09/17/24 Loc: HO.ED Attending Dr: Ordering Physician: Mariana Barrios Date of Service: 09/17/24 Procedure(s): XR hand wrist LT Accession Number(s): [id number] cc: Name,Parag SHAH; Mariana Barrios ADDENDUM This [...] Iban Barrett MD in OV> 09/17/241511 DD/ 11 TD/TT: 09/17/241511 Flight Test Mechanic: [facility] External Provider IMG XR PROCEDURES Edited Result - Final * (ABNORMAL) CBC auto differential (08/29/2024 12:00 PM EST) White Blood Count 6.2 4.8 - 10.8 X10*3/uL [facility] Red Blood Count 4.71 4.20 - 5.50 X10*6/uL [facility] Hemoglobin 14.4 12.0 - 16.0 g/dl [facility] Hematocrit 43.5 37.0 - 47.0 % [facility] Mean Corpuscular Volume 92.4 80.0 - 98.0 fL [facility] Mean Corpuscular Hemoglobin 30.6 27.0 - 33.0 pg [facility] Mean Corpuscular HGB Conc 33.1 31.0 - 35.0 g/dl [facility] Red Cell Distribution Width 13.0 11.0 - 16.0 % [facility] Platelet Count 131(L) 160 - 400 X10*3/uL [facility] Mean Platelet Volume 12.0 9.4 - 12.3 fL [facility] Neutrophils Percent Auto 58.5 45 - 73 % [facility] Imm Gran Pct Auto 0.3 0.0 - 0.4 % [facility] Lymphocytes Percent Auto 29.4 20 - 40 % [facility] Monocytes Percent Auto 8.0 2 - 11 % [facility] Eosinophils Percent Auto 2.7 0 - 4 % [facility] Basophils Percent Auto 1.1 0 - 2 % [facility] NRBC Pct Auto 0.0 0.0 - 0.2 /100WBC [facility] Neutrophils Absolute Auto 3.6 2.0 - 8.3 x10*3/uL [facility] Imm Gran Abs Auto 0.02 0.00 - 0.03 X10*3/uL [facility] Lymphocytes Absolute Auto 1.8 1.2 - 4.9 X10*3/uL [facility] Monocytes Absolute Auto 0.5 0.1 - 1.2 X10*3/uL [facility] Eosinophils Absolute Auto 0.2 0.0 - 0.4 X10*3/uL [facility] Basophils Absolute Auto 0.1 0.0 - 0.2 X10*3/uL [facility] NRBC Abs Auto 0.000 0.0 - 0.012 X10*3/uL [facility] Blood Venous blood specimen / Unknown 08/29/2024 12:00 PM EST 08/29/2024 1:22 PM EST us Parag Maria MD LAB BLOOD ORDERABLES Final Resul t Performing Organization Address [facility] Co de Phone Number [facility] [address] [place] [phone] * (ABNORMAL) Sed Rate by Modified Westergren (08/29/2024 12:00 PM EST) Erythrocyte Sedimentation Rate 23(H) 0 - 20 MM/HR [facility] Comment:Patients with polycy themia and many hemoglobin abnormalitiesmay have depressed sed rates whereas patients with anemiamay have elevated sed rates. Blood Venous blood specimen / Unknown 08/29/2024 12:00 PM EST 08/29/2024 1:22 PM EST us Parag Maria MD LAB BLOOD ORDERABLES Final Resul t Performing Organization Address [facility] Co de Phone Number [facility] [address] [place] [phone] * Rheumatoid Factor (08/29/2024 12:00 PM EST) Rheumatoid Factor <13.0 <15.0 IU/mL [facility] Blood Venous blood specimen / Unknown 08/29/2024 12:00 PM EST 08/29/2024 1:22 PM EST us Parag Maria MD LAB BLOOD ORDERABLES Final Resul t Performing Organization Address [facility] Co de Phone Number [facility] [address] [place] [phone] * C-reactive Protein (08/29/2024 12:00 PM EST) C Reactive Protein 0.32 < or = 0.50 mg/dL [facility] Blood Venous blood specimen / Unknown 08/29/2024 12:00 PM EST 08/29/2024 1:22 PM EST Parag Maria MD LAB BLOOD ORDERABLES Final Resul t [facility] [address] [place] [phone] [phone] * (ABNORMAL) JC Screen,IFA, with Reflex to Titer and Pattern (08/29/2024 12:00 PM EST) Anti Nuclear Antibody Screen POSITIVE (A) NEGATIVE [facility] Comment:JC IFA is a first l ine screen for detecting thepresence of up to approximately 150 autoantibodies invarious autoimmune diseases. A positive JC IFA resultis suggestive of autoimmune disease and reflexes totiter and pattern. Further laboratory testing may beconsidered if clinically indicated.For additional information, please refer tohttp://education.Stremor/faq/XTL045(This link is being provided for informational/educational purposes only.) JC Titer 1:160(A) titer [facility] Comment:Reference Range <1:4 0 Negative 1:40-1:80 Low Antibody Level >1:80 Elevated Antibody Level JC Pattern (A) [facility] Comment:Nuclear, Dense Fine Speckled Abnormal Flag: ADense fine speckled pattern is seen in normalindividuals and rarely associated with systemic lupuserythematosis (SLE), Sjogren's syndrome and systemicsclerosis.AC-2: Dense Fine SpeckledInternational Consensus on JC Patterns(https://doi.org/10.1515/dbhj-8813-7223)THIS TEST WAS PERFORMED AT:[facility] [place] [phone] FERRIS MD JC TITER 2 (REF LAB) [facility] JC Pattern 2 [facility] JC TITER 3 [facility] JC PATTERN 3 [facility] Blood Venous blood specimen / Unknown 08/29/2024 12:00 PM EST 08/29/2024 1:22 PM EST us Parag Maria MD LAB BLOOD ORDERABLES Final Resul t Performing Organization Address City/[facility]/ZIP Co de Phone Number [facility] [address] [place] [phone] [phone] * (ABNORMAL) Comprehensive Metabolic Panel (08/29/2024 12:00 PM EST) Sodium 143 135 - 145 mmol/L [facility] Potassium 4.5 3.3 - 5.1 mmol/L [facility] Chloride 109(H) 96 - 108 mmol/L [facility] Carbon Dioxide 28 22 - 29 mmol/L [facility] Anion Gap 11(L) 12 - 20 [facility] Urea Nitrogen (BUN) 12 9 - 16 mg/dL [facility] Creatinine, Serum 0.80 0.5 - 1.4 mg/dL [facility] Estimated Glomerular Filt Rate >60 [facility] Comment:Chronic Kidney Disea se: Estimated GFR < 60 mL/min/1.54a5Pyvfwd Kidney Disease: Estimated GFR < 15 mL/min/1.73m2 Glucose 103 60 - 115 mg/dL [facility] Calcium 8.9 8.4 - 10.2 mg/dL [facility] Bilirubin, Total 0.4 0.0 - 1.0 mg/dL [facility] Aspartate Amino Transferase 78(H) 5 - 31 U/L [facility] Alanine Aminotransferase 75(H) 0 - 31 U/L [facility] Total Protein 7.5 6.5 - 8.0 g/dL [facility] Albumin Level 3.9 3.5 - 5.0 g/dL [facility] Alkaline Phosphatase 116 39 - 117 U/L [facility] Blood Venous blood specimen / Unknown 08/29/2024 12:00 PM EST 08/29/2024 1:22 PM EST us Parag Maria MD LAB BLOOD ORDERABLES Final Resul t [facility] [address] [place] [address] [phone] * BI Mammogram Screening Tomosynthesis Bilateral (02/24/2024 2:00 PM EDT) Anatomical Region Laterality Modality Breast Bilateral Mammography 02/24/2024 2:00 PM EDT Narrative 03/15/2024 8:24 PM EDT ? [facility] ? [address] ?[place] [address] ? Mammography Report ? Signed with Addenda ? Patient: Holloway,Annmarie ?MR#: [id number] ?? 56 ? : 1970 ?Acct:[id number] ? Age/Sex: 53 / F ?ADM Date: 02/24/24 ? Loc: HO.MAMMO ? Attending Dr: Parag Name MD ? Ordering Physician: Name,Parag MD ?Results: 2Benign Fi ?? ndings ? Date of Service: 02/23/ ?Follow Up: 1 Year From Orig ?? inal Mammogram ? Procedure(s): MM tomosynthesis screening BI ?? Accession Number(s): [id number] ? cc: Name,Parag SHAH ?ADDENDUM ? ADDENDUM [...] with prior exams dating back to ?? 2018. ? TECHNIQUE: ?? Digital breast tomosynthesis is [...] 03/15/242019 ? DD/ 1400 ? TD/TT: ? Flight Test Mechanic: ? Procedure Note Avi, Image [facility] [address] [place] [address] Mammography Report Signed with Addjeannine Patient: Josué Holloway#: [id number] 56 : 1970Acct:[id number] Age/Sex: 53 / FADM Date: 02/24/24 Loc: HO.MAMMO Attending Dr: Parag Maria MD Ordering Physician: Parga Mariaesults: 2Benign Fi ndings Date of Service: 02/24/24Follow Up: 1 Year From Orig inal Mammogram Procedure(s): MM tomosynthesis screening BI Accession Number(s): [id number] cc: Parag Maria MD ADDENDUM ADDENDUM #1 [...] by: Alex Brush MD 06/27/2024 02:44 PM [facility] Addendum Dictated By: Alex Brush MD Addendum [...] Indira Adams MD in OV> 03/15/242019 DD/ 1400 TD/TT: Flight Test Mechanic: us Parag Maria MD IMG BI PROCEDURES Edited Result - Final * Hepatitis C Antibody with Reflex to HCV, RNA, Quantitative, Real-Time PCR (02/18/2024 9:02 AM EDT) Hepatitis C Antibody Nonreactive Nonreactive [facility] Comment:Antibodies to HCV no t detected; does not exclude early acuteHCV infection. Blood Venous blood specimen / Unknown 02/18/2024 9:02 AM EDT 02/18/2024 10:40 AM EDT us Parag Maria MD LAB BLOOD ORDERABLES Final Resul t [facility] [address] [place] [address] [phone] * HIV-1/2 Antigen and Antibodies, Fourth Generation, with Reflexes (02/18/2024 9:02 AM EDT) HIV AB/AG Nonreactive Nonreactive [facility] Comment:HIV-1 p24 Ag and/or HIV-1/HIV-2 Ab not detected.A test result that is nonreactive does not exclude thepossibility of exposure to or infection with HIV-1 and/orHIV-2. Nonreactive results in this assay for individualswith prior exposure to HIV-1 and/or HIV-2 may be due toantigen and antibody levels that are below the limit ofdetection of this assay.The [employer] HIV Ag/Ab Combo assay result andsupplemental assay results should be interpreted inconjunction with the patient's clinical presentation,history and other laboratory results. If the results areinconsistent with clinical evidence, additional testing issuggested to confirm the result. Blood Venous blood specimen / Unknown 02/18/2024 9:02 AM EDT 02/18/2024 10:40 AM EDT us Parag Name LAB BLOOD ORDERABLES Final Resul t [facility] [address] [place] [phone] * Lipid Panel, Standard (02/11/2024 8:27 AM EDT) Triglycerides 93 <150 mg/dL [facility] Comment:Desirable Triglyceri de: less than 150 mg/dLBorderline High Triglyceride 150-199 mg/dLHigh Triglyceride: 200-499 mg/dLVery High Triglyceride: greater than or equal to 5OO mg/dL Cholesterol 168 <200 mg/dL [facility] Comment:Desirable Cholestero l: less than 200 mg/dLBorderline High Cholesterol: 200-239 mg/dLHigh Cholesterol: greater than 239 mg/dL LDL Cholesterol Calculated 95 <100 mg/dL [facility] Comment:Desirable LDL: less than 100 mg/dLNear Optimal/Above Optimal LDL: 110- 129 mg/dLBorderline High LDL: 130-159 mg/dLHigh LDL: 160-189 mg/dLVery High LDL: greater than or equal to 190 mg/dL HDL Cholesterol 55 >40 mg/dL [facility] Comment:Desirable HDL: great er than 40 mg/dL Note: This HDL assay may give artificially low results in patients with liver disease. Blood Venous blood specimen / Unknown 02/11/2024 8:27 AM EDT 02/11/2024 11:06 AM EDT Parag Maria MD LAB BLOOD ORDERABLES Final Resul t [facility] [address] [place] [phone] from Last 3 Months or Most Recently Relevant to Health Maintenance Insurance [facility] [place] [id number] [place] [id number] [place] [id number] [place] [id number] Care Teams Program Manager Slp Relationship Specialty Start Date End Date Name, MD Parag [address] [place] [address] PCP - General Family Medicine 12/24/15
--- OUTSIDE RECORDS SUMMARY | 2024-09-17 19:07 | XMS_ITS | Encounter Summary ---
Author Organization [employer] Address [address] [place] [address] Care Team Providers Care Regulator Tester Name Role Phone Name, Parag SHAH Primary Care Provider [phone] Reason for Visit * Reason Onset Date [...] (Late st Contact Info) Description 02/28/2024 Refill [facility] [address] [place], [place] [phone] Name, MD Parag [address] [place], [place] [phone] Social History Tobacco Use Types Packs/Day Years [...] documented as of this encounter Care Teams Regulator Tester Relationship Specialty Start Date End Date Name, MD Parag [address] [place] [address] PCP - General Family Medicine 12/24/15 documented as of this encounter
--- OUTSIDE RECORDS SUMMARY | 2024-09-17 19:07 | XMS_ITS | Encounter Summary ---
Author Organization [employer] Address [address] [place] [address] Care Team Providers Care Funeral Attendant Name Role Phone Name, Parag SHAH Primary Care Provider [phone] Reason for Visit * Reason Comments Follow-up Encounter Details Date Type Department Care Team ([facility] st Contact Info) Description 08/23/2024 9:15 AM EST Telemedicine [facility] [address] [place] [phone] Name, MD Parag [address] [place] [address] Arthralgia, unspecified joint (Primary Dx); Healthcare maintenance [...] Physical Exam Vitals reviewed: Televisit audio only. [facility] [address] [place], [place] [address] Mammography Report Signed with Pineda Patient: Annmarie Holloway MR#: [id number] 56 : 1970 Acct:[id number] Age/Sex: 53 / F ADM Date: 02/24/24 Loc: HO.MAMMO Attending Dr: Parag Maria MD Ordering Physician: Parag Maria MD Results: 2Benign Nidhi ndings Date of Service: 02/24/24 Follow Up: 1 Year From Orig ina Mammogram Procedure(s): MM tomosynthesis screening BI Accession Number(s): [id number] cc: Name,Parag SHAH ADDENDUM ADDENDUM: Upon further [...] documented as of this encounter Care Teams Funeral Attendant Relationship Specialty Start Date End Date Name, MD Parag [address] [place] [address] PCP - General Family Medicine 12/24/15 documented as of this encounter
--- OUTSIDE RECORDS SUMMARY | 2024-09-17 19:07 | XMS_ITS | Encounter Summary ---
Author Organization [employer] Address [address] [facility] [address] [place] [address] Care Team Providers Care Principal Examiner Name Role Phone Name, Parag SHAH Primary Care Provider [phone] Reason for Visit * Reason Comments joint pain (generalized) Encounter Details Date Type Department Care Team ([facility] st Contact Info) Description 08/29/2024 11:15 AM EST Office Visit [facility] [address] [place], [place] [phone] Name, MD Parag [address] [place] [address] Arthralgia, unspecified joint (Primary Dx) Social History [...] on file documented as of this encounter Procedures Procedure Name Priority Date/Time Associated Diagnosis Comments CBC WITH AUTO DIFFERENTIAL Routine 08/29/2024 12:00 PM EST Arthralgia, unspecified joint SED RATE BY MODIFIED WESTERGREN Routine 08/29/2024 12:00 PM EST Arthralgia, unspecified joint RHEUMATOID FACTOR Routine 08/29/2024 12: 00 PM EST Arthralgia, unspecified joint C-REACTIVE PROTEIN Routine 08/29/2024 12 :00 PM EST Arthralgia, unspecified joint JC SCREEN, IFA, W/REFL TITER AND PATTERN Routine 08/29/2024 12:00 PM EST Arthralgia, unspecified joint COMPREHENSIVE METABOLIC PANEL Routine 08/29/2024 12:00 PM EST Arthralgia, unspecified joint documented in this encounter Results * (ABNORMAL) Comprehensive Metabolic Panel (08/29/2024 12:00 PM EST) Sodium 143 135 - 145 mmol/L [facility] Potassium 4.5 3.3 - 5.1 mmol/L [facility] Chloride 109(H) 96 - 108 mmol/L [facility] Carbon Dioxide 28 22 - 29 mmol/L [facility] Anion Gap 11(L) 12 - 20 [facility] Urea Nitrogen (BUN) 12 9 - 16 mg/dL [facility] Creatinine, Serum 0.80 0.5 - 1.4 mg/dL [facility] Estimated Glomerular Filt Rate >60 [facility] Comment:Chronic Kidney Disea se: Estimated GFR < 60 mL/min/[id number] Kidney Disease: Estimated GFR < 15 mL/min/1.73m2 Glucose 103 60 - 115 mg/dL [facility] Calcium 8.9 8.4 - 10.2 mg/dL [facility] Bilirubin, Total 0.4 0.0 - 1.0 mg/dL [facility] Aspartate Amino Transferase 78(H) 5 - 31 U/L [facility] Alanine Aminotransferase 75(H) 0 - 31 U/L [facility] Total Protein 7.5 6.5 - 8.0 g/dL [facility] Albumin Level 3.9 3.5 - 5.0 g/dL [facility] Alkaline Phosphatase 116 39 - 117 U/L [facility] Blood Venous blood specimen / Unknown 08/29/2024 12:00 PM EST 08/29/2024 1:22 PM EST us Parag Maria MD LAB BLOOD ORDERABLES Final Resul t [facility] [address] [place] [phone] * (ABNORMAL) CBC auto differential (08/29/2024 12:00 PM EST) White Blood Count 6.2 4.8 - 10.8 X10*3/uL [facility] Red Blood Count 4.71 4.20 - 5.50 X10*6/uL [facility] Hemoglobin 14.4 12.0 - 16.0 g/dl [facility] Hematocrit 43.5 37.0 - 47.0 % [facility] Mean Corpuscular Volume 92.4 80.0 - 98.0 fL [facility] Mean Corpuscular Hemoglobin 30.6 27.0 - 33.0 pg [facility] Mean Corpuscular HGB Conc 33.1 31.0 - 35.0 g/dl [facility] Red Cell Distribution Width 13.0 11.0 - 16.0 % [facility] Platelet Count 131(L) 160 - 400 X10*3/uL [facility] Mean Platelet Volume 12.0 9.4 - 12.3 fL [facility] Neutrophils Percent Auto 58.5 45 - 73 % [facility] Imm Gran Pct Auto 0.3 0.0 - 0.4 % [facility] Lymphocytes Percent Auto 29.4 20 - 40 % [facility] Monocytes Percent Auto 8.0 2 - 11 % [facility] Eosinophils Percent Auto 2.7 0 - 4 % [facility] Basophils Percent Auto 1.1 0 - 2 % [facility] NRBC Pct Auto 0.0 0.0 - 0.2 /100WBC [facility] Neutrophils Absolute Auto 3.6 2.0 - 8.3 x10*3/uL [facility] Imm Gran Abs Auto 0.02 0.00 - 0.03 X10*3/uL [facility] Lymphocytes Absolute Auto 1.8 1.2 - 4.9 X10*3/uL [facility] Monocytes Absolute Auto 0.5 0.1 - 1.2 X10*3/uL [facility] Eosinophils Absolute Auto 0.2 0.0 - 0.4 X10*3/uL [facility] Basophils Absolute Auto 0.1 0.0 - 0.2 X10*3/uL [facility] NRBC Abs Auto 0.000 0.0 - 0.012 X10*3/uL [facility] Blood Venous blood specimen / Unknown 08/29/2024 12:00 PM EST 08/29/2024 1:22 PM EST us Parag Maria MD LAB BLOOD ORDERABLES Final Resul t Performing Organization Address City/[facility]/ZIP Co de Phone Number [facility] [address] [place] [phone] * Rheumatoid Factor (08/29/2024 12:00 PM EST) Pathologist [facility] Rheumatoid Factor <13.0 <15.0 IU/mL [facility] Blood Venous blood specimen / Unknown 08/29/2024 12:00 PM EST 08/29/2024 1:22 PM EST us Parag Maria MD LAB BLOOD ORDERABLES Final Resul t Performing Organization Address [facility] Co de Phone Number [facility] [address] [place] [phone] * (ABNORMAL) JC Screen,IFA, with Reflex to Titer and Pattern (08/29/2024 12:00 PM EST) Anti Nuclear Antibody Screen POSITIVE (A) NEGATIVE [facility] Comment:JC IFA is a first l ine screen for detecting thepresence of up to approximately 150 autoantibodies invarious autoimmune diseases. A positive JC IFA resultis suggestive of autoimmune disease and reflexes totiter and pattern. Further laboratory testing may beconsidered if clinically indicated.For additional information, please refer tohttp://education.Cryoocyte/faq/UQZ854(This link is being provided for informational/educational purposes only.) JC Titer 1:160(A) titer [facility] Comment:Reference Range <1:4 0 Negative 1:40-1:80 Low Antibody Level >1:80 Elevated Antibody Level JC Pattern (A) [facility] Comment:Nuclear, Dense Fine Speckled Abnormal Flag: ADense fine speckled pattern is seen in normalindividuals and rarely associated with systemic lupuserythematosis (SLE), Sjogren's syndrome and systemicsclerosis.AC-2: Dense Fine SpeckledInternational Consensus on JC Patterns(https://doi.org/10.1515/bkhx-1530-0017)THIS TEST WAS PERFORMED AT:[facility] [place] [phone] FERRIS MD JC TITER 2 (REF LAB) [facility] JC Pattern 2 [facility] JC TITER 3 [facility] JC PATTERN 3 [facility] Blood Venous blood specimen / Unknown 08/29/2024 12:00 PM EST 08/29/2024 1:22 PM EST us Parag Maria MD LAB BLOOD ORDERABLES Final Resul t [facility] [address] [place] [phone] * (ABNORMAL) Sed Rate by Modified Padmini (08/29/2024 12:00 PM EST) Erythrocyte Sedimentation Rate 23(H) 0 - 20 MM/HR [facility] Comment:Patients with polycy themia and many hemoglobin abnormalitiesmay have depressed sed rates whereas patients with anemiamay have elevated sed rates. Blood Venous blood specimen / Unknown 08/29/2024 12:00 PM EST 08/29/2024 1:22 PM EST Parag Maria MD LAB BLOOD ORDERABLES Final Resul t Performing Organization Address [facility] Co de Phone Number [facility] [address] [place] [phone] * C-reactive Protein (08/29/2024 12:00 PM EST) C Reactive Protein 0.32 < or = 0.50 mg/dL [facility] Blood Venous blood specimen / Unknown 08/29/2024 12:00 PM EST 08/29/2024 1:22 PM EST us Parag Maria MD LAB BLOOD ORDERABLES Final Resul t Performing Organization Address [facility] Co de Phone Number [facility] [address] [place] [phone] documented in this encounter Visit Diagnoses Diagnosis Arthralgia, unspecified joint- Primary documented in this encounter Additional Health Concerns Assessment Noted Time PHQ-9 Depression Total Score: 0 02/17/20 24 11:11 AM EDT documented as of this encounter Care Teams Principal Examiner Relationship Specialty Start Date End Date Name, MD Parag [address] [place] [phone] PCP - General Family Medicine 12/24/15 documented as of this encounter
[2024-09-17 20:01] VITALS: BP 189/95; PULSE 102; RESP 16; TEMP 36.5; O2SAT 96
== END 2024-09-17 19:15 | disposition home or self-care (01) ==
PROVIDERS: Emergency Provider Emergency Medicine Emergency Medical Services; PCP Internal Medicine Geriatric Medicine
DX: S63.502A Unspecified sprain of left wrist, initial encounter (principal); M25.532 Pain in left wrist; M79.602 Pain in left arm; W00.0XXA Fall on same level due to ice and snow, initial encounter; Y93.9 Activity, unspecified; Y92.007 Garden or yard of unspecified non-institutional (private) residence as the place of occurrence of the external cause; Y99.9 Unspecified external cause status; Z79.899 Other long term (current) drug therapy
CPT/HCPCS: 29125; 73090; 73110; 73130; 73200; 99283; 99284

== ENCOUNTER → 2024-09-17 13:48 | Outpatient (BNV) | payer MEDICAID, SELFPAY | PROVIDERS: PCP Internal Medicine Geriatric Medicine; Visit Provider Nuclear Medicine | DX: M79.642 Pain in left hand (principal); M25.532 Pain in left wrist; M79.632 Pain in left forearm | CPT/HCPCS: 73090; 73110; 73130; 73200 ==

== ENCOUNTER 2024-12-03 18:23 | Emergency (ER) | payer MEDICAID, SELFPAY ==
--- NOTE | ~2024-12-03 | CT_ITS ---
CLINICAL HISTORY: right flank pain CT abdomen and pelvis without contrast Comparison: US/PA/SR - US ABDOMEN COMPLETE - 03/04/23 08:33 EDT Findings: No consolidation or effusion. The gallbladder is surgically absent. Small focus of low attenuation visualized within the liver adjacent to the gallbladder fossa, possibly consistent with focal fatty infiltration. There is some nodularity of the hepatic contour, which may be seen in the setting of cirrhosis. The spleen, pancreas, and bilateral adrenal glands are within normal limits for appearance. No radiopaque renal calculi. No hydronephrosis or hydroureter. 3 mm calcification identified near the expected location of the distal right ureter on axial image number 656 of series 4. No bowel obstruction, pneumoperitoneum, or pneumatosis. Fbvuhkvy-cr-buhai rectal stool burden. The uterus is surgically absent. The bladder is collapsed, limiting its evaluation. Normal appendix. The bones are intact. IMPRESSION: 3 mm calcification identified near the expected location of the distal right ureter as described above, possibly consistent with a phleboliths or nonobstructing distal right ureteral calculus. No hydronephrosis or hydroureter identified. Lndcyvrs-jj-quvbe rectal stool burden. No bowel obstruction. Mild nodularity of the hepatic contour, which may be seen in the setting of cirrhosis. This document has been electronically signed by: Kirk Davenport MD on 12/03/2024 22:29:49
[2024-12-03 18:27] VITALS: BP 131/104; PULSE 85; RESP 16; TEMP 36.9; O2SAT 98; BMI 33.5
--- NOTE | 2024-12-03 18:30 | ED_ITS ---
HPI - General Adult General Chief complaint: Back Pain/Injury Stated complaint: R hip pain Time Seen by Provider: 12/03/24 19:08 Source: patient Mode of arrival: ambulatory Limitations: no limitations History of Present Illness ED Provider: DR. Edwards HPI narrative: 54-year-old female came in for evaluation of right lower back pain radiates to the right buttock started 5 days ago while patient was taking a shower when she lift her right lower extremity felt something tear in her right buttock then started to have pain radiating from right lower back to the right buttock radiates to the front toward the right groin area, no dysuria, no frequency urination, no blood in the urine, normal bowel movement, normal passing flatus, no blood in stool or in the urine. patient was evaluated at a walk-in clinic 3 days later she was prescribed ibuprofen and heating pad but patient claimed there is no improvement. Related Data Home Medications ?Medication ?Instructions ?Recorded ?Confirmed cyclobenzaprine 10 mg tablet 10 mg PO BEDTIME 12/02/20 10/03/21 Previous Rx's ?Medication ?Instructions ?Recorded Levoxyl 100 mcg tablet 100 mcg PO DAILY #30 tabs 04/07/23 (levothyroxine) Allergies Allergy/AdvReac Type Severity Reaction Status Date / Time No Known Allergies Allergy Verified 12/03/24 18:27 [No Known Allergies*] Review of Systems 2 Review of Systems: All other systems are reviewed and are negative Constitutional: Reports as per HPI and Reports no additional constitutional complaints Eyes: Reports as per HPI and Reports no additional eye complaints Reports system reviewed and no additional complaints, except as documented Cardiovascular: Reports as per HPI and Reports no additional cardiovascular complaints Respiratory: Reports as per HPI and Reports no additional respiratory complaints Gastrointestinal: Reports as per HPI and Reports no additional gastrointestinal complaints Genitourinary: Reports no additional female genitourinary complaints Musculoskeletal: Reports no additional musculoskeletal complaints Skin/Breast: Reports system reviewed and no additional complaints, except as docu Psychiatric: Reports no additional psychiatric complaints Endocrine: Reports no additional endocrine complaints Hematologic/Lymphatic: Reports no additional hematologic/lymphatic complaints Allergic/Immunologic: Reports no additional allergic/immunologic complaints Reports system reviewed and no additional complaints, except as documented and Reports Abnormal speech [facility] Past Medical History Medical History Post-surgical hypothyroidism Primary thyroid cancer Surgical History Hx of total thyroidectomy Hx of cholecystectomy Hx of hysterectomy Family History Family History Father Alcoholic Mother Hypertension CVD (cardiovascular disease) Diabetes Social History Social History Alcohol intake: current Alcohol intake frequency: does not drink Patient Tobacco Use Status: Never used Tobacco Smoked in Last 30 Days: No Use of substances other than those prescribed or required for medical reasons: No Advance Directives: No Advance Directives Information Provided: Yes Patient : No Physical Exam ED Vital Signs: Vital Signs - 24 hr 12/03/24 18:27 12/03/24 20:07 Temperature 98.5 F 98.6 F Pulse Rate 85 58 Respiratory Rate 16 16 Blood Pressure 131/104 H 171/75 H Pulse Oximetry 98 99 Oxygen Delivery Method Room Air Room Air BMI result Body Mass Index 33.5 Vital signs have been reviewed and appear to be correct. Blood pressure elevated. Heart rate normal. Respiratory rate normal. Temperature normal. Oxygen saturation normal. Appearance: Alert. Oriented X3. No acute distress. Head: Normal external exam. Normocephalic. Atraumatic. No Casper signs noted. No raccoon eyes noted Eyes: PERRLA. EOMI. Conjunctiva and sclera normal. Eyelids normal. ENT: TM's Normal. Pharynx normal. Uvula midline. Moist mucous membranes. No trismus noted. No drooling noted. No muffled voice noted. Neck: Normal inspection. Neck supple. FROM. No adenopathy. Thyroid Normal. No meningeal signs. No neck mass noted. CVS: Normal heart rate and rhythm. Heart sound normal. No murmurs noted. Pulses normal throughout. Respiratory: No respiratory distress. Painless inspiration. Breath sounds normal. No wheezes/rales/rhonchi noted. Chest nontender. No accessory muscle usage noted or decreased air movement noted. Abdomen: Soft and nontender. Bowel sounds normal in all 4 quadrants. No distention noted. No organomegaly noted. No visible injury noted. Back: No CVA tenderness. Full range of motion noted. Skin: Skin warm and dry. Normal skin color. Normal skin turgor. No rashes/lesions/lacerations noted. Extremities: No lower extremity edema. Extremities exhibit normal range of motion. Extremities nontender. Neuro: Oriented X 3. Cranial nerve exam: II-XII are grossly intact No motor deficit. No sensory deficit. Reflexes normal. Course Course Course Narrative: This is an RME: Additional HPI, ROS, PE not included below will be deferred to primary provider. RME assessment and note performed by: Maxine Peres PA-C This is a 54-year-old female who presents emergency department with concerns for right sided back pain for the last week. Patient states that while she was in the shower she lifted her leg to wash her feet, and felt a pain developed suddenly in the right side of her back. She denies any urinary or bowel retention or incontinence. No urinary symptoms. Patient also reports that there was a linear rash on her right leg and believes that this may be associated to the injury. further ER eval needed Plan: labs, ua Reevaluation(s) Reevaluation #1: Right flank /right hip pain. CT is questioning 3 mm calcification near the location of distal right ureter, pain clinically is more with movement of the right hip, urine is clear, no sign of dysuria, frequency urination or hematuria. No signs of obstructing ureteric stone. Patient has been using ibuprofen with no problem. Time: 00:07 Medical Decision Making Differential Diagnosis Differential Diagnoses: The differential diagnosis associated with the presentation includes ( Acute appendicitis, kidney stone, UTI, acute appendicitis, acute colitis, acute diverticulitis.) Admission/Observation Consideration of admission/observation: Escalation of care including admission/observation considered Lab Data MDM Lab Attestation statement: I reviewed the patient's lab results. 12/03/24 18:44 12/03/24 18:44 Labs: Lab Results 12/03/24 12/03/24 Range/Units 18:44 23:36 WBC 9.1 (4.8-10.8) X10*3/uL RBC 5.07 (4.20-5.50) X10*6/uL Hgb 15.9 (12.0-16.0) g/dl Hct 45.1 (37.0-47.0) % MCV 89.0 (80.0-98.0) fL MCH 31.4 (27.0-33.0) pg MCHC 35.3 H (31.0-35.0) g/dl RDW 12.9 (11.0-16.0) % Plt Count 162 (160-400) X10*3/uL MPV 11.1 (9.4-12.3) fL Immature Gran % (Auto) 0.3 (0.0-0.4) % Neut % (Auto) 65.4 (45-73) % Lymph % (Auto) 24.5 (20-40) % Kay % (Auto) 8.0 (2-11) % Eos % (Auto) 0.8 (0-4) % Baso % (Auto) 1.0 (0-2) % Lymph # (Auto) 2.2 (1.2-4.9) X10*3/uL Kay # (Auto) 0.7 (0.1-1.2) X10*3/uL Eos # (Auto) 0.1 (0.0-0.4) X10*3/uL Baso # (Auto) 0.1 (0.0-0.2) X10*3/uL Abs Immat Gran (auto) 0.03 (0.00-0.03) X10*3/uL Absolute Neuts (auto) 6.0 (2.0-8.3) x10*3/uL Absolute Nucleated RBC 0.000 (0.0-0.012) X10*3/uL Nucleated RBC % (auto) 0.0 (0.0-0.2) /100WBC Sodium 142 (135-145) mmol/L Potassium 4.2 (3.3-5.1) mmol/L Chloride 106 (96-108) mmol/L Carbon Dioxide 27 (22-29) mmol/L Anion Gap 13 (12-20) BUN 16 (9-16) mg/dL Creatinine 0.86 (0.5-1.4) mg/dL Estim Creat Clear Calc 94.4 Estimated GFR > 60 Random Glucose 108 (60-115) mg/dL Calcium 9.2 (8.4-10.2) mg/dL Total Bilirubin 0.5 (0.0-1.0) mg/dL Direct Bilirubin 0.2 (0.0-0.5) mg/dL AST 57 H (5-31) U/L ALT 58 H (0-31) U/L Alkaline Phosphatase 107 (39-117) U/L Total Protein 7.5 (6.5-8.0) g/dL Albumin 4.1 (3.5-5.0) g/dL Urine Color Yellow Urine Appearance Clear Urine pH 5.5 (5.0-9.0) Ur Specific Greer >= 1.030 H (1.005-1.025) Urine Protein Trace (Neg-Trace) mg/dL Urine Glucose (UA) Negative (Negative) mg/dL Urine Ketones Trace (Negative) mg/dL Urine Blood Negative (Negative) Urine Nitrite Negative (Negative) Ur Leukocyte Esterase Negative (Negative) Independent Interpretation I performed an independent interpretation of an: CT Scan ( Abdomen and pelvis:3 mm calcification identified near the expected location of the distal right ureter as described above, possibly consistent with a phleboliths or nonobstructing distal right ureteral calculus. No hydronephrosis or hydroureter identified. Wvnijopr-[id number]-penfj rectal stool burden) Radiology Impression Discussion of test interpretation with radiology: I have reviewed the radiologist's reading. Discharge Plan Discharge Clinical Impression: Strain of lumbar region Patient Disposition: Home, Self-Care Instructions: Muscle Strain (ED) Prescriptions: No Action levothyroxine [Levoxyl] 100 mcg tablet 100 mcg PO DAILY Qty: 30 5RF cyclobenzaprine 10 mg tablet 10 mg PO BEDTIME Referrals: Name,MD Parag [Primary Care Provider] - Print Language: Setswana
[2024-12-03 18:48] LABS: MANUAL DIFF FLAG NO
[2024-12-03 18:54] LABS: Basophils Absolute Auto 0.1 X10*3/uL (0.0-0.2); Eosinophils Absolute Auto 0.1 X10*3/uL (0.0-0.4); Eosinophils Percent Auto 0.8 % (0-4); Hematocrit 45.1 % (37.0-47.0); Hemoglobin 15.9 g/dl (12.0-16.0); Imm Gran Abs Auto 0.03 X10*3/uL (0.00-0.03); Imm Gran Pct Auto 0.3 % (0.0-0.4); Lymphocytes Absolute Auto 2.2 X10*3/uL (1.2-4.9); Lymphocytes Percent Auto 24.5 % (20-40); Mean Corpuscular HGB Conc 35.3 g/dl (31.0-35.0); Mean Corpuscular Hemoglobin 31.4 pg (27.0-33.0); Mean Platelet Volume 11.1 fL (9.4-12.3); Monocytes Absolute Auto 0.7 X10*3/uL (0.1-1.2); Neutrophils Percent Auto 65.4 % (45-73); Platelet Count 162 X10*3/uL (160-400); Red Blood Count 5.07 X10*6/uL (4.20-5.50); Red Cell Distribution Width 12.9 % (11.0-16.0); White Blood Count 9.1 X10*3/uL (4.8-10.8)
[2024-12-03 19:11] LABS: Alanine Aminotransferase 58 U/L (0-31); Albumin Level 4.1 g/dL (3.5-5.0); Alkaline Phosphatase 107 U/L (39-117); Anion Gap 13 (12-20); Aspartate Amino Transferase 57 U/L (5-31); Bilirubin Direct 0.2 mg/dL (0.0-0.5); Bilirubin Total 0.5 mg/dL (0.0-1.0); Blood Urea Nitrogen 16 mg/dL (9-16); Calcium 9.2 mg/dL (8.4-10.2); Carbon Dioxide 27 mmol/L (22-29); Chloride 106 mmol/L (96-108); Creatinine Clr Calc Pharmacy 94.4; Estimated Glomerular Filt Rate > 60; Glucose Random 108 mg/dL (60-115); Potassium 4.2 mmol/L (3.3-5.1); Sodium 142 mmol/L (135-145); Total Protein 7.5 g/dL (6.5-8.0)
[2024-12-03 20:07] VITALS: BP 171/75; PULSE 58; RESP 16; TEMP 37; O2SAT 99
[2024-12-03 23:42] LABS: Appearance Urine Clear; Color Urine Yellow; Glucose Urine UA Negative (Negative); Leukocyte Esterase Urine Negative (Negative); Nitrite Urine Negative (Negative); PH 5.5 (5.0-9.0); Specific Gravity - Urine >= 1.030 (1.005-1.025); Urine Blood Negative (Negative); Urine Ketones Trace mg/dL (Negative); Urine Protein Trace mg/dL (Neg-Trace)
[2024-12-04 00:12] VITALS: BP 130/77; PULSE 54; RESP 16; TEMP 36.8; O2SAT 96
[2024-12-04 00:23] VITALS: BP 130/77; PULSE 54; RESP 16; TEMP 36.8; O2SAT 96
== END 2024-12-04 00:24 | disposition home or self-care (01) ==
PROVIDERS: Physician Assistant Medical; Emergency Provider Emergency Medicine; PCP Internal Medicine Geriatric Medicine
DX: R10.2 Pelvic and perineal pain (principal); M54.50 Low back pain, unspecified; Z79.899 Other long term (current) drug therapy
CPT/HCPCS: 36415; 74176; 80048; 80076; 81003; 85025; 99284

== ENCOUNTER → 2024-12-03 21:28 | Outpatient (BNV) | payer MEDICAID, SELFPAY | PROVIDERS: Emergency Provider Emergency Medicine; PCP Internal Medicine Geriatric Medicine; Visit Provider Radiology Diagnostic Radiology | DX: K56.41 Fecal impaction (principal) | CPT/HCPCS: 74176 ==

== ENCOUNTER 2024-12-20 14:52 | Outpatient (AMB) | payer MEDICAID, SELFPAY ==
--- OUTSIDE RECORDS SUMMARY | 2024-12-20 14:59 | XMS_ITS | Clinical Summary ---
Author Organization [employer] Address [address] [place] [address] 7[address] [place] [address] Care Team Providers Care Document Reviewer Name Role Phone Name, Parag SHAH Primary Care Provider [phone] Allergies No known active allergies Medications Levoxyl 100 MCG tablet Take 1 tablet (100 mcg) by mouth before breakfast. 90 tablet 3 4 03/01/20 25 Active cyclobenzaprine (Flexeril) 10 MG tabletIndication s:Acute right-sided low back pain without sciatica,Lumbar radiculopathy, right TAKE 1 TABLET BY MOUTH THREE TIMES A DAY 90 tablet 5 Active cyclobenzaprine (Flexeril) 10 MG tabletIndication s:Chronic low back pain without sciatica, unspecified back pain laterality TAKE 1 TABLET BY MOUTH THREE TIMES A DAY 90 tablet 4 12/13/19 25 Discontinue d(Therapy completed) ibuprofen 800 MG tabletIndication s:Acute right-sided low back pain without sciatica Take 1 tablet (800 mg) by mouth every 6 (six) hours if needed for mild pain for up to 10 days. 30 tablet 5 12/07/19 25 Discontinue d(Ineffecti ve) predniSONE (Deltasone) 20 MG tablet Take 2 tablets (40 mg) by mouth Once per day for 3 days, THEN 1 tablet (20 mg) Once per day for 3 days, THEN 0.5 tablets (10 mg) Once per day for 4 days. 11 tablet 5 12/17/19 25 Active Problems Problem Noted Date Diagnosed Date Acute right-sided low back pain without sciatica 12/01/2024 Assessment & Plan (12/01/2024 4:14 PM EDT): Advised applied heat on affected area Advised for her to start taking her Flexeril 10 mg every 8 hours she is aware of side effects somnolence I prescribed for patient ibuprofen 800 mg every 8 hours with full stomach Continue to use pain patches Hx of papillary thyroid carcinoma 11/04/2023 Overview (11/04/2023): Diagnosed with Thyroid cancer stage 1 , (T 1b, N 0, M 0) size 1.5 x 1.3 x 0.8 cm clear margins, no lymphovascular invasion, no extrathyroidal extension. She was treated with surgery (04/25/14) by , BARNHART (104.8 mCi) 07/16/14, post ablation scan 07/24/14 uptake only in neck and submandibular glands. 03/27/16 WBS at [facility] residual iodine uptake in neck . there [...] nodule 03/26/2014 11/04/2023 Chronic hypotension 11/16/2013 11/04/19 Pain in the coccyx 11/16/2013 Encounters Date Type Department Care Team Description 12/12/2024 3:30 PM EDT Office Visit [facility] [address] [place] [phone] Parag Maria MD Fatty liver (Primary Dx); Acute right-sided low back pain without sciatica; Lumbar radiculopathy, right 12/12/2024 Travel 12/11/2024 Telephone [facility] [address] [place] [phone] Parag Maria MD CHART PREP 12/06/2024 3:40 PM EDT Office Visit [facility] [address] [place] [phone] Parag Maria MD Lumbar radiculopathy, right (Primary Dx) 12/06/[address] [address] Parag Maria MD ER Follow-up; Nurse Triage 12/03/2024 Orders Only GENERIC EXTERNAL DATA DEPARTMENT Provider, Generic External Data 12/01/2024 2:30 PM EDT Office Visit [facility] [address] [place] [phone] Chiara Patrick MD Acute right-sided low back pain without sciatica (Primary Dx) 12/01/2024 Travel 12/01/2024 Telephone [facility] [address] [place] [phone] Parag Maria MD Nurse Triage 10/13/2024 Population Health Risk Score [facility] Department [address] [facility] [address] [place] [address] Provider, Population Health Generic 09/22/2024 Telephone [facility] [address] [place] [address] Laxmi Cadet [place] october recalls from Last 3 Months Immunizations Immunization Administration Dates Next Due Hep A, Adult [...] Answer Date Recorded Patient Health Questionnaire-2 Score 2 12/12/2024 Internet Access Answer Date Recorded Internet Access Q1 Yes 12/12/2024 Internet Access Q2 I do not want or need it 11/30 Comments Unknown Sex and Gender Information Value Date Recorded Sex Assigned at Female 06/01/2022 10:14 AM EDT Legal Sex Female 10:14 AM EDT Gender Identity Female 06/01/2022 10:14 AM EDT Sexual Orientation Straight 06/01/2022 10 :14 AM EDT Last Filed Vital Signs Vital Sign Reading Time Taken Comments Blood Pressure 121/79 12/12/2024 3:10 PM EDT Pulse 72 12/12/2024 3:10 PM EDT Temperature 36.1 ??C (96.9 ??F) 12/12/2024 3:10 PM ED T Respiratory Rate 12 12/12/2024 3:10 PM EDT Oxygen Saturation 98% 12/12/2024 3:10 PM EDT Inhaled Oxygen Concentration - - Weight 103 kg (228 lb) 12/12/2024 3:10 PM EDT Height 175.3 cm (5' 9 ) 12/12/2024 3:10 PM EDT Body Mass Index 33.67 12/12/2024 3:10 PM EDT Plan of Treatment Health Maintenance Due Date [...] of 1 - PCV) 2019 COVID-19 Vaccine ( - season) 2024 07/02/2021, 10/29/2020, 10/01/2020 Influenza Vaccine (#1) 2024 05/17/2018, 2016 SDOH Screening 02/16/2025 02/17/2024 Alcohol/Substance Use Screening 12/12/2025 12/12/2024 Depression Screening 12/12/2025 12/12/2024, 02/17/20 24 Disability Screening 12/12/2025 12/12/2024 Tobacco Screening 12/12/2025 12/12/2024 Mammogram 02/23/2026 02/24/2024, 11/01, 02/26/2021, Additional history exists Lipid Panel 02/10/2029 02/11/2024, 09/2021, 01/29/2021, Additional history exists DTaP/Tdap/Td Vaccines (3 [...] patient's age to complete this topic Meningococcal B Vaccine Aged Out No l onger eligible based on patient's age to complete [...] Procedure Name Priority Date/Time Associated Diagnosis Comments URINALYSIS WITH REFLEX MICROSCOPIC Routine 12/03/2024 11:[address] ABDOMEN PELVIS WO CONTRAST Routine 12/03/2024 10:29 PM EDT BASIC METABOLIC PANEL Routine 12/03/2024 6:44 PM EDT HEPATIC FUNCTION PANEL Routine 12/03/2024 6:44 PM EDT CBC WITH AUTO DIFFERENTIAL Routine 12/03/2024 6:44 PM EDT BI MAMMOGRAM SCREENING TOMOSYNTHESIS BILATERAL Routine 02/24/2024 [...] Recently Relevant to Health Maintenance Results * (ABNORMAL) Urinalysis w/reflex microscopic (12/03/2024 11:36 PM EDT) Color Urine Yellow [facility] Appearance Urine Clear [facility] PH 5.5 5.0 - 9.0 [facility] Glucose Urine UA Negative Negative mg/dL [facility] Urine Blood Negative Negative [facility] Specific [place] - Urine >=1.030(H) 1.005 - 1.025 [facility] Urine Protein Trace Neg-Trace mg/dL [facility] Urine Ketones Trace Negative mg/dL [facility] Nitrite Urine Negative Negative [facility] Leukocyte Esterase Urine Negative Negative [facility] 12/03/2024 11:3 6 PM EDT 12/03/2024 11:39 PM EDT Narrative [facility] - 12/03/2024 11:44 PM EDT Urine, Clean Catch us Generic External Data Provider LAB URINE ORDERAB LES Final Result [facility] [address] [place] [address] [phone] * CT Abdomen Pelvis w/o Contrast (12/03/2024 10:29 PM EDT) Anatomical Region Laterality Modality Body, Pelvis, Abdomen Computed T omography 12/03/2024 10:2 9 PM EDT Narrative 12/03/2024 10:31 PM EDT ? [facility] ?[address] ?[place] [address] ? CT Scan Report ? Signed ? Patient: Annmarie Holloway ?MR#: [id number] ?? 56 ? : 1970 ?Acct:[id number] ? Age/Sex: 54 / F ?ADM Date: 12/03/24 ? Loc: HO.ED ? Attending Dr: ? Ordering Physician: Darwin Edwards MD ?? Date of Service: 12/03/24 ?? Procedure(s): CT abdomen pelvis wo IV con ?? Accession Number(s): [id number] ? cc: Darwin Edwards MD; Name,Parag SHAH ? Report Number: ?? [id number]: Total DLP = ??819.00 mGy-cm ? CLINICAL HISTORY: right flank pain ? CT abdomen and pelvis without contrast ? Comparison: US/MS/SR - US ABDOMEN COMPLETE - 03/04/23 08:33 EDT ? Findings: ?? No consolidation or effusion. ? The gallbladder is surgically absent. Small focus of low attenuation ?? visualized within the liver adjacent to the gallbladder fossa, possibly ?? consistent with focal fatty infiltration. There is some nodularity of the ?? hepatic contour, which may be seen in the setting of cirrhosis. The ?? spleen, pancreas, and bilateral adrenal glands are within normal limits ?? for appearance. No radiopaque renal calculi. No hydronephrosis or ?? hydroureter. 3 mm calcification identified near the expected location of ?? the distal right ureter on axial image number 656 of series 4. ?? No bowel obstruction, pneumoperitoneum, or pneumatosis. Edfkwqfo-jb-elcxp ?? rectal stool burden. ? The uterus is surgically absent. The bladder is collapsed, limiting its ?? evaluation. Normal appendix. ?? The bones are intact. ? IMPRESSION: ?? 3 mm calcification identified near the expected location of the distal ?? right ureter as described above, possibly consistent with a phleboliths or ?? nonobstructing distal right ureteral calculus. No hydronephrosis or ?? hydroureter identified. ? Aiagougl-uj-rijng rectal stool burden. No bowel obstruction. ? Mild nodularity of the hepatic contour, which may be seen in the setting ?? of cirrhosis. ? This document has been electronically signed by: Kirk Davenport MD on ?? 12/03/2024 22:29:49 ? Dictated By: ?Kirk Davenport MD ? Signed By: ?<Electronically signed by Kirk Davenport MD in OV> ? 12/03/240 ? DD/ 28 ? TD/TT: 12/03/242228 ? Divorce Lawyer: ? Procedure Note Avi, Image - 12/03/[address] [place] [address] [address] Scan Report Signed Patient: Josué Holloway#: [id number] 56 : 1970Acct:[id number] Age/Sex: 54 / FADM Date: 12/03/24 Loc: .ED Attending Dr: Ordering Physician: Darwin Edwards MD Date of Service: 12/03/24 Procedure(s): CT abdomen pelvis wo IV con Accession Number(s): [id number] cc: aDrwin Edwards MD; Name,Parag SHAH Report Number: [id number]: Total DLP = 819.00 mGy-cm CLINICAL HISTORY: right flank pain CT abdomen and pelvis without contrast Comparison: US/MS/SR - US ABDOMEN COMPLETE - 03/04/23 08:33 EDT Findings: No consolidation or effusion. The gallbladder is surgically absent. Small focus of low attenuation visualized within the liver adjacent to the gallbladder fossa, possibly consistent with focal fatty infiltration. There is some nodularity of the hepatic contour, which may be seen in the setting of cirrhosis. The spleen, pancreas, and bilateral adrenal glands are within normal limits for appearance. No radiopaque renal calculi. No hydronephrosis or hydroureter. 3 mm calcification identified near the expected location of the distal right ureter on axial image number 656 of series 4. No bowel obstruction, pneumoperitoneum, or pneumatosis. Uylbzcxv-so-jtsrp rectal stool burden. The uterus is surgically absent. The bladder is collapsed, limiting its evaluation. Normal appendix. The bones are intact. IMPRESSION: 3 mm calcification identified near the expected location of the distal right ureter as described above, possibly consistent with a phleboliths or nonobstructing distal right ureteral calculus. No hydronephrosis or hydroureter identified. Ieqdajez-rv-kxnlh rectal stool burden. No bowel obstruction. Mild nodularity of the hepatic contour, which may be seen in the setting of cirrhosis. This document has been electronically signed by: Kirk Davenport MD on 12/03/2024 22:29:49 Dictated By: Kirk Davenport MD Signed By: <Electronically signed by Kirk Davenport MD in OV> 12/03/242229 DD/ 28 TD/TT: 12/03/242228 Divorce Lawyer: [facility] External Provider IMG CT PROCEDURES Edited Result - Final * (ABNORMAL) CBC auto differential (12/03/2024 6:44 PM EDT) White Blood Count 9.1 4.8 - 10.8 X10*3/uL [facility] Red Blood Count 5.07 4.20 - 5.50 X10*6/uL [facility] Hemoglobin 15.9 12.0 - 16.0 g/dl [facility] Hematocrit 45.1 37.0 - 47.0 % [facility] Mean Corpuscular Volume 89.0 80.0 - 98.0 fL [facility] Mean Corpuscular Hemoglobin 31.4 27.0 - 33.0 pg [facility] Mean Corpuscular HGB Conc 35.3(H) 31.0 - 35.0 g/dl [facility] Red Cell Distribution Width 12.9 11.0 - 16.0 % [facility] Platelet Count 162 160 - 400 X10*3/uL [facility] Mean Platelet Volume 11.1 9.4 - 12.3 fL [facility] Neutrophils Percent Auto 65.4 45 - 73 % [facility] Imm Gran Pct Auto 0.3 0.0 - 0.4 % [facility] Lymphocytes Percent Auto 24.5 20 - 40 % [facility] Monocytes Percent Auto 8.0 2 - 11 % [facility] Eosinophils Percent Auto 0.8 0 - 4 % [facility] Basophils Percent Auto 1.0 0 - 2 % [facility] NRBC Pct Auto 0.0 0.0 - 0.2 /100WBC [facility] Neutrophils Absolute Auto 6.0 2.0 - 8.3 x10*3/uL [facility] Imm Gran Abs Auto 0.03 0.00 - 0.03 X10*3/uL [facility] Lymphocytes Absolute Auto 2.2 1.2 - 4.9 X10*3/uL [facility] Monocytes Absolute Auto 0.7 0.1 - 1.2 X10*3/uL [facility] Eosinophils Absolute Auto 0.1 0.0 - 0.4 X10*3/uL [facility] Basophils Absolute Auto 0.1 0.0 - 0.2 X10*3/uL [facility] NRBC Abs Auto 0.000 0.0 - 0.012 X10*3/uL [facility] 12/03/2024 6:44 PM EDT 12/03/2024 6:46 PM EDT us Generic External Data Provider LAB BLOOD ORDERAB LES Final Result [facility] [address] [place], [place] [phone] * (ABNORMAL) Hepatic Function Panel (12/03/2024 6:44 PM EDT) Bilirubin, Total 0.5 0.0 - 1.0 mg/dL [facility] Bilirubin, Direct 0.2 0.0 - 0.5 mg/dL [facility] Aspartate Amino Transferase 57(H) 5 - 31 U/L [facility] Alanine Aminotransferase 58(H) 0 - 31 U/L [facility] Total Protein 7.5 6.5 - 8.0 g/dL [facility] Albumin Level 4.1 3.5 - 5.0 g/dL [facility] Alkaline Phosphatase 107 39 - 117 U/L [facility] 12/03/2024 6:44 PM EDT 12/03/2024 6:46 PM EDT us Generic External Data Provider LAB BLOOD ORDERAB LES Final Result [facility] [address] [place] [address] [phone] * Basic Metabolic Panel (12/03/2024 6:44 PM EDT) Sodium 142 135 - 145 mmol/L [facility] Potassium 4.2 3.3 - 5.1 mmol/L [facility] Chloride 106 96 - 108 mmol/L [facility] Carbon Dioxide 27 22 - 29 mmol/L [facility] Anion Gap 13 12 - 20 [facility] Urea Nitrogen (BUN) 16 9 - 16 mg/dL [facility] Creatinine, Serum 0.86 0.5 - 1.4 mg/dL [facility] Creatinine Clr Calc Pharmacy 94.4 [facility] Comment:Provided height and weight: 175.26 cm,102.9 kg.eGFR (calculated from the MDRD study equation) and eCrCl(calculated from the Cockcroft-Gault equation) are based ondifferent parameters and may not yield comparable results.If eCrCl result is absurd, please check patient'sheight/weight. Estimated Glomerular Filt Rate >60 [facility] Comment:Chronic Kidney Disea se: Estimated GFR < 60 mL/min/1.83u6Knloqv Kidney Disease: Estimated GFR < 15 mL/min/1.73m2 Glucose 108 60 - 115 mg/dL [facility] Calcium 9.2 8.4 - 10.2 mg/dL [facility] 12/03/2024 6:44 PM EDT 12/03/2024 6:46 PM EDT us Generic External Data Provider LAB BLOOD ORDERAB LES Final Result [facility] [address] [place] [address] [phone] * BI Mammogram Screening Tomosynthesis Bilateral (02/24/2024 2:00 PM EDT) Anatomical Region Laterality Modality Breast Bilateral Mammography 02/24/2024 2:00 PM EDT Narrative 03/15/2024 8:24 PM EDT ? [facility] [place] ? [address] ?[place] [address] ? Mammography Report ? Signed with Addenda ? Patient: Holloway,Annmarie ?MR#: [id number] ?? 56 ? : 1970 ?Acct:[id number] ? Age/Sex: 53 / F ?ADM Date: 02/23/ ? Loc: HO.MAMMO ? Attending Dr: Parag Name MD ? Ordering Physician: Name,Parag MD ?Results: 2Benign Fi ?? ndings ? Date of Service: 02/23/ ?Follow Up: 1 Year From Orig ?? inal Mammogram ? Procedure(s): MM tomosynthesis screening BI ?? Accession Number(s): [id number] ? cc: Name,Parag SHAH ?ADDENDUM ? ADDENDUM [...] 03/15/242019 ? DD/ 1400 ? TD/TT: ? Divorce Lawyer: ? Procedure Note Donotjessyinterpreter, Image - 06/27/2024 [facility] [address] [place], [place] [address] Mammography Report Signed with Pineda Patient: Josué Holloway#: [id number] 56 : 1970Acct:[id number] Age/Sex: 53 / FADM Date: 02/24/24 Loc: HO.MAMMO Attending Dr: Parag Maria MD Ordering Physician: Parag Maria MDResults: 2Benign Fi ndings Date of Service: 02/24/24Follow Up: 1 Year From Orig ina Mammogram Procedure(s): MM tomosynthesis screening BI Accession Number(s): [id number] cc: Parag Maria MD ADDENDUM ADDENDUM #1 [...] MD in OV> 03/15/242019 DD/ 99 TD/TT: Divorce Lawyer: Parag Name [facility] BI PROCEDURES Edited Result - Final * Hepatitis C Antibody with Reflex to HCV, RNA, Quantitative, Real-Time PCR (02/18/2024 9:02 AM EDT) Hepatitis C Antibody Nonreactive Nonreactive [facility] Comment:Antibodies to HCV no t detected; does not exclude early acuteHCV infection. Blood Venous blood specimen / Unknown 02/18/2024 9:02 AM EDT 02/18/2024 10:40 AM EDT us Parag Maria MD LAB BLOOD ORDERABLES Final Resul t Performing Organization Address City/[facility]/ZIP Co de Phone Number [facility] [address] [place] [phone] * HIV-1/2 Antigen and Antibodies, Fourth Generation, with Reflexes (02/18/2024 9:02 AM EDT) HIV AB/AG Nonreactive Nonreactive [facility] Comment:HIV-1 p24 Ag and/or HIV-1/HIV-2 Ab not detected.A test result that is nonreactive does not exclude thepossibility of exposure to or infection with HIV-1 and/orHIV-2. Nonreactive results in this assay for individualswith prior exposure to HIV-1 and/or HIV-2 may be due toantigen and antibody levels that are below the limit ofdetection of this assay.The [employer] HIV Ag/Ab Combo assay result andsupplemental assay results should be interpreted inconjunction with the patient's clinical presentation,history and other laboratory results. If the results areinconsistent with clinical evidence, additional testing issuggested to confirm the result. Blood Venous blood specimen / Unknown 02/18/2024 9:02 AM EDT 02/18/2024 10:40 AM EDT us Parag Maria MD LAB BLOOD ORDERABLES Final Resul t Performing Organization Address City/[facility]/ZIP Co de Phone Number [facility] [address] [place] [phone] * Lipid Panel, Standard (02/11/2024 8:27 AM EDT) Triglycerides 93 <150 mg/dL [facility] Comment:Desirable Triglyceri de: less than 150 mg/dLBorderline High Triglyceride 150-199 mg/dLHigh Triglyceride: 200-499 mg/dLVery High Triglyceride: greater than or equal to 5OO mg/dL Cholesterol 168 <200 mg/dL [facility] Comment:Desirable Cholestero l: less than 200 mg/dLBorderline High Cholesterol: 200-239 mg/dLHigh Cholesterol: greater than 239 mg/dL LDL Cholesterol Calculated 95 <100 mg/dL [facility] Comment:Desirable LDL: less than 100 mg/dLNear Optimal/Above Optimal LDL: 110- 129 mg/dLBorderline High LDL: 130-159 mg/dLHigh LDL: 160-189 mg/dLVery High LDL: greater than or equal to 190 mg/dL HDL Cholesterol 55 >40 mg/dL [facility] Comment:Desirable HDL: great er than 40 mg/dL Note: This HDL assay may give artificially low results in patients with liver disease. Blood Venous blood specimen / Unknown 02/11/2024 8:27 AM EDT 02/11/2024 11:06 AM EDT us Parag Maria MD LAB BLOOD ORDERABLES Final Resul t [facility] [address] [place] [phone] [phone] from Last 3 Months or Most Recently Relevant to Health Maintenance Insurance [facility] C3 Care Teams Document Reviewer Relationship Specialty Start Date End Date Name, MD Parag [address] [place] [address] PCP - General Family Medicine 12/24/15
--- OUTSIDE RECORDS SUMMARY | 2024-12-20 15:00 | XMS_ITS | Encounter Summary ---
Author Organization [employer] Address [address] [facility] [address]t [place] [address] Care Team Providers Care Final Installer Inspector Name Role Phone Name, Parag SHAH Primary Care Provider [phone] Reason for Visit * Reason Comments Med Change Request Encounter Details Date Type Department Care Team ([facility] st Contact Info) Description 03/01/2024 Refill [facility] [address] [place], [place] [phone] Name, MD Parag [address] [place] [address] Social History Tobacco Use Types Packs/Day Years [...] documented as of this encounter Care Teams Final Installer Inspector Relationship Specialty Start Date End Date Name, MD Parag [address] [place] [phone] PCP - General Family Medicine 12/24/15 documented as of this encounter
--- OUTSIDE RECORDS SUMMARY | 2024-12-20 15:00 | XMS_ITS | Encounter Summary ---
Author Organization [employer] Address [address] [facility] [address] [place] [address] Care Team Providers Care Fancy Needleworker Name Role Phone Name, Parag SHAH Primary Care Provider Reason for Visit * Reason Onset Date [...] (Late st Contact Info) Description 02/28/2024 Refill [facility] [address] [place], [place] [phone] Name, MD Parag [address] [place], [place] [phone] Social History Tobacco Use Types Packs/Day Years [...] documented as of this encounter Care Teams Fancy Needleworker Relationship Specialty Start Date End Date Name, MD Parag [address] [place] [address] PCP - General Family Medicine 12/24/15 documented as of this encounter
--- NOTE | 2024-12-20 15:19 | A.OFFVIS_ITS ---
Vital Signs 12/20/24 15:24 Height 5 ft 9 in Weight 225 lb BMI 33.2 BP 104/66 Blood Pressure Location Rt brachial Position Sitting Pulse 84 Pulse Source Pulse Oximeter Pulse Oximetry (%) 97 Oxygen Delivery Method Room Air Intake Visit Reasons: colo screening Intake Note: NEW PATIENT for initial colo screening. Pt has hx of thyroid carcinoma. CC; Pt denies any GI sx or concerns at this time. Pt denies any pertinent FMHx. Pt denies any previous hx of adverse reaction to anesthesia. Spanish Translator Required: No Accompanied by: Self / Same As Patient Allergies No Known Allergies [No Known Allergies*] Allergy (Verified 12/20/24 15:23) HPI HPI colo screening: Details: 54 year old? female with past medical history of thyroid cancer currently on levothyroxine is here today for pre colonoscopy screening.? Patient was sent to us by her PCP.? ? Patient denies any gastrointestinal symptoms in the past or at present.? Denies any personal or family history of gastrointestinal disease, colon polyps, or CRC.? Denies history of difficulty with sedation or anesthesia in the past.? Negative for history of sleep apnea.? Denies any history of cardiac, renal, pulmonary, or hepatic disease.?? No history of infectious? diseases like hepatitis A, B, C, HIV or tuberculosis.? Patient is not on any anticoagulation. Patient had elevated liver enzymes and is sent by her PCP for liver ultrasound with elastography. Patient reports family history of liver cirrhosis, patient's mom and her brother PFSH Medical History (Updated 12/20/24 @ 21:04 by Daniela Mon, [facility]) Family history of cirrhosis of liver Transaminitis Post-surgical hypothyroidism Primary thyroid cancer Surgical History Hx of total thyroidectomy Hx of cholecystectomy Hx of hysterectomy Family History Father Alcoholic Mother Hypertension CVD (cardiovascular disease) Diabetes Social History Alcohol intake: current Alcohol intake frequency: does not drink Patient Tobacco Use Status: Never used Tobacco Review of Systems Const Denies weight gain and Denies weight loss ENT Reports no additional complaints, Denies dysphagia and Denies odynophagia Card Reports no additional complaints Resp Reports no additional complaints GI Denies abdominal pain, Denies belching, Denies melena, Denies bloating, Denies change in bowel habits, Denies dysphagia, Denies excessive flatus, Denies dys pepsia, Denies heartburn, Denies diarrhea, Denies loose stools, Denies nausea, Denies odynophagia and Denies vomiting Musc Reports no additional complaints Neuro Reports no additional complaints Psych Reports no additional complaints Endo Reports no additional complaints Physical Exam Vital Signs: Last Vital Signs Pulse 84 12/20/24 15:24 BP 104/66 12/20/24 15:24 Pulse Ox 97 12/20/24 15:24 Oxygen Delivery Method Room Air 12/20/24 15:24 BMI result Body Mass Index 33.2 Const General: healthy appearing and no acute distress Nutritional Appearance: well nourished and obese Orientation/consciousness: patient oriented x3 Resp Effort & Inspection: normal respiratory effort, able to speak in complete sentences, no tracheal deviation and symmetric chest movement Auscultation: clear to auscultation bilaterally Cardio Rate: regular rate GI Inspection: Yes normal to inspection, No distended and Yes obesity Palpation (GI): Soft to palpation, not firm, nontender and No hepatosplenomegaly present Auscultation: normal bowel sounds General: Yes no CVA tenderness Back/Spine/Pelvis Back: no CVA tenderness Skin General skin exam: elasticity normal, turgor normal and dry skin Neuro General: patient oriented x3 Psych Appearance: grossly normal Mental Status: mental status grossly normal Assessment & Plan Assessment & Plan (1) Screen for colon cancer: Code(s): Z12.11 - Encounter for screening for malignant neoplasm of colon (2) Transaminitis: Code(s): R74.01 - Elevation of levels of liver transaminase levels Category: Medical (3) Family history of cirrhosis of liver: Code(s): Z83.79 - Family history of other diseases of the digestive system Category: Medical Plan Patient denies any GI, cardiac or respiratory symptoms.? Denies any issues with anesthesia in the past.? Denies any history of sleep apnea.? No history infectious diseases in the past or present.? Not on any anticoagulation therapy.? No family or personal history of colon cancer or polyps.? Patient denies melena, hematochezia, unintentional weight loss or ribbon like stools.? Discussed at length the pre-procedure,? prep, diet & medications as well as what to expect prior, during and after the procedure.?? Stressed the importance of good bowel prep.? Recommended the use of Vaseline or Calmoseptine OTC & baby wipes with bowel movements to promote comfort.? Patient is going for ultrasound that was not scheduled yet. Will try to help patient to get the appointment for ultrasound. Patient would like to be seen to discuss ultrasound results as well as discuss further fatty liver and her options for diet. ?Discussed with patient fatty liver disease and diet that is recommended. List of food recommended given to patient. She will return in 2 months to discuss her results and might need to order additional blood work. Patient verbalizes understanding and agrees to plan of care.? She was given the opportunity to ask questions and all questions answered.? Thank you for allowing me to participate in her care Medications: New bisacodyl (Dulcolax (bisacodyl)) take 4 tabs at noon the day before your colonoscopy 20 mg (4 x 5 mg) PO ONCE 4 tabs 0RF constipation 1 day Z12.11 - Encounter for screening for malignant neoplasm of colon polyethylene glycol 3350 (Miralax) As directed by gastroenterology department at [facility] 238 grams PO ONCE 238 grams 0RF Z12.11 - Encounter for screening for malignant neoplasm of colon Coding Level of Care Code New Pt Level 4 (67334) Diagnoses Screen for colon cancer Z12.11 Transaminitis R74.01 Family history of cirrhosis of liver Z83.79 Time Spent (min) 45 Comment 35 minute spent with patient and additional 10 minutes spent reviewing her records
[2024-12-20 15:24] VITALS: BP 104/66; PULSE 84; O2SAT 97; BMI 33.2
== END 2024-12-20 16:03 | disposition home or self-care (01) ==
LOC: HO.HGI 14:53
PROVIDERS: PCP Internal Medicine Geriatric Medicine; Visit Provider Nurse Practitioner Family
DX: Z01.818 Encounter for other preprocedural examination (principal); Z12.11 Encounter for screening for malignant neoplasm of colon; R74.01 Elevation of levels of liver transaminase levels; Z83.79 Family history of other diseases of the digestive system
CPT/HCPCS: 99204

== ENCOUNTER → 2024-12-20 14:52 | Outpatient (BNVA) | payer MEDICAID, SELFPAY | PROVIDERS: PCP Internal Medicine Geriatric Medicine; Visit Provider Nurse Practitioner Family | DX: Z01.818 Encounter for other preprocedural examination (principal); R74.01 Elevation of levels of liver transaminase levels; Z83.79 Family history of other diseases of the digestive system | CPT/HCPCS: 99212 ==

== ENCOUNTER 2025-02-13 07:40 | Outpatient (REF) | payer MEDICAID, SELFPAY ==
--- NOTE | ~2025-02-13 | US_ITS ---
EXAMINATION: US ABDOMEN LIMITED WITH LIVER ELASTOGRAPHY HISTORY: fatty liver, possible cirrhosis on CT scan TECHNIQUE: Real-time grayscale ultrasound imaging of the right upper quadrant was performed and images were reviewed. COMPARISON: Comparison is made with the prior examination dated 03/04/2023. FINDINGS: Liver: The right lobe of the liver measures 14.2 cm in size. The left lobe of the liver measures 11.4 cm in size. The liver demonstrates increased echotexture, consistent with steatosis. Again seen is a 1.6 x 3.4 x 1.0 cm septated cyst in the right lobe. No intrahepatic biliary ductal dilatation is identified. There is normal hepatopedal flow in the portal vein. Ultrasound elastography of the liver was performed with 10 separate measurements of the liver parenchyma with the patient in the supine position. Measurements were obtained approximately 2 cm below Donovan's capsule and perpendicular to the capsule. The median shear wave velocity is 1.54 m/s. The interquartile range/median (IQR/median) is 0.16. Gallbladder and biliary tree: The gallbladder is surgically absent. The common bile duct is measures 9 mm diameter without change. Right Kidney: The right kidney measures 11.1 cm in length. The right kidney is unremarkable, without evidence of masses, hydronephrosis, or calculi. Pancreas: The pancreatic head, neck, and body are unremarkable. The pancreatic tail is obscured by bowel gas. Abdominal aorta and inferior vena cava: The visualized portions of the abdominal aorta and inferior vena cava are normal in caliber. There is no free fluid in the right upper quadrant. US/US abdomen dos santos w elastography IMPRESSION: Hepatic steatosis. 1.6 x 3.4 x 1.0 cm septated cyst in the right lobe. The median shear wave velocity in the liver is 1.54 m/s, corresponding to a median liver stiffness of 7.26 kPa. The IQR/median value is 0.16. This is indicative of a poor quality data set, and the estimated liver stiffness may be unreliable. Findings are indicative of a low elastography value which rules out advanced chronic liver disease in asymptomatic patients. REFERENCE: Society of Radiologists in Ultrasound Liver Stiffness Thresholds (2020): LIVER STIFFNESS THRESHOLDS: *Shear wave velocity less than 1.3 m/s (Liver Stiffness equal or less than 5 kPa): High probability of being normal. *Shear wave velocity less than 1.7 m/s (Liver Stiffness less than 9 kPa): In the absence of other known clinical signs, rules out compensated advanced chronic liver disease. *Shear wave velocity between 1.7-2.1 m/s (Liver Stiffness 9-13 kPa): Suggestive of compensated advanced chronic liver disease but need further test for confirmation. *Shear wave velocity between 2.1-2.4 m/s (Liver Stiffness 13-17 kPa): Rules in compensated advanced chronic liver disease. *Shear wave velocity greater than 2.4 m/s (Liver Stiffness over 17 kPa): Suggestive of clinically significant portal hypertension. QUALITY OF DATA SET: *IQR/Median value equal or less than 0.15 implies a quality data set. *IQR/Median value over 0.15 implies a poor quality data set. SIGNIFICANT CHANGE FROM PRIOR EXAM: Significant change if liver stiffness measurement is 10% or greater from prior exam. OTHER CONSIDERATIONS: The stage of liver fibrosis may be overestimated in the setting of acute hepatitis, liver inflammation, elevated liver function tests, hepatic vascular congestion, obstructive cholestasis, non-fasting state, and infiltrative diseases such as amyloidosis and lymphoma. In some patients with NAFLD, the liver stiffness thresholds for compensated advanced chronic liver disease may be lower. In causes other than viral hepatitis and NAFLD, liver stiffness thresholds are not well established. Electronically signed by: Arpit Parra MD 02/13/2025 09:08 AM EDT
--- OUTSIDE RECORDS SUMMARY | 2025-02-13 07:43 | XMS_ITS | Clinical Summary ---
Author Organization [employer] Address [address] [place] [address] [address] [place] [address] Care Team Providers Care Installation Service Representative Name Role Phone Name, Parag SHAH Primary Care Provider [phone] Allergies No known active allergies Medications Levoxyl 100 MCG tablet Take 1 tablet (100 mcg) by mouth before breakfast. 90 tablet 3 4 03/01/20 25 Active cyclobenzaprine (Flexeril) 10 MG tabletIndicatio ns:Acute right-sided low back pain without sciatica,Lumbar radiculopathy, right TAKE 1 TABLET BY MOUTH THREE TIMES A DAY 90 tablet 5 Active cyclobenzaprine (Flexeril) 10 MG tabletIndicatio ns:Acute right-sided low back pain without sciatica,Lumbar radiculopathy, right TAKE 1 TABLET BY MOUTH THREE TIMES A DAY 90 tablet 5 02/07/20 25 Discontinued Active Problems Problem Noted Date Diagnosed Date [...] Encounters Date Type Department Care Team Description 02/06/2025 Refill [facility] [address] [facility] [place] [address] Divine Cárdenas NP Acute right-sided low back pain without sciatica; Lumbar radiculopathy, right 01/09/2025 Refill [facility] [address] [facility] [place] [address] Parag Maria MD Acute right-sided low back pain without sciatica; Lumbar radiculopathy, right 01/04/2025 Telephone [facility] [address] [place] [address] Laxmi Cadet [place] august recalls 12/12/2024 3:30 PM EDT Office Visit [address] [address] Parag Maria MD Fatty liver (Primary Dx); Acute right-sided low back pain without sciatica; Lumbar radiculopathy, right 12/12/2024 Travel 12/11/2024 Telephone [facility] MEDICINE [address] [place] [phone] Parag Maria MD CHART PREP 12/06/2024 3:40 PM EDT Office Visit [facility] [address] [place] [address] Parag Maria MD Lumbar radiculopathy, right (Primary Dx) 12/06/[address] [address] Parag Maria MD ER Follow-up; Nurse Triage 12/03/2024 Orders Only GENERIC EXTERNAL DATA DEPARTMENT Provider, Generic External Data 12/01/2024 2:30 PM EDT Office Visit [address] [address] Chiara Patrick MD Acute right-sided low back pain without sciatica (Primary Dx) 12/01/2024 Travel 12/01/[address] [address] Ebony Mariaas, MD Nurse Triage from Last 3 Months Immunizations Immunization Administration [...] 72 12/12/2024 3:10 PM EDT Temperature 36.1 C (96.9 F) 12/12/2024 3:10 PM EDT Respiratory Rate 12 12/12/2024 3:10 PM EDT Oxygen Saturation 98% 12/12/2024 3:10 PM EDT Inhaled Oxygen Concentration - - Weight 103 kg (228 lb) 12/12/2024 3:10 PM EDT Height 175.3 cm (5' 9 ) 12/12/2024 3:10 PM EDT Body Mass Index 33.67 12/12/2024 3:10 PM EDT Plan of Treatment Upcoming Encounters Date Type Department Care Team (Late st Contact Info) Description 04/24/2025 1:00 PM EDT Office Visit [facility] [address] [place] [phone] Name, MD Parag [address] [place] [address] Health Maintenance Due Date Last Done Comments [...] ( - season) 2024 07/02/2021, 10/29/2020, 10/01/2020 SDOH Screening 02/16/2025 02/17/2024 Influenza Vaccine (#1) 2025 05/17/2018, 2016 Alcohol/Substance Use Screening 12/12/2025 12/12/2024 Depression Screening 12/12/2025 12/12/2024, 02/17/20 24 Disability Screening 12/12/2025 12/12/2024 Tobacco Screening 12/12/2025 12/12/2024 Mammogram 02/23/2026 02/24/2024, 04/2 , 02/26/2021, Additional [...] (12/03/2024 11:36 PM EDT) Color Urine Yellow [facility] Appearance Urine Clear [facility] PH 5.5 5.0 - 9.0 [facility] Glucose Urine UA Negative Negative mg/dL [facility] Urine Blood Negative Negative [facility] Specific [place] - Urine >=1.030(H) 1.005 - 1.025 [facility] Urine Protein Trace Neg-Trace mg/dL [facility] Urine Ketones Trace Negative mg/dL [facility] Nitrite Urine Negative Negative [facility] Leukocyte Esterase Urine Negative Negative [facility] 12/03/2024 11:3 6 PM EDT 12/03/2024 11:39 PM EDT Narrative [facility] - 12/03/2024 11:44 PM EDT Urine, Clean Catch us Generic External Data Provider LAB URINE ORDERAB LES Final Result [facility] [address] [place] [phone] * CT Abdomen Pelvis w/o Contrast (12/03/2024 10:29 PM EDT) Anatomical Region Laterality Modality Body, Pelvis, Abdomen Computed T omography 12/03/2024 10:2 9 PM EDT Narrative 12/03/2024 10:31 PM EDT [address] [address] [address] Scan Report Signed Patient: Annmarie Holloway MR#: [id number] 56 : 1970 Acct:[id number] Age/Sex: 54 / F ADM Date: 12/03/24 Loc: HO.ED Attending Dr: Ordering Physician: Darwin Edwards MD Date of Service: 12/03/24 Procedure(s): CT abdomen pelvis wo IV con Accession Number(s): [id number] cc: Darwin Edwards MD; Name,Parag SHAH Report Number: [id number]: Total DLP = 819.00 mGy-cm CLINICAL HISTORY: right flank pain CT abdomen and pelvis without contrast Comparison: US/IN/SR - US ABDOMEN COMPLETE - 03/04/23 08:33 [...] 4. No bowel obstruction, pneumoperitoneum, or pneumatosis. Adlqnkwl-id-pdgud rectal stool burden. The uterus is surgically absent. The bladder is collapsed, limiting its evaluation. Normal appendix. The bones are intact. IMPRESSION: 3 mm calcification identified near the expected location of the distal right ureter as described above, possibly consistent with a phleboliths or nonobstructing distal right ureteral calculus. No hydronephrosis or hydroureter identified. Zhwjvxgy-cg-mnjnp rectal stool burden. No bowel obstruction. Mild nodularity of the hepatic contour, which may be seen in the setting of cirrhosis. This document has been electronically signed by: Kirk Davenport MD on 12/03/2024 22:29:49 Dictated By: Kirk Davenport MD Signed By: <Electronically signed by Kirk Davenport MD in OV> 12/03/242229 DD/ 28 TD/TT: 12/03/242228 Sales Account Manager: Procedure Note Donotuseinterpreter, Image - 12/03/[address] [place] [address] [address] Scan Report Signed Patient: oJsué Holloway#: [id number] 56 : 1970Acct:[id number] Age/Sex: 54 / FADM Date: 12/03/24 Loc: HO.ED Attending Dr: Ordering Physician: Darwin Edwards MD Date of Service: 12/03/24 Procedure(s): CT abdomen pelvis wo IV con Accession Number(s): [id number] cc: Darwin Edwards MD; Name,Parag SHAH Report Number: [id number]: Total DLP = 819.00 mGy-cm CLINICAL HISTORY: right flank pain CT abdomen and pelvis without contrast Comparison: US/IN/SR - US ABDOMEN COMPLETE - 03/04/23 08:33 [...] 4. No bowel obstruction, pneumoperitoneum, or pneumatosis. Bajkpxxo-wt-luukx rectal stool burden. The uterus is surgically absent. The bladder is collapsed, limiting its evaluation. Normal appendix. The bones are intact. IMPRESSION: 3 mm calcification identified near the expected location of the distal right ureter as described above, possibly consistent with a phleboliths or nonobstructing distal right ureteral calculus. No hydronephrosis or hydroureter identified. Mociuylm-wn-wdtak rectal stool burden. No bowel obstruction. Mild nodularity of the hepatic contour, which may be seen in the setting of cirrhosis. This document has been electronically signed by: Kirk Davenport MD on 12/03/2024 22:29:49 Dictated By: Kirk Davenport MD Signed By: <Electronically signed by Kirk Davenport MD in OV> 12/03/242229 DD/ 28 TD/TT: 12/03/242228 Sales Account Manager: [facility] External Provider IMG CT PROCEDURES Edited Result - Final * (ABNORMAL) CBC auto differential (12/03/2024 6:44 PM EDT) White Blood Count 9.1 4.8 - 10.8 X10*3/uL [facility] Red Blood Count 5.07 4.20 - 5.50 X10*6/uL [facility] Hemoglobin 15.9 12.0 - 16.0 g/dl [facility] Hematocrit 45.1 37.0 - 47.0 % [facility] Mean Corpuscular Volume 89.0 80.0 - 98.0 fL [facility] Mean Corpuscular Hemoglobin 31.4 27.0 - 33.0 pg [facility] Mean Corpuscular HGB Conc 35.3(H) 31.0 - 35.0 g/dl [facility] Red Cell Distribution Width 12.9 11.0 - 16.0 % [facility] Platelet Count 162 160 - 400 X10*3/uL [facility] Mean Platelet Volume 11.1 9.4 - 12.3 fL [facility] Neutrophils Percent Auto 65.4 45 - 73 % [facility] Imm Gran Pct Auto 0.3 0.0 - 0.4 % [facility] Lymphocytes Percent Auto 24.5 20 - 40 % [facility] Monocytes Percent Auto 8.0 2 - 11 % [facility] Eosinophils Percent Auto 0.8 0 - 4 % [facility] Basophils Percent Auto 1.0 0 - 2 % [facility] NRBC Pct Auto 0.0 0.0 - 0.2 /100WBC [facility] Neutrophils Absolute Auto 6.0 2.0 - 8.3 x10*3/uL [facility] Imm Gran Abs Auto 0.03 0.00 - 0.03 X10*3/uL [facility] Lymphocytes Absolute Auto 2.2 1.2 - 4.9 X10*3/uL [facility] Monocytes Absolute Auto 0.7 0.1 - 1.2 X10*3/uL [facility] Eosinophils Absolute Auto 0.1 0.0 - 0.4 X10*3/uL [facility] Basophils Absolute Auto 0.1 0.0 - 0.2 X10*3/uL [facility] NRBC Abs Auto 0.000 0.0 - 0.012 X10*3/uL [facility] 12/03/2024 6:44 PM EDT 12/03/2024 6:46 PM EDT us Generic External Data Provider LAB BLOOD ORDERAB LES Final Result [facility] [address] [place] [phone] * (ABNORMAL) Hepatic Function Panel (12/03/2024 6:44 PM EDT) Bilirubin, Total 0.5 0.0 - 1.0 mg/dL [facility] Bilirubin, Direct 0.2 0.0 - 0.5 mg/dL [facility] Aspartate Amino Transferase 57(H) 5 - 31 U/L [facility] Alanine Aminotransferase 58(H) 0 - 31 U/L [facility] Total Protein 7.5 6.5 - 8.0 g/dL [facility] Albumin Level 4.1 3.5 - 5.0 g/dL [facility] Alkaline Phosphatase 107 39 - 117 U/L [facility] 12/03/2024 6:44 PM EDT 12/03/2024 6:46 PM EDT us Generic External Data Provider LAB BLOOD ORDERAB LES Final Result [facility] [address] [place] [address] [phone] * Basic Metabolic Panel (12/03/2024 6:44 PM EDT) Sodium 142 135 - 145 mmol/L [facility] Potassium 4.2 3.3 - 5.1 mmol/L [facility] Chloride 106 96 - 108 mmol/L [facility] Carbon Dioxide 27 22 - 29 mmol/L [facility] Anion Gap 13 12 - 20 [facility] Urea Nitrogen (BUN) 16 9 - 16 mg/dL [facility] Creatinine, Serum 0.86 0.5 - 1.4 mg/dL [facility] Creatinine Clr Calc Pharmacy 94.4 [facility] Comment:Provided height and weight: 175.26 cm,102.9 kg.eGFR (calculated from the MDRD study equation) and eCrCl(calculated from the Cockcroft-Gault equation) are based ondifferent parameters and may not yield comparable results.If eCrCl result is absurd, please check patient'sheight/weight. Estimated Glomerular Filt Rate >60 [facility] Comment:Chronic Kidney Disea se: Estimated GFR < 60 mL/min/1.77m4Ecuncp Kidney Disease: Estimated GFR < 15 mL/min/1.73m2 Glucose 108 60 - 115 mg/dL [facility] Calcium 9.2 8.4 - 10.2 mg/dL [facility] 12/03/2024 6:44 PM EDT 12/03/2024 6:46 PM EDT us Generic External Data Provider LAB BLOOD ORDERAB LES Final Result [facility] [address] [place] [address] [phone] * BI Mammogram Screening Tomosynthesis Bilateral (02/24/2024 2:00 PM EDT) Anatomical Region Laterality Modality Breast Bilateral Mammography 02/24/2024 2:00 PM EDT Narrative 03/15/2024 8:24 PM EDT [facility] [address] [place] [address] Mammography Report Signed with Addenda Patient: Annmarie Holloway MR#: [id number] 56 : 1970 Acct:[id number] Age/Sex: 53 / F ADM Date: 02/24/24 Loc: HO.MAMMO Attending Dr: Parag Maria MD Ordering Physician: Parag Maria MD Results: 2Benign Fi ndings Date of Service: 02/24/24 Follow Up: 1 Year From Orig ina Mammogram Procedure(s): MM tomosynthesis screening BI Accession Number(s): [id number] cc: Parag Maria MD ADDENDUM ADDENDUM #1 [...] MD in OV> 03/15/242019 DD/ 1400 TD/TT: Sales Account Manager: Procedure Note Donotuseinterpreter, Image - 06/27/2024 [facility] [address] [place], [place] [address] Mammography Report Signed with Addenda Patient: Josué Holloway#: [id number] 56 : 1970Acct:[id number] Age/Sex: 53 / FADM Date: 02/24/24 Loc: AMADA Attending Dr: Parag Maria MD Ordering Physician: Parag Maria MDResults: 2Benign Fi ndings Date of Service: 02/24/24Follow Up: 1 Year From Orig inal Mammogram Procedure(s): MM tomosynthesis screening BI Accession Number(s): [id number] cc: Parag Maria MD ADDENDUM ADDENDUM #1 [...] MD in OV> 03/15/242019 DD/ 1400 TD/TT: Sales Account Manager: us Parag Maria MD IMG BI PROCEDURES Edited Result - Final * Hepatitis C Antibody with Reflex to HCV, RNA, Quantitative, Real-Time PCR (02/18/2024 9:02 AM EDT) Hepatitis C Antibody Nonreactive Nonreactive [facility] Comment:Antibodies to HCV no t detected; does not exclude early acuteHCV infection. Blood Venous blood specimen / Unknown 02/18/2024 9:02 AM EDT 02/18/2024 10:40 AM EDT us Parag Maria MD LAB BLOOD ORDERABLES Final Resul t [facility] [address] [place] [phone] * HIV-1/2 Antigen and Antibodies, Fourth Generation, with Reflexes (02/18/2024 9:02 AM EDT) HIV AB/AG Nonreactive Nonreactive [facility] Comment:HIV-1 p24 Ag and/or HIV-1/HIV-2 Ab not detected.A test result that is nonreactive does not exclude thepossibility of exposure to or infection with HIV-1 and/orHIV-2. Nonreactive results in this assay for individualswith prior exposure to HIV-1 and/or HIV-2 may be due toantigen and antibody levels that are below the limit ofdetection of this assay.The [employer] HIV Ag/Ab Combo assay result andsupplemental assay results should be interpreted inconjunction with the patient's clinical presentation,history and other laboratory results. If the results areinconsistent with clinical evidence, additional testing issuggested to confirm the result. Blood Venous blood specimen / Unknown 02/18/2024 9:02 AM EDT 02/18/2024 10:40 AM EDT Parag Maria MD LAB BLOOD ORDERABLES Final Resul t Performing Organization Address [facility] Co de Phone Number [facility] [address] [place] [address] [phone] * Lipid Panel, Standard (02/11/2024 8:27 AM EDT) Triglycerides 93 <150 mg/dL [facility] Comment:Desirable Triglyceri de: less than 150 mg/dLBorderline High Triglyceride 150-199 mg/dLHigh Triglyceride: 200-499 mg/dLVery High Triglyceride: greater than or equal to 5OO mg/dL Cholesterol 168 <200 mg/dL [facility] Comment:Desirable Cholestero l: less than 200 mg/dLBorderline High Cholesterol: 200-239 mg/dLHigh Cholesterol: greater than 239 mg/dL LDL Cholesterol Calculated 95 <100 mg/dL [facility] Comment:Desirable LDL: less than 100 mg/dLNear Optimal/Above Optimal LDL: 110- 129 mg/dLBorderline High LDL: 130-159 mg/dLHigh LDL: 160-189 mg/dLVery High LDL: greater than or equal to 190 mg/dL HDL Cholesterol 55 >40 mg/dL [facility] Comment:Desirable HDL: great er than 40 mg/dL Note: This HDL assay may give artificially low results in patients with liver disease. Blood Venous blood specimen / Unknown 02/11/2024 8:27 AM EDT 02/11/2024 11:06 AM EDT Parag Maria MD LAB BLOOD ORDERABLES Final Resul t Performing Organization Address [facility] Co de Phone Number [facility] [address] [place] [address] [phone] from Last 3 Months or Most Recently Relevant to Health Maintenance Insurance [facility] C3 Care Teams Installation Service Representative Relationship Specialty Start Date End Date Name, MD Parag [address] [place] [address] PCP - General Family Medicine 12/24/15
== END 2025-02-13 07:41 | disposition home or self-care (01) ==
LOC: HO.US 07:40
PROVIDERS: PCP Internal Medicine Geriatric Medicine; Visit Provider Internal Medicine Geriatric Medicine
DX: K76.0 Fatty (change of) liver, not elsewhere classified (principal)
CPT/HCPCS: 76705; 76981

== ENCOUNTER → 2025-02-13 07:42 | Outpatient (BNV) | payer MEDICAID, SELFPAY | PROVIDERS: PCP Internal Medicine Geriatric Medicine; Visit Provider Radiology Diagnostic Radiology | DX: K76.0 Fatty (change of) liver, not elsewhere classified (principal); K76.89 Other specified diseases of liver | CPT/HCPCS: 76705 ==

== ENCOUNTER 2025-03-07 15:19 | Outpatient (AMB) | payer MEDICAID, SELFPAY ==
--- NOTE | 2025-03-07 15:22 | A.OFFVIS_ITS ---
Vital Signs 03/07/25 15:27 Height 5 ft 9 in Weight 227 lb BMI 33.5 BP 118/66 Blood Pressure Location Rt brachial Position Sitting Pulse 64 Pulse Source Pulse Oximeter Pulse Oximetry (%) 94 Oxygen Delivery Method Room Air Intake Visit Reasons: f/u liver us Intake Note: Est pt for mgmt of abn labs + colo screening. Review US results. CC: Pt denies any changes or new sx since last visit. Supervisor Transcribing Operators Required: No Accompanied by: Self / Same As Patient Allergies No Known Allergies (No Known Allergies*) Allergy (Verified 03/07/25 15:23) HPI HPI f/u liver us: Details: LAST VISIT: Screen for colon cancer Transaminitis Family history of cirrhosis of liver Plan Patient denies any GI, cardiac or respiratory symptoms.? Denies any issues with anesthesia in the past.? Denies any history of sleep apnea.? No history infectious diseases in the past or present.? Not on any anticoagulation therapy.? No family or personal history of colon cancer or polyps.? Patient denies melena, hematochezia, unintentional weight loss or ribbon like stools.? Discussed at length the pre-procedure,? prep, diet & medications as well as what to expect prior, during and after the procedure.?? Stressed the importance of good bowel prep.? Recommended the use of Vaseline or Calmoseptine OTC & baby wipes with bowel movements to promote comfort.? Patient is going for ultrasound that was not scheduled yet. Will try to help patient to get the appointment for ultrasound. Patient would like to be seen to discuss ultrasound results as well as discuss further fatty liver and her options for diet. ?Discussed with patient fatty liver disease and diet that is recommended. List of food recommended given to patient. She will return in 2 months to discuss her results and might need to order additional blood work. Patient verbalizes understanding and agrees to plan of care.? She was given the opportunity to ask questions and all questions answered.? ? Thank you for allowing me to participate in her care New bisacodyl (Dulcolax (bisacodyl)) take 4 tabs at noon the day before your colonoscopy 20 mg (4 x 5 mg) PO ONCE 4 tabs 0RF constipation 1 day Z12.11 polyethylene glycol 3350 (Miralax) As directed by gastroenterology department at [facility] 238 grams PO ONCE 238 grams 0RF Z12.11 TODAY'S VISIT Patient is here today for follow-up and to discuss lab results and ultrasound results. Patient reports that she has been feeling well. Denies any abdominal pain or discomfort. Patient admits eating fast food or food that it is fried or greasy. Liver enzymes continue to be elevated. Liver elastography rules out chronic advanced liver disease. Patient is to go for colonoscopy and was not scheduled yet. Patient reports that she has the prep at home and understands and verbalizes the instructions. Patient denies any GI concerning symptoms. [facility] Medical History Family history of cirrhosis of liver Transaminitis Post-surgical hypothyroidism Primary thyroid cancer Surgical History Hx of total thyroidectomy Hx of cholecystectomy Hx of hysterectomy Family History Father Alcoholic Mother Hypertension CVD (cardiovascular disease) Diabetes Social History Alcohol intake: current Alcohol intake frequency: does not drink Patient Tobacco Use Status: Never used Tobacco Review of Systems Const Denies weight gain and Denies weight loss ENT Reports no additional complaints, Denies dysphagia and Denies odynophagia Card Reports no additional complaints Resp Reports no additional complaints GI Denies abdominal pain, Denies belching, Denies melena, Denies bloating, Denies change in bowel habits, Denies dysphagia, Denies excessive flatus, Denies dyspepsia, Denies heartburn, Denies diarrhea, Denies loose stools, Denies nausea, Denies odynophagia and Denies vomiting Musc Reports no additional complaints Neuro Reports no additional complaints Psych Reports no additional complaints Endo Reports no additional complaints Physical Exam Vital Signs: Last Vital Signs Pulse 64 03/07/25 15:27 BP 118/66 03/07/25 15:27 Pulse Ox 94 03/07/25 15:27 Oxygen Delivery Method Room Air 03/07/25 15:27 BMI result Body Mass Index 33.5 Const General: healthy appearing and no acute distress Nutritional Appearance: well nourished and obese Orientation/consciousness: patient oriented x3 Resp Effort & Inspection: normal respiratory effort, able to speak in complete sentences, no tracheal deviation and symmetric chest movement Auscultation: clear to auscultation bilaterally Cardio Rate: regular rate GI Inspection: Yes normal to inspection, No distended and Yes obesity Palpation (GI): Soft to palpation, not firm, nontender and No hepatosplenomegaly present Auscultation: normal bowel sounds General: Yes no CVA tenderness Back/Spine/Pelvis Back: no CVA tenderness Skin General skin exam: elasticity normal, turgor normal and dry skin Neuro General: patient oriented x3 Psych Appearance: grossly normal Mental Status: mental status grossly normal Results Reviewed Results Reviewed: Laboratory Tests 02/11/24 08/29/24 12/03/24 08:27 12:00 18:44 AST 53 H 78 H 57 H ALT 54 H 75 H 58 H Alkaline Phosphatase 116 107 C-Reactive Protein 0.32 Total Protein 7.5 7.5 Albumin 3.9 4.1 ABDOMINAL ULTRASOUND WITH LIVER ELASTOGRAPHY FINDINGS: Liver: The right lobe of the liver measures 14.2 cm in size. The left lobe of the liver measures 11.4 cm in size. The liver demonstrates increased echotexture, consistent with steatosis. Again seen is a 1.6 x 3.4 x 1.0 cm septated cyst in the right lobe. No intrahepatic biliary ductal dilatation is identified. There is normal hepatopedal flow in the portal vein. Ultrasound elastography of the liver was performed with 10 separate measurements of the liver parenchyma with the patient in the supine position. Measurements were obtained approximately 2 cm below Donovan's capsule and perpendicular to the capsule. The median shear wave velocity is 1.54 m/s. The interquartile range/median (IQR/median) is 0.16. Gallbladder and biliary tree: The gallbladder is surgically absent. The common bile duct is measures 9 mm diameter without change. Right Kidney: The right kidney measures 11.1 cm in length. The right kidney is unremarkable, without evidence of masses, hydronephrosis, or calculi. Pancreas: The pancreatic head, neck, and body are unremarkable. The pancreatic tail is obscured by bowel gas. Abdominal aorta and inferior vena cava: The visualized portions of the abdominal aorta and inferior vena cava are normal in caliber. There is no free fluid in the right upper quadrant. US/US abdomen dos santos w elastography IMPRESSION: Hepatic steatosis. 1.6 x 3.4 x 1.0 cm septated cyst in the right lobe. The median shear wave velocity in the liver is 1.54 m/s, corresponding to a median liver stiffness of 7.26 kPa. The IQR/median value is 0.16. This is indicative of a poor quality data set, and the estimated liver stiffness may be unreliable. Findings are indicative of a low elastography value which rules out advanced chronic liver disease in asymptomatic patients. Assessment & Plan Assessment & Plan (1) Transaminitis: Code(s): R74.01 - Elevation of levels of liver transaminase levels Category: Medical (2) Family history of cirrhosis of liver: Code(s): Z83.79 - Family history of other diseases of the digestive system Category: Medical (3) Encounter for screening for malignant neoplasm of colon: Code(s): Z12.11 - Encounter for screening for malignant neoplasm of colon Plan Will rule out out immune disorders. Her liver enzymes are continue to be elevated. Family history of liver cirrhosis. Although patient admits to be eating fatty food. Patient was encouraged to eat low-fat, low carb, low salt and high protein diet. List of food recommended for someone with fatty liver given to patient. Will rule out out immune disorders. Patient has not rescheduled for colonoscopy yet. Message sent to surgical schedulers. Patient verbalizes understanding of instructions and what to do day before procedure. She will see me after the procedure, sooner on as needed basis. She is agreeable to this plan and verbalizes understanding of instructions. She was given the opportunity to ask questions and all questions answered. Thank you for allowing me to participate in her care Orders: Orders Alpha Fetoprotein Today R79.89 - Other specified abnormal findings of blood chemistry Prothrombin Time INR Today R74.8 - Abnormal levels of other serum enzymes Transglutaminase IgA Today R10.9 - Unspecified abdominal pain Liver Fibrosis Pnl Today K76.0 - Fatty (change of) liver, not elsewhere classified Mitochondrial Antibody Today R79.89 - Other specified abnormal findings of blood chemistry Smooth Muscle Antibody Today R79.89 - Other specified abnormal findings of blood chemistry Ceruloplasmin Today R79.89 - Other specified abnormal findings of blood chemistry Ferritin Today R74.8 - Abnormal levels of other serum enzymes TSH reflex Free T4 Today K59.00 - Constipation, unspecified Coding Level of Care Code Est Pt Level 4 (46443) Complex EM visit Add On G2211 Diagnoses Transaminitis R74.01 Family history of cirrhosis of liver Z83.79 Encounter for screening for malignant neoplasm of colon Z12.11 Time Spent (min) 35 Comment 25 minutes spent with patient and additional 10 minutes spent reviewing her rec ords
[2025-03-07 15:27] VITALS: BP 118/66; PULSE 64; O2SAT 94; BMI 33.5
--- OUTSIDE RECORDS SUMMARY | 2025-03-07 15:50 | XMS_ITS | Clinical Summary ---
Author Organization [facility] Address [address] [place] [address] [address] [place] [address] Care Team Providers Care Office Nurse Name Role Phone Name, Parag SHAH Primary Care Provider [phone] Allergies No known active allergies Medications Levoxyl 100 MCG tablet Take 1 tablet (100 mcg) by mouth before breakfast. 90 tablet 3 4 Active cyclobenzaprine (Flexeril) 10 MG tabletIndicatio ns:Acute [...] Type Department Care Team Description 02/06/2025 Refill [facility] [address] [place] [address] Divine Cárdenas NP Acute right-sided low back pain without sciatica; Lumbar radiculopathy, right 01/09/2025 Refill [facility] [address] [place] [address] Praag Maria MD Acute right-sided low back pain without sciatica; Lumbar radiculopathy, right 01/04/2025 Telephone [facility] [address] [place] [address] Laxmi Cadet MA march recalls 12/12/2024 3:30 PM EDT Office Visit [facility] [address] [place] [phone] Parag Maria MD Fatty liver (Primary Dx); Acute right-sided low back pain without sciatica; Lumbar radiculopathy, right 12/12/2024 Travel 12/11/2024 Telephone [facility] [address] [place] [phone] Parag Maria MD CHART PREP 12/06/2024 3:40 PM EDT Office Visit [facility] [address] [place] [phone] Parag Maria MD Lumbar radiculopathy, right (Primary Dx) 12/06/2024 Telephone [facility] [address] [place] [phone] Parag Maria MD ER Follow-up; Nurse Triage from Last 3 Months Immunizations [...] housing situation today? I have erin kumari 02/18/[address] you li ve. Do you have problems with any of the following? Not on file 02/18/2025 Food Insecurity Answer Date Recorded Within the [...] Answer Date Recorded Internet Access Q1 Yes 02/18/2025 Internet Access Q2 Not on file 02/18/2025 Comments Unknown Sex and Gender Information Value [...] Description 04/24/2025 1:00 PM EDT Office Visit [facility] [address] [place] [address] Name, MD Parag [address] [place] [address] 07/03/2025 1:30 PM EST Office Visit [facility] [address] [place] [address] [place], Jen, OD [address] [place] [address] Health Maintenance Due Date Last Done Comments [...] (4 - season) 2024 07/02/2021, 10/29/2020, 10/01/2020 SDOH Screening 02/16/2025 02/17/2024 Influenza Vaccine (#1) 2025 05/17/2018, 2016 Alcohol/Substance Use Screening 12/12/2025 12/12/2024 Depression Screening 12/12/2025 12/12/2024, 02/17/20 24 Disability Screening 12/12/2025 12/12/2024 Tobacco Screening 12/12/2025 12/12/2024 Mammogram 02/23/2026 02/24/2024, 04/2 , 02/26/2021, Additional history exists Lipid Panel 02/10/2029 02/11/2024, 03/0 09/2021, 01/29/2021, Additional history exists DTaP/Tdap/Td Vaccines [...] Procedure Name Priority Date/Time Associated Diagnosis Comments US ABDOMEN LINARES W ELASTOGRAPHY Routine 02/13/2025 8:46 AM EDT Fatty liver BI MAMMOGRAM SCREENING TOMOSYNTHESIS BILATERAL Routine 02/24/2024 [...] Recently Relevant to Health Maintenance Results * US ABDOMEN LINARES W ELASTOGRAPHY (02/13/2025 8:46 AM EDT) Anatomical Region Laterality Modality Abdomen Ultrasound 02/13/2025 8:46 AM EDT Narrative 02/13/2025 9:12 AM EDT [place] [address] Ultrasound Report Signed Patient: Annmarie Holloway MR#: [id number] 56 : 1970 Acct:[id number] Age/Sex: 54 / F ADM Date: 02/13/25 Loc: HO.US Attending Dr: Parag Maria MD Ordering Physician: Parag Maria MD Date of Service: 02/13/25 Procedure(s): US abdomen linares w elastography Accession Number(s): [id number] cc: Parag Maria MD EXAMINATION: US ABDOMEN LIMITED WITH LIVER ELASTOGRAPHY HISTORY: fatty liver, possible cirrhosis on CT scan TECHNIQUE: Real-time grayscale ultrasound imaging of the right upper quadrant was performed and images were reviewed. COMPARISON: Comparison is made with the prior examination dated 03/04/2023. FINDINGS: Liver: The right lobe of the liver measures 14.2 cm in size. The left lobe of the liver measures 11.4 cm in size. The liver demonstrates increased echotexture, consistent with steatosis. Again seen is a 1.6 x 3.4 x 1.0 cm septated cyst in the right lobe. No intrahepatic biliary ductal dilatation is identified. There is normal hepatopedal flow in the portal vein. Ultrasound elastography of the liver was performed with 10 separate measurements of the liver parenchyma with the patient in the supine position. Measurements were obtained approximately 2 cm below Donovan's capsule and perpendicular to the capsule. The median shear wave velocity is 1.54 m/s. The interquartile range/median (IQR/median) is 0.16. Gallbladder and biliary tree: The gallbladder is surgically absent. The common bile duct is measures 9 mm diameter without change. Right Kidney: The right kidney measures 11.1 cm in length. The right kidney is unremarkable, without evidence of masses, hydronephrosis, or calculi. Pancreas: The pancreatic head, neck, and body are unremarkable. The pancreatic tail is obscured by bowel gas. Abdominal aorta and inferior vena cava: The visualized portions of the abdominal aorta and inferior vena cava are normal in caliber. There is no free fluid in the right upper quadrant. US/US abdomen linares w elastography IMPRESSION: Hepatic steatosis. 1.6 x 3.4 x 1.0 cm septated cyst in the right lobe. The median shear wave velocity in the liver is 1.54 m/s, corresponding to a median liver stiffness of 7.26 kPa. The IQR/median value is 0.16. This is indicative of a poor quality data set, and the estimated liver stiffness may be unreliable. Findings are indicative of a low elastography value which rules out advanced chronic liver disease in asymptomatic patients. REFERENCE: Society of Radiologists in Ultrasound Liver Stiffness Thresholds (2020): LIVER STIFFNESS THRESHOLDS: *Shear wave velocity less than 1.3 m/s (Liver Stiffness equal or less than 5 kPa): High probability of being normal. *Shear wave velocity less than 1.7 m/s (Liver Stiffness less than 9 kPa): In the absence of other known clinical signs, rules out compensated advanced chronic liver disease. *Shear wave velocity between 1.7-2.1 m/s (Liver Stiffness 9-13 kPa): Suggestive of compensated advanced chronic liver disease but need further test for confirmation. *Shear wave velocity between 2.1-2.4 m/s (Liver Stiffness 13-17 kPa): Rules in compensated advanced chronic liver disease. *Shear wave velocity greater than 2.4 m/s (Liver Stiffness over 17 kPa): Suggestive of clinically significant portal hypertension. QUALITY OF DATA SET: *IQR/Median value equal or less than 0.15 implies a quality data set. *IQR/Median value over 0.15 implies a poor quality data set. SIGNIFICANT CHANGE FROM PRIOR EXAM: Significant change if liver stiffness measurement is 10% or greater from prior exam. OTHER CONSIDERATIONS: The stage of liver fibrosis may be overestimated in the setting of acute hepatitis, liver inflammation, elevated liver function tests, hepatic vascular congestion, obstructive cholestasis, non-fasting state, and infiltrative diseases such as amyloidosis and lymphoma. In some patients with NAFLD, the liver stiffness thresholds for compensated advanced chronic liver disease may be lower. In causes other than viral hepatitis and NAFLD, liver stiffness thresholds are not well established. Electronically signed by: Arpit Parra MD 02/13/2025 09:08 AM EDT RP Dictated By: Arpit Parra MD Signed By: <Electronically signed by Arpit Parra MD in [place]> 02/13/25 0908 DD/ 0846 TD/TT: 02/13/25 0855 Vp Research: Procedure Note Donotuseinterpreter, Image - 02/13/2025 [place] [address] Ultrasound Report Signed Patient: Josué Holloway#: [id number] 56 : 1970Acct:[id number] Age/Sex: 54 / FADM Date: 02/13/25 Loc: HO.US Attending Dr: Parag Maria MD Ordering Physician: Parag Maria MD Date of Service: 02/13/25 Procedure(s): US abdomen linares w elastography Accession Number(s): [id number] cc: Parag Maria MD EXAMINATION: US ABDOMEN LIMITED WITH LIVER ELASTOGRAPHY HISTORY: fatty liver, possible cirrhosis on CT scan TECHNIQUE: Real-time grayscale ultrasound imaging of the right upper quadrant was performed and images were reviewed. COMPARISON: Comparison is made with the prior examination dated 03/04/2023. FINDINGS: Liver: The right lobe of the liver measures 14.2 cm in size. The left lobe of the liver measures 11.4 cm in size. The liver demonstrates increased echotexture, consistent with steatosis. Again seen is a 1.6 x 3.4 x 1.0 cm septated cyst in the right lobe. No intrahepatic biliary ductal dilatation is identified. There is normal hepatopedal flow in the portal vein. Ultrasound elastography of the liver was performed with 10 separate measurements of the liver parenchyma with the patient in the supine position. Measurements were obtained approximately 2 cm below Donovan's capsule and perpendicular to the capsule. The median shear wave velocity is 1.54 m/s. The interquartile range/median (IQR/median) is 0.16. Gallbladder and biliary tree: The gallbladder is surgically absent. The common bile duct is measures 9 mm diameter without change. Right Kidney: The right kidney measures 11.1 cm in length. The right kidney is unremarkable, without evidence of masses, hydronephrosis, or calculi. Pancreas: The pancreatic head, neck, and body are unremarkable. The pancreatic tail is obscured by bowel gas. Abdominal aorta and inferior vena cava: The visualized portions of the abdominal aorta and inferior vena cava are normal in caliber. There is no free fluid in the right upper quadrant. US/US abdomen linares w elastography IMPRESSION: Hepatic steatosis. 1.6 x 3.4 x 1.0 cm septated cyst in the right lobe. The median shear wave velocity in the liver is 1.54 m/s, corresponding to a median liver stiffness of 7.26 kPa. The IQR/median value is 0.16. This is indicative of a poor quality data set, and the estimated liver stiffness may be unreliable. Findings are indicative of a low elastography value which rules out advanced chronic liver disease in asymptomatic patients. REFERENCE: Society of Radiologists in Ultrasound Liver Stiffness Thresholds (2020): LIVER STIFFNESS THRESHOLDS: *Shear wave velocity less than 1.3 m/s (Liver Stiffness equal or less than 5 kPa): High probability of being normal. *Shear wave velocity less than 1.7 m/s (Liver Stiffness less than 9 kPa): In the absence of other known clinical signs, rules out compensated advanced chronic liver disease. *Shear wave velocity between 1.7-2.1 m/s (Liver Stiffness 9-13 kPa): Suggestive of compensated advanced chronic liver disease but need further test for confirmation. *Shear wave velocity between 2.1-2.4 m/s (Liver Stiffness 13-17 kPa): Rules in compensated advanced chronic liver disease. *Shear wave velocity greater than 2.4 m/s (Liver Stiffness over 17 kPa): Suggestive of clinically significant portal hypertension. QUALITY OF DATA SET: *IQR/Median value equal or less than 0.15 implies a quality data set. *IQR/Median value over 0.15 implies a poor quality data set. SIGNIFICANT CHANGE FROM PRIOR EXAM: Significant change if liver stiffness measurement is 10% or greater from prior exam. OTHER CONSIDERATIONS: The stage of liver fibrosis may be overestimated in the setting of acute hepatitis, liver inflammation, elevated liver function tests, hepatic vascular congestion, obstructive cholestasis, non-fasting state, and infiltrative diseases such as amyloidosis and lymphoma. In some patients with NAFLD, the liver stiffness thresholds for compensated advanced chronic liver disease may be lower. In causes other than viral hepatitis and NAFLD, liver stiffness thresholds are not well established. Electronically signed by: Arpit Parra MD 02/13/2025 09:08 AM EDT Dictated By: Arpit Parra MD Signed By: <Electronically signed by Arpit Parra MD in [place]> 02/13/2508 DD/ TD/TT: 02/13/25 0855 Vp Research: Parag Maria MD IM US PROCEDURES Final Result * BI Mammogram Screening Tomosynthesis Bilateral (02/24/2024 2:00 PM EDT) Anatomical Region Laterality Modality Breast Bilateral Mammography 02/24/2024 2:00 PM EDT Narrative 03/15/2024 8:24 PM EDT [facility] [address] [place] [address] Mammography Report Signed with Pineda Patient: Annmarie Holloway MR#: [id number] 56 : 1970 Acct:[id number] Age/Sex: 53 / F ADM Date: 02/24/24 Loc: HO.MAMMO Attending Dr: Parag Maria MD Ordering Physician: Parag Maria MD Results: 2Benign ndings Date of Service: 02/24/24 Follow Up: 1 Year From Orig ina Mammogram Procedure(s): MM tomosynthesis screening BI Accession Number(s): [id number] cc: Parag Maria MD ADDENDUM ADDENDUM #1 [...] by Alex Brush MD in [place]> 06/27/24 144 Addendum Cosigned By: DD/ TD/TT: 02/24/24 EXAMINATION: [...] MD in OV> 03/15/242019 DD/ 99 TD/TT: Vp Research: Procedure Note Donotuseinterpreter, Image - 06/27/2024 [facility] [address] [place] [address] Mammography Report Signed with Addenda Patient: Josué Holloway#: [id number] 56 : 1970Acct:[id number] Age/Sex: 53 / FADM Date: 02/24/24 Loc: HO.MAMMO Attending Dr: Parag Maria MD Ordering Physician: Parag Maria MDResults: 2Benign Fi ndings Date of Service: 02/24/24Follow Up: 1 Year From Orig ina Mammogram Procedure(s): MM tomosynthesis screening BI Accession Number(s): [id number] cc: Name,Parag SHAH ADDENDUM ADDENDUM #1 ADDENDUM: Upon further review, [...] by: Alex Brush MD 06/27/2024 02:44 PM [facility] Addendum Dictated By: Alex Brush MD [...] MD in OV> 03/15/242019 DD/ 99 TD/TT: Vp Research: us Parag Maria MD IMG BI PROCEDURES Edited Result - Final * Hepatitis C Antibody with Reflex to HCV, RNA, Quantitative, Real-Time PCR (02/18/2024 9:02 AM EDT) Hepatitis C Antibody Nonreactive Nonreactive [facility] Comment:Antibodies to HCV no t detected; does not exclude early acuteHCV infection. Blood Venous blood specimen / Unknown 02/18/2024 9:02 AM EDT 02/18/2024 10:40 AM EDT us Parag Maria MD LAB BLOOD ORDERABLES Final Resul t [facility] [address] [place] [phone] * HIV-1/2 Antigen and Antibodies, Fourth Generation, with Reflexes (02/18/2024 9:02 AM EDT) HIV AB/AG Nonreactive Nonreactive [facility] Comment:HIV-1 p24 Ag and/or HIV-1/HIV-2 Ab not detected.A test result that is nonreactive does not exclude thepossibility of exposure to or infection with HIV-1 and/orHIV-2. Nonreactive results in this assay for individualswith prior exposure to HIV-1 and/or HIV-2 may be due toantigen and antibody levels that are below the limit ofdetection of this assay.The [employer] HIV Ag/Ab Combo assay result andsupplemental assay results should be interpreted inconjunction with the patient's clinical presentation,history and other laboratory results. If the results areinconsistent with clinical evidence, additional testing issuggested to confirm the result. Blood Venous blood specimen / Unknown 02/18/2024 9:02 AM EDT 02/18/2024 10:40 AM EDT us Parag Maria MD LAB BLOOD ORDERABLES Final Resul t [facility] [address] [place] [phone] * Lipid Panel, Standard (02/11/2024 8:27 AM EDT) Triglycerides 93 <150 mg/dL [facility] Comment:Desirable Triglyceri de: less than 150 mg/dLBorderline High Triglyceride 150-199 mg/dLHigh Triglyceride: 200-499 mg/dLVery High Triglyceride: greater than or equal to 5OO mg/dL Cholesterol 168 <200 mg/dL [facility] Comment:Desirable Cholestero l: less than 200 mg/dLBorderline High Cholesterol: 200-239 mg/dLHigh Cholesterol: greater than 239 mg/dL LDL Cholesterol Calculated 95 <100 mg/dL [facility] Comment:Desirable LDL: less than 100 mg/dLNear Optimal/Above Optimal LDL: 110- 129 mg/dLBorderline High LDL: 130-159 mg/dLHigh LDL: 160-189 mg/dLVery High LDL: greater than or equal to 190 mg/dL HDL Cholesterol 55 >40 mg/dL [facility] Comment:Desirable HDL: great er than 40 mg/dL Note: This HDL assay may give artificially low results in patients with liver disease. Blood Venous blood specimen / Unknown 02/11/2024 8:27 AM EDT 02/11/2024 11:06 AM EDT Parag Name LAB BLOOD ORDERABLES Final Resul t [facility] [address] [place] [phone] [phone] from Last 3 Months or Most Recently Relevant to Health Maintenance Insurance [facility] C3 Care Teams Office Nurse Relationship Specialty Start Date End Date Name, MD Parag [address] [place] [address] PCP - General Family Medicine 12/24/15
== END 2025-03-07 16:36 | disposition home or self-care (01) ==
LOC: HO.HGI 15:19
PROVIDERS: PCP Internal Medicine Geriatric Medicine; Visit Provider Nurse Practitioner Family
DX: Z01.818 Encounter for other preprocedural examination (principal); Z12.11 Encounter for screening for malignant neoplasm of colon; R74.01 Elevation of levels of liver transaminase levels; Z83.79 Family history of other diseases of the digestive system
CPT/HCPCS: 99214

== ENCOUNTER → 2025-03-07 15:19 | Outpatient (BNVA) | payer MEDICAID, SELFPAY | PROVIDERS: PCP Internal Medicine Geriatric Medicine; Visit Provider Nurse Practitioner Family | DX: R74.01 Elevation of levels of liver transaminase levels (principal); Z83.79 Family history of other diseases of the digestive system; Z12.11 Encounter for screening for malignant neoplasm of colon | CPT/HCPCS: 99212 ==

== ENCOUNTER 2025-03-16 08:49 | Outpatient (REF) | payer MEDICAID, SELFPAY ==
[2025-03-16 09:52] LABS: INTERNATIONAL NORM RATIO 1.2 (0.9-1.1); Prothrombin Time 13.2 SEC (10.9-12.4)
[2025-03-16 10:33] LABS: Ferritin 374 ng/mL (10-250)
[2025-03-21 14:19] LABS: FIB-ALT 48 U/L (6-29); FIB-Alpha-2-Macroglobulin 318 mg/dL (106-279); FIB-Apolipoprotein A1 173 mg/dL (101-198); FIB-GGT 149 U/L (3-70); FIB-Haptoglobin 71 mg/dL (43-212); FIB-Total Bilirubin 0.5 mg/dL (0.2-1.2); Liver Fibrosis Score 0.56; Liver Fibrosis Stage F2; Nec Inflam Act Grade A1-A2; Nec Inflam Act Score 0.36
== END 2025-03-16 08:50 | disposition home or self-care (01) ==
LOC: HO.LAB 08:49
PROVIDERS: PCP Internal Medicine Geriatric Medicine; Visit Provider Nurse Practitioner Family
DX: K76.0 Fatty (change of) liver, not elsewhere classified (principal); R79.89 Other specified abnormal findings of blood chemistry; R74.8 Abnormal levels of other serum enzymes; K59.00 Constipation, unspecified; R10.9 Unspecified abdominal pain
CPT/HCPCS: 36415; 81596; 82105; 82390; 82728; 84443; 85610; 86015; 86364; 86381

== ENCOUNTER 2025-03-26 10:51 | Outpatient (AMB) | payer MEDICAID, SELFPAY ==
[2025-03-26 10:55] VITALS: BP 124/68; PULSE 62; O2SAT 99; BMI 33.5
--- NOTE | 2025-03-26 10:55 | A.OFFVIS_ITS ---
Vital Signs 03/26/25 10:55 Height 5 ft 9 in Weight 227 lb BMI 33.5 BP 124/68 Blood Pressure Location Rt brachial Position Sitting Pulse 62 Pulse Source Pulse Oximeter Pulse Oximetry (%) 99 Oxygen Delivery Method Room Air Intake Visit Reasons: Pt req visit. Review results. Intake Note: Est pt for mgmt of fatty liver / abn labs. Review lab results. CC; Pt denies any GI sx changes since last visit. Pt wishes to review results today. Frame Stripper And Crusher Required: No Accompanied by: Self / Same As Patient Allergies No Known Allergies (No Known Allergies*) Allergy (Verified 03/26/25 10:59) HPI HPI Pt req visit. Review results.: Details: LAST VISIT: Transaminitis Family history of cirrhosis of liver Encounter for screening for malignant neoplasm of colon Plan Will rule out out immune disorders. Her liver enzymes are continue to be elevated. Family history of liver cirrhosis. Although patient admits to be eating fatty food. Patient was encouraged to eat low-fat, low carb, low salt and high protein diet. List of food recommended for someone with fatty liver given to patient. Will rule out out immune disorders. Patient has not rescheduled for colonoscopy yet. Message sent to surgical schedulers. Patient verbalizes understanding of instructions and what to do day before procedure. She will see me after the procedure, sooner on as needed basis. She is agreeable to this plan and verbalizes understanding of instructions. She was given the opportunity to ask questions and all questions answered. ? Thank you for allowing me to participate in her care Orders Alpha Fetoprotein Today R79.89 Prothrombin Time INR Today R74.8 Transglutaminase IgA Today R10.9 Liver Fibrosis Pnl Today K76.0 Mitochondrial Antibody Today R79.89 Smooth Muscle Antibody Today R79.89 Ceruloplasmin Today R79.89 Ferritin Today R74.8 TSH reflex Free T4 Today K59.00 TODAY'S VISIT Patient is here today to discuss lab results as well as discuss prepping before going for colonoscopy. Patient reports that she is moving her bowels better now. Patient started using from water, lemon, cucumber, pineapple and cinnamon. Patient reports that she moves her bowels after starting this regimen. Patient is concerned about certain elevation in her levels which have we discussed during this visit. Patient has a list of food recommended. Following low fat diet for fatty liver. Patient has not received the phone call for colonoscopy yet. Message sent to surgical schedulers to book procedure for patient. No issues with anesthesia. No history of sleep apnea. Not on any anticoagulation medication. Denies any cardiac or respiratory symptoms. [facility] Medical History (Updated 03/26/25 @ 19:59 by Daniela Mon [facility]-) Nonalcoholic fatty liver Family history of cirrhosis of liver Transaminitis Post-surgical hypothyroidism Primary thyroid cancer Surgical History Hx of total thyroidectomy Hx of cholecystectomy Hx of hysterectomy Family History Father Alcoholic Mother Hypertension CVD (cardiovascular disease) Diabetes Social History Alcohol intake: current Alcohol intake frequency: does not drink Patient Tobacco Use Status: Never used Tobacco Review of Systems Const Denies weight gain and Denies weight loss ENT Reports no additional complaints, Denies dysphagia and Denies odynophagia Card Reports no additional complaints Resp Reports no additional complaints GI Denies abdominal pain, Denies belching, Denies melena, Denies bloating, Denies change in bowel habits, Denies dysphagia, Denies excessive flatus, Denies dyspepsia, Denies heartburn, Denies diarrhea, Denies loose stools, Denies nausea, Denies odynophagia and Denies vomiting Musc Reports no additional complaints Neuro Reports no additional complaints Psych Reports no additional complaints Endo Reports no additional complaints Physical Exam Vital Signs: Last Vital Signs Pulse 62 03/26/25 10:55 BP 124/68 03/26/25 10:55 Pulse Ox 99 03/26/25 10:55 Oxygen Delivery Method Room Air 03/26/25 10:55 BMI result Body Mass Index 33.5 Const General: healthy appearing and no acute distress Nutritional Appearance: well nourished and obese Orientation/consciousness: patient oriented x3 Resp Effort & Inspection: normal respiratory effort, able to speak in complete sentences, no tracheal deviation and symmetric chest movement Auscultation: clear to auscultation bilaterally Cardio Rate: regular rate GI Inspection: Yes normal to inspection, No distended and Yes obesity Palpation (GI): Soft to palpation, not firm, nontender and No hepatosplenomegaly present Auscultation: normal bowel sounds General: Yes no CVA tenderness Back/Spine/Pelvis Back: no CVA tenderness Skin General skin exam: elasticity normal, turgor normal and dry skin Neuro General: patient oriented x3 Psych Appearance: grossly normal Mental Status: mental status grossly normal Results Reviewed Results Reviewed: Laboratory Tests 03/16/25 09:03 Ferritin 374 H Liver GGT 149 H Liver Fibrosis Stage F2 Ceruloplasmin 22 Alpha Fetoprotein 10.3 H TSH 3.87 Anti-Mitochondrial Ab NEGATIVE Anti-Smooth Muscle Ab 20 H Assessment & Plan Assessment & Plan (1) Transaminitis: Code(s): R74.01 - Elevation of levels of liver transaminase levels Category: Medical (2) Family history of cirrhosis of liver: Code(s): Z83.79 - Family history of other diseases of the digestive system Category: Medical (3) Encounter for screening for malignant neoplasm of colon: Code(s): Z12.11 - Encounter for screening for malignant neoplasm of colon (4) Nonalcoholic fatty liver: Code(s): K76.0 - Fatty (change of) liver, not elsewhere classified Category: Medical Plan What to expect before during and after procedure discussed with patient. Stressed the importance of good bowel prep and clear liquid diet day before procedure. Continue low-fat, low salt, low carb and high-protein diet. I will see patient after the procedure, sooner on as needed basis. She is agreeable to this plan and verbalizes understanding of instructions. She was given the opportunity to ask questions and all questions answered. Thank you for allowing me to participate in her care Medications: New bisacodyl (Dulcolax (bisacodyl)) take 4 tabs at noon the day before your colonoscopy 20 mg (4 x 5 mg) PO ONCE 4 tabs 0RF constipation 1 day Z12.11 - Encounter for screening for malignant neoplasm of colon polyethylene glycol 3350 (Miralax) As directed by gastroenterology department at [facility] 238 grams PO ONCE 238 grams 0RF Z12.11 - Encounter for screening for malignant neoplasm of colon Coding Level of Care Code Est Pt Level 4 (12048) Complex EM visit Add On G2211 Diagnoses Transaminitis R74.01 Family history of cirrhosis of liver Z83.79 Encounter for screening for malignant neoplasm of colon Z12.11 Nonalcoholic fatty liver K76.0 Time Spent (min) 35 Comment 25 minutes spent with patient and additional 10 minutes spent reviewing her records
--- OUTSIDE RECORDS SUMMARY | 2025-03-26 12:06 | XMS_ITS | Clinical Summary ---
Author Organization [employer] Address [address] [place] [address] [address] [place] [address] Care Team Providers Care Lumber Straightener Name Role Phone Name, Parag SHAH Primary Care Provider [phone] Allergies No known active allergies Medications cyclobenzaprin e (Flexeril) 10 MG tabletIndicati ons:Acute right-sided low back pain without sciatica,Lumba r radiculopathy, right TAKE 1 TABLET BY MOUTH THREE TIMES A DAY 90 tablet 03/08/20 25 Active levothyroxine (Synthroid, Levoxyl) 100 MCG tablet TAKE 1 TABLET BY MOUTH EVERY MORNING BEFORE BREAKFAST. NAME BRAND ONLY. 90 tablet 3 03/21/20 25 Active Levoxyl 100 MCG tablet Take 1 tablet (100 mcg) by mouth before breakfast. 90 tablet 3 03/01/20 24 025 Discontinued cyclobenzaprin e (Flexeril) 10 MG tabletIndicati ons:Acute right-sided low back pain without sciatica,Lumba r radiculopathy, right TAKE 1 TABLET BY MOUTH THREE TIMES A DAY 90 tablet 02/07/20 25 025 Discontinued Levoxyl 100 MCG tablet TAKE 1 TABLET BY MOUTH BEFORE BREAKFAST 30 tablet 11 03/08/20 25 025 Discontinued levothyroxine (Synthroid) 100 MCG tablet TAKE 1 TABLET BY MOUTH BEFORE BREAKFAST 90 tablet 3 03/08/20 25 025 Discontinued levothyroxine (Synthroid, Levoxyl) 100 MCG tablet TAKE 1 TABLET BY MOUTH EVERY DAY BEFORE BREAKFAST 90 tablet 3 03/16/20 25 025 Discontinued(Re order (will not trigger notification to Pharmacy)) levothyroxine (Synthroid, Levoxyl) 100 MCG tablet TAKE 1 TABLET BY MOUTH EVERY DAY BEFORE BREAKFAST 90 tablet 3 03/19/20 25 025 Discontinued Active Problems Problem Noted Date Diagnosed [...] neck and submandibular glands. 03/27/16 WBS at [facility] residual iodine uptake in neck . there [...] Encounters Date Type Department Care Team Description 03/20/2025 Refill [facility] MED & PEDS [address] [place] [address] Name, MD Parag 03/19/2025 Refill [facility] MED & PEDS [address] [place] [address] NameParag MD 03/16/2025 Orders Only GENERIC EXTERNAL DATA DEPARTMENT Provider, Generic External Data 03/14/2025 Refill C MEDICINE [address] [place] [address] NameParag MD 03/08/2025 Refill [facility] [address] [place] [address] Parag Maria MD 03/08/2025 Refill [facility] [address] [place] [address] NameParag MD Acute right-sided low back pain without sciatica; Lumbar radiculopathy, right 02/06/2025 Refill C MEDICINE [address] [place] [address] Divine Cárdenas, ANNIKA Acute right-sided low back pain without sciatica; Lumbar radiculopathy, right 01/09/2025 Refill [facility] [address] [facility] [place] [address] Name, MD Parag Acute right-sided low back pain without sciatica; Lumbar radiculopathy, right 01/04/2025 Telephone [facility] MED[facility] [address] [facility] [place] [address] Laxmi Cadet [place] march recalls from Last 3 Months Immunizations Immunization [...] Description 04/24/2025 1:00 PM EDT Office Visit [facility] MEDICINE [address] [place] [address] Name, MD Parag [address] [place] [address] 07/03/2025 1:30 PM EST Office Visit [facility] OPTOMETRY [address] [place] [address] London, Jen, OD [address] [place] [address] Health Maintenance Due Date Last Done Comments [...] Procedure Name Priority Date/Time Associated Diagnosis Comments LIVER FIBROSIS, FIBROTEST ACTITEST PANEL Routine 03/16/2025 9:03 AM EDT ACTIN (SMOOTH MUSCLE) ANTIBODY (IGG) Routine 03/16/2025 9:03 AM EDT TISSUE TRANSGLUTAMINASE AB, IGA Routine 03/16/2025 9:03 AM EDT MITOCHONDRIAL ANTIBODY WITH REFLEX TO TITER Routine 03/16/2025 9:03 AM EDT ALPHA FETOPROTEIN, TUMOR MARKER Routine 03/16/2025 9:03 AM EDT CERULOPLASMIN Routine 03/16/2025 9:03 AM EDT TSH W/REFLEX TO FT4 Routine 03/16/2025 9 :03 AM EDT FERRITIN Routine 03/16/2025 9:03 AM EDT PROTHROMBIN TIME-INR Routine 03/16/2025 9:03 AM EDT US ABDOMEN LINARES W ELASTOGRAPHY Routine 02/13/2025 [...] Recently Relevant to Health Maintenance Results * TSH with Reflex to Free T4 (03/16/2025 9:03 AM EDT) TSH reflex Free T4 3.87 0.32 - 4.0 uIU/mL [facility] 03/16/2025 9:03 AM EDT 03/16/2025 9:03 AM EDT us Generic External Data Provider LAB BLOOD ORDERAB LES Final Result [facility] [address] [place] [phone] * (ABNORMAL) Liver Fibrosis (HCV), FibroTest-ActiTest Panel (03/16/2025 9:03 AM EDT) Liver Fibrosis Score 0.56 [facility] Liver Fibrosis Stage F2 [facility] Liver Fibrosis Interpretation SEE NOTE [facility] Comment:moderate fibrosisFib ro Test Score (f) Metavir Score f>=0 and f<=0.21 : F0 (no fibrosis)f>0.21 and f<=0.27 : F0-F1 (no fibrosis)f>0.27 and f<=0.31 : F1 (minimal fibrosis)f>0.31 and f<=0.48 : F1-F2 (minimal fibrosis)f>0.48 and f<=0.58 : F2 (moderate fibrosis)f>0.58 and f<=0.72 : F3 (advanced fibrosis)f>0.72 and f<=0.74 : F3-F4 (advanced fibrosis)f>0.74 and f<=1.00 : F4 (severe fibrosis) Nec Inflam Act Score 0.36 [facility] Nec Inflam Act Grade A1-A2 [facility] Nec Inflam Act Interpretation SEE NOTE [facility] Comment:minimal activityActi Test Score (a) Metavir Score a>=0 and a<=0.17 : A0 (no activity)a>0.17 and a<=0.29 : A0-A1 (no activity)a>0.29 and a<=0.36 : A1 (minimal activity)a>0.36 and a<=0.52 : A1-A2 (minimal activity)a>0.52 and a<=0.60 : A2 (significant activity)a>0.60 and a<=0.62 : A2-A3 (significant activity)a>0.62 and a<=1.00 : A3 (severe activity) ODK-Lwvfb-3-Macroglo bulin 318(A) 106 - 279 mg/dL [facility] FIB-Haptoglobin 71 43 - 212 mg/dL [facility] FIB-Apolipoprotein A1 173 101 - 198 mg/dL [facility] FIB-Total Bilirubin 0.5 0.2 - 1.2 mg/dL [facility] FIB-GGT 149(A) 3 - 70 U/L [facility] FIB-ALT 48(A) 6 - 29 U/L [facility] Reference ID [id number] [facility] Footnote SEE NOTE [facility] Comment: The reliability of results is dependent on compliance withthe preanalytical and analytical conditions recommended by[employer]. The tests have to be deferred for: acutehemolysis, acute hepatitis, acute inflammation, extrahepatic cholestasis. The advice of a specialist should besought for interpretation in chronic hemolysis and Gilbert'ssyndrome. The test interpretation is not validated in livertransplant patients. Isolated extreme values of one of thecomponents should lead to caution in interpreting theresults. In case of discordance between a biopsy result lida test, it is recommended to seek the advice of aspecialist. The causes of these discordances could be due toa flaw of the test or to a flaw in the biopsy: i.e. a liverbiopsy has a 33% variability rate for one fibrosis stage.FibroTest is interpretable for chronic hepatitis B and C,alcoholic and non alcoholic steatosis. ActiTest isinterpretable for chronic hepatitis B and C.The performance characteristics have been determined by[employer] [facility]. Ithas not been cleared or approved by the U.S. Food and DrugAdministration. Performance characteristics refer to theanalytical performance of the test.[employer], [employer], the associated logo, [employer] and all associated [employer] morillo are theregistered trademarks of [employer]. All third partymarks - (R) and (TM) - are the property of their respectiveowners. (C) 4050-7003 [employer]. Allrights reserved.THIS TEST WAS PERFORMED AT:[employer] [id number] [place] [address]LKVMKGOPI STEWART MD,PHD,CARMELITA 03/16/2025 9:03 AM EDT 03/16/2025 9:03 AM EDT us Generic External Data Provider LAB BLOOD ORDERAB LES Final Result [facility] [address] [place] [phone] * (ABNORMAL) Actin (Smooth Muscle) Antibody (IgG) (03/16/2025 9:03 AM EDT) Smooth Muscle Antibody 20(A) <20 U [facility] Comment:Reference Range: <20 U: Negative>or=20 U: PositiveAntibodies recognizing actin are the main componentof smooth muscle antibodies associated with auto- immune liver disease. Actin antibodies are found inapproximately 75% of patients with autoimmunehepatitis (AIH) type 1, approximately 65% of patientswith autoimmune cholangitis, approximately 30% ofpatients with primary biliary cirrhosis andapproximately 2% of healthy controls. High values areclosely correlated with AIH type 1.THIS TEST WAS PERFORMED AT:[employer] [id number] [place] [address]UJAIRTRRANDY DAVE MD,PHD 03/16/2025 9:03 AM EDT 03/16/2025 9:03 AM EDT us Generic External Data Provider LAB BLOOD ORDERAB LES Final Result Performing Organization Address [facility]/ZIP Co de Phone Number [facility] [address] [place] [address] [phone] * Tissue Transglutaminase Antibody, IgA (03/16/2025 9:03 AM EDT) Transglutaminase IgA <1.0 U/mL [facility] Comment:Value Interpretation ----- <15.0 Antibody not detected> or = 15.0 Antibody detectedTHIS TEST WAS PERFORMED AT:[facility] [address] [address]FTNSRMICHAELA FERRIS MD 03/16/2025 9:03 AM EDT 03/16/2025 9:03 AM EDT Generic External Data Provider LAB BLOOD ORDERAB LES Final Result Performing Organization Address [facility] Co de Phone Number [facility] [address] [place] [phone] * Ceruloplasmin (03/16/2025 9:03 AM EDT) Ceruloplasmin 22 14 - 48 mg/dL [facility] Comment:THIS TEST WAS PERFOR MED AT:[facility] [address] [phone] FERRIS MD 03/16/2025 9:03 AM EDT 03/16/2025 9:03 AM EDT Generic External Data Provider LAB BLOOD ORDERAB LES Final Result Performing Organization Address [facility] Co de Phone Number [facility] [address] [place] [address] [phone] * (ABNORMAL) Alpha-Fetoprotein, Tumor Marker (03/16/2025 9:03 AM EDT) Alpha Fetoprotein 10.3(A) ng/mL [facility] Comment:Reference Range: <6. 1The use of AFP as a tumor marker in females is not recommended.This test was performed using the Sha Coulterchemiluminescent method. Values obtained fromdifferent assay methods cannot be usedinterchangeably. AFP levels, regardless ofvalue, should not be interpreted as absoluteevidence of the presence or absence of disease.THIS TEST WAS PERFORMED AT:[employer] [place] [phone] FERRIS MD 03/16/2025 9:03 AM EDT 03/16/2025 9:03 AM EDT us Generic External Data Provider LAB BLOOD ORDERAB LES Final Result Performing Organization Address [facility] Co de Phone Number [facility] [address] [place] [phone] * Mitochondrial Antibody with Reflex to Titer (03/16/2025 9:03 AM EDT) Mitochondrial Antibodies NEGATIVE NEGATIVE [facility] Comment:The specimen was neg ative for cytoplasmic antibodies,however additional staining was observed suggesting thepresence of Antinuclear Antibodies. Consider requestingorder code 249, JC Screen, IFA with Reflex to Titer andPattern, or order code [id number], JC Screen, IFA w/reflexTiter/Pattern, and Reflex to Multiplex 11 Ab [place],if clinically indicated.THIS TEST WAS PERFORMED AT:[employer] [place] [phone] FERRIS MD Mitochondrial Ab Titer TNP [facility] 03/16/2025 9:03 AM EDT 03/16/2025 9:03 AM EDT us Generic External Data Provider LAB BLOOD ORDERAB LES Final Result Performing Organization Address [facility] Co de Phone Number [facility] [address] [place] [phone] * (ABNORMAL) Prothrombin Time-INR (03/16/2025 9:03 AM EDT) Prothrombin Time 13.2(H) 10.9 - 12.4 SEC [facility] INTERNATIONAL NORM RATIO 1.2(H) 0.9 - 1.1 [facility] Comment:INTERNATIONAL NORMAL IZED RATIO (INR) REFERENCE RANGES Reference RangeFor patients not on anticoagulant therapy: 0.9 - 1.1INR ranges for oral anticoagulanttherapy:For prevention and treatment of venous thrombosis and pulmonary embolism: 2.0 - 3.0For acute myocardial infarction with aspirin therapy: 2.0 - 3.0For acute myocardial infarction without aspirin therapy: 3.0 - 4.0For patients with mechanical prosthetic heart valves: 2.5 - 3.5 03/16/2025 9:03 AM EDT 03/16/2025 9:03 AM EDT us Generic External Data Provider LAB BLOOD ORDERAB LES Final Result Performing Organization Address City/[facility]/ZIP Co de Phone Number [facility] [address] [place] [phone] * (ABNORMAL) Ferritin (03/16/2025 9:03 AM EDT) Ferritin 374(H) 10 - 250 ng/mL [facility] 03/16/2025 9:03 AM EDT 03/16/2025 9:03 AM EDT Generic External Data Provider LAB BLOOD ORDERAB LES Final Result Performing Organization Address City/[facility]/ZIP Co de Phone Number [facility] [address] [place] [phone] * US ABDOMEN LINARES W ELASTOGRAPHY (02/13/2025 8:46 AM EDT) Anatomical Region Laterality Modality Abdomen Ultrasound 02/13/2025 8:46 AM EDT Narrative 02/13/2025 9:12 AM EDT [address] [address] Ultrasound Report Signed Patient: Annmarie Holloway MR#: [id number] 56 : 1970 Acct:[id number] Age/Sex: 54 / F ADM Date: 02/13/25 Loc: HO.US Attending Dr: Parag Maria MD Ordering Physician: Parag Maria MD Date of Service: 02/13/25 Procedure(s): US abdomen linares w elastography Accession Number(s): [id number] cc: Name,Parag SHAH EXAMINATION: US ABDOMEN LIMITED WITH LIVER ELASTOGRAPHY [...] 02/13/25 0908 DD/ 0846 TD/TT: 02/13/25 0855 Entrepreneurial Finance Professor: Procedure Note Donotuseinterpreter, Image - 02/13/[address] [address] Ultrasound Report Signed Patient: Josué Holloway#: [id number] 56 : 1970Acct:[id number] Age/Sex: 54 / FADM Date: 02/13/25 Loc: HO.US Attending Dr: Parag Maria MD Ordering Physician: Parag Maria MD Date of Service: 02/13/25 Procedure(s): US abdomen linares w elastography Accession Number(s): [id number] cc: NameParag MD EXAMINATION: US ABDOMEN LIMITED WITH LIVER [...] Arpit Parra MD in OV> 02/13/2508 DD/ 5 TD/TT: 02/13/2555 Entrepreneurial Finance Professor: Parag Maria MD IM US PROCEDURES Final Result * BI Mammogram Screening Tomosynthesis Bilateral (02/24/2024 2:00 PM EDT) Anatomical Region Laterality Modality Breast Bilateral Mammography 02/24/2024 2:00 PM EDT Narrative 03/15/2024 8:24 PM EDT [facility] [address] [place] [address] Mammography Report Signed with Addenda Patient: Annmarie Holloway MR#: [id number] 56 : 1970 Acct:[id number] Age/Sex: 53 / F ADM Date: 02/24/24 Loc: HO.MAMMO Attending Dr: Parag Maria MD Ordering Physician: Parag Maria MD Results: 2Benign Fi ndings Date of Service: 02/24/24 Follow Up: 1 Year From Orig ina Mammogram Procedure(s): MM tomosynthesis screening BI Accession Number(s): [id number] cc: Parag Maria MD ADDENDUM ADDENDUM #1 [...] by: Alex Brush MD 06/27/2024 02:44 PM [facility] Addendum Dictated By: Alex Brush MD [...] MD in OV> 03/15/242019 DD/ 1400 TD/TT: Entrepreneurial Finance Professor: Procedure Note Donotuseinterpreter, Image - 06/27/2024 [facility] [address] [place], [place] [address] Mammography Report Signed with Pineda Patient: Josué Holloway#: [id number] 56 : 1970Acct:[id number] Age/Sex: 53 / FADM Date: 02/24/24 Loc: AMADA Attending Dr: Parag Maria MD Ordering Physician: Parag Maria MDResults: 2Benign Fi ndings Date of Service: 02/24/24Follow Up: 1 Year From Orig inal Mammogram Procedure(s): MM tomosynthesis screening BI Accession Number(s): [id number] cc: Parag Maria MD ADDENDUM ADDENDUM #1 [...] MD in OV> 03/15/242019 DD/ 1400 TD/TT: Entrepreneurial Finance Professor: us Parag Maria MD IMG BI PROCEDURES [...] ORDERABLES Final Resul t [facility] [address] [place] [phone] * HIV-1/2 Antigen and Antibodies, Fourth Generation, with Reflexes (02/18/2024 9:02 AM EDT) HIV AB/AG Nonreactive Nonreactive [facility] Comment:HIV-1 p24 Ag and/or HIV-1/HIV-2 Ab not detected.A test result that is nonreactive does not exclude thepossibility of exposure to or infection with HIV-1 and/orHIV-2. Nonreactive results in this assay for individualswith prior exposure to HIV-1 and/or HIV-2 may be due toantigen and antibody levels that are below the limit ofdetection of this assay.The Shoulder Tap[employer]Gener[employer] HIV Ag/Ab Combo assay result andsupplemental assay results should be interpreted inconjunction with the patient's clinical presentation,history and other laboratory results. If the results areinconsistent with clinical evidence, additional testing issuggested to confirm the result. Blood Venous blood specimen / Unknown 02/18/2024 9:02 AM EDT 02/18/2024 10:40 AM EDT Result Gypsy Maria MD LAB BLOOD ORDERABLES Final Resul t Performing Organization Address [facility] de Phone Number [facility] [address] [place] [phone] [phone] * Lipid Panel, Standard (02/11/2024 8:27 AM EDT) Triglycerides 93 <150 mg/dL [facility] Comment:Desirable Triglyceri de: less than [...] 190 mg/dL HDL Cholesterol 55 >40 mg/dL [facility] Comment:Desirable HDL: great er than 40 mg/dL Note: This HDL assay may give artificially low results in patients with liver disease. Blood Venous blood specimen / Unknown 02/11/2024 8:27 AM EDT 02/11/2024 11:06 AM EDT us Parag Maria MD LAB BLOOD ORDERABLES Final Resul t Performing Organization Address [facility] Co de Phone Number [facility] [address] [place] [address] [phone] from Last 3 Months or Most Recently Relevant to Health Maintenance Insurance [facility] [place] [address] [place] [address] Care Teams Lumber Straightener Relationship Specialty Start Date End Date Name, MD Parag [address] [place] [address] [place] [address] PCP - General Family Medicine 12/24/15
== END 2025-03-26 12:17 | disposition home or self-care (01) ==
PROVIDERS: PCP Internal Medicine Geriatric Medicine; Visit Provider Nurse Practitioner Family
DX: Z01.818 Encounter for other preprocedural examination (principal); Z12.11 Encounter for screening for malignant neoplasm of colon; R74.01 Elevation of levels of liver transaminase levels; Z83.79 Family history of other diseases of the digestive system; K76.0 Fatty (change of) liver, not elsewhere classified
CPT/HCPCS: 99214

== ENCOUNTER → 2025-03-26 10:51 | Outpatient (BNVA) | payer MEDICAID, SELFPAY | PROVIDERS: PCP Internal Medicine Geriatric Medicine; Visit Provider Nurse Practitioner Family | DX: Z01.818 Encounter for other preprocedural examination (principal); R74.01 Elevation of levels of liver transaminase levels; Z83.79 Family history of other diseases of the digestive system; K76.0 Fatty (change of) liver, not elsewhere classified | CPT/HCPCS: 99212 ==

== ENCOUNTER 2025-04-20 12:09 | Day surgery (SDC) | payer MEDICAID, SELFPAY ==
--- NOTE | 2025-04-18 12:29 | HO.ANESPROP2 ---
Documented by User: Liliya Sanders NP 04/18/25 12:29 HPI - Anesthesia Eval Consult details Narrative: 54yo F for Colonoscopy PMFSH Active Problems Active Problems: All Active Problems Nonalcoholic fatty liver (Acute) Family history of cirrhosis of liver (Acute) Transaminitis (Acute) Post-surgical hypothyroidism (Acute) Primary thyroid cancer (Acute) Past Medical History Medical History (Updated 03/26/25 @ 19:59 by Daniela Mon [facility]) Nonalcoholic fatty liver Family history of cirrhosis of liver Transaminitis Post-surgical hypothyroidism Primary thyroid cancer Family History Family History Father Alcoholic Mother Hypertension CVD (cardiovascular disease) Diabetes Surgical History Surgical History Hx of total thyroidectomy Hx of cholecystectomy Hx of hysterectomy Social History Social History Are you a primary progressive care unit registered nurse to a significant other at home: No Do you presently have visiting nurse or other home services: No Alcohol intake: current Alcohol intake frequency: does not drink Patient Tobacco Use Status: Never used Tobacco Use of substances other than those prescribed or required for medical reasons: No Have you been hit, kicked, punched, or otherwise hurt by someone within the past year? If so, by whom?: No Are you DNR?: No Advance Directives: No Advance Directives Information Provided: Yes Patient : No Poor oral hygiene: No Meds Allergies Allergy/AdvReac Type Severity Reaction Status Date / Time No Known Allergies (No Known Allergy Verified 04/20/25 13:03 Allergies*) Home Medications ?Medication ?Instructions ?Recorded ?Confirmed ?Last Taken ?Type cyclobenzaprine 10 mg tablet 10 mg PO BEDTIME 12/02/20 04/20/25 Unknown History Assessment and Plan Assessment Anesthesia Assessment: Chart Reviewed Documented by User: Francine Ram MD 04/20/25 13:56 [facility] Past Medical History Medical History (Updated 03/26/25 @ 19:59 by Daniela Mon [facility]) Nonalcoholic fatty liver Family history of cirrhosis of liver Transaminitis Post-surgical hypothyroidism Primary thyroid cancer Family History Family History Father Alcoholic Mother Hypertension CVD (cardiovascular disease) Diabetes Family history of problems with anesthesia: No Surgical History Surgical History Hx of total thyroidectomy Hx of cholecystectomy Hx of hysterectomy History of Problems with Anesthesia: No Social History Social History Are you a primary progressive care unit registered nurse to a significant other at home: No Do you presently have visiting nurse or other home services: No Alcohol intake: current Alcohol intake frequency: does not drink Patient Tobacco Use Status: Never used Tobacco Use of substances other than those prescribed or required for medical reasons: No Have you been hit, kicked, punched, or otherwise hurt by someone within the past year? If so, by whom?: No Are you DNR?: No Advance Directives: No Advance Directives Information Provided: Yes Patient : No Poor oral hygiene: No Meds Allergies Allergy/AdvReac Type Severity Reaction Status Date / Time No Known Allergies (No Known Allergy Verified 04/20/25 13:03 Allergies*) Home Medications ?Medication ?Instructions ?Recorded ?Confirmed ?Last Taken ?Type cyclobenzaprine 10 mg tablet 10 mg PO BEDTIME 12/02/20 04/20/25 Unknown History Exam Airway Mallampati Class: II (missing a couple, nothing loose) TM Dist: >3cm Neck ROM: Full Heart: rrr Lungs: cta Assessment and Plan Assessment Anesthesia Assessment: Anesthesia Plan Discussed Final Anesthetic Review Family History of Problems with Anesthesia: No History of Problems with Anesthesia: No NPO: Yes ASA Class: II Final Preanesthetic Review: No Changes in Pt Med Stat, Meds/Allgs Chart Reviewed and Consent Obtained/Reviewed Patient Risk: Low Procedure Risk: Low Anesthetic Plan Anesthetic Plan: MAC: Disposition: Standard PACU
[2025-04-20 13:04] VITALS: BP 113/73; PULSE 74; RESP 18; TEMP 36.2; O2SAT 96; BMI 32.6
[2025-04-20] MEDS: Lactated Ringers 1,000 ML 100 ML IVCONT (13:18)
--- NOTE | 2025-04-20 13:37 | MHC.SHP ---
Pre-Procedural Eval Section A - 24 Hr Update-Section A only Date of Service: 04/20/25 The patient is an INPATIENT: No The patient has been examined within 24 hours of the surgical procedure. The History & Physical has been completed within 30 days and I have reviewed it.: Yes Section B - Complete if H&P > 30 days Chief Complaint: screening Allergies: Allergies Allergy/AdvReac Type Severity Reaction Status Date / Time No Known Allergies (No Known Allergy Verified 04/20/25 13:03 Allergies*) Plan Diagnosis/Plan: Unchanged I have reviewed the history and physical and performed a pertinent physical examination on my patient. No changes have occurred unless specified. Time Spent With Patient Time: Total time managing care of this patient today ____ minutes.
--- NOTE | 2025-04-20 15:00 | P.OPN-COLO_ITS ---
Colonoscopy Operative Note Operative Note Date of Service: 04/20/25 Narrative: Procedure: Colonoscopy Indication: Screening Endoscopist: Isabella Newby MD Anesthesia Provider: Lawrence Ponce CRNA Anesthesia type: MAC Instrument: Olympus [id number]-[id number] Consent: Indication, risks vs benefits, and alternatives were discussed with the patient who gave written informed consent to proceed. EKG, pulse, pulse oximetry and blood pressure were monitored throughout the procedure. Please see anesthesia flowsheet. Procedure: The patient was brought to the procedure room and placed in the left lateral decubitus position. IV medications were administered by the anesthesia provider in attendance. A digital rectal exam was performed which was normal. A distal attachment cap was affixed to the tip of the colonoscope which was then inserted through the anus and advanced through the colon to the cecum at 70 cm,and terminal ileum. Appendiceal orifice and ileocecal valve were identified. Mucosa was carefully examined under high definition white light as the instrument was slowly withdrawn in a retrograde panoramic fashion. Retroflexion was performed in rectum. The procedure was not difficult. There were no immediate obvious complications. The quality of the prep was BBPS: 2+3+2 = adequate Withdrawal time 16 minutes. Limitations: No limitations. Findings: Mucosa: A few AVMs in sigmoid colon and and a single AVM in transverse colon, remaining mucosa normal to cecum and terminal ileum. Argon plasma coagulation was applied at 09/21 using a straight fire catheter with complete ablation of the AVMs. Protruding lesions: * 1 sessile polyp of size 4 mm in cecum. Cold snare polypectomy was performed. The polyp was completely removed and retrieved.. * Medium internal hemorrhoids without stigmata of recent bleeding. Impression: 1. Colonic AVMs (APC) 2. Total of 1 polyp removed 3. Internal hemorrhoids Recommendations: - Follow path results. - Repeat colonoscopy in 7-10 years if polyp is an adenoma or 5 years if sessile serrated. - Of note pt with question of cirrhosis and high AFP, no mass on US abd 01/2025. Consider MRI liver protocol for further eval.
[2025-04-20 15:02] VITALS: BP 98/56; PULSE 80; RESP 12; TEMP 36.1; O2SAT 97
[2025-04-20 15:17] VITALS: BP 100/64; PULSE 75; RESP 16; O2SAT 98
== END 2025-04-20 15:35 | disposition home or self-care (01) ==
PROVIDERS: PCP Internal Medicine Geriatric Medicine; Visit Provider Internal Medicine
PROC: 0DJD8ZZ Inspection of Lower Intestinal Tract, Via Natural or Artificial Opening Endoscopic (ICD-10-PCS; CPT 45378; principal; 2025-04-20 15:00)
DX: Z12.11 Encounter for screening for malignant neoplasm of colon (principal); K63.5 Polyp of colon; K55.20 Angiodysplasia of colon without hemorrhage; K64.8 Other hemorrhoids; K76.0 Fatty (change of) liver, not elsewhere classified; Z83.49 Family history of other endocrine, nutritional and metabolic diseases; K59.00 Constipation, unspecified; E89.0 Postprocedural hypothyroidism; Z85.850 Personal history of malignant neoplasm of thyroid; R74.01 Elevation of levels of liver transaminase levels; R79.89 Other specified abnormal findings of blood chemistry; R74.8 Abnormal levels of other serum enzymes; R10.9 Unspecified abdominal pain; Z90.49 Acquired absence of other specified parts of digestive tract
CPT/HCPCS: 45388; 45385; 88305; C1889; J2003; J2704

== ENCOUNTER → 2025-04-20 12:09 | Outpatient (BNV) | payer MEDICAID, SELFPAY | PROVIDERS: PCP Internal Medicine Geriatric Medicine; Visit Provider Internal Medicine | DX: Z12.11 Encounter for screening for malignant neoplasm of colon (principal); K63.5 Polyp of colon; K64.8 Other hemorrhoids; K55.21 Angiodysplasia of colon with hemorrhage | CPT/HCPCS: 45385; 45388 ==

== ENCOUNTER 2025-04-24 13:16 | Outpatient (REF) | payer MEDICAID, SELFPAY ==
--- OUTSIDE RECORDS SUMMARY | 2025-04-24 13:00 | XMS_ITS | Encounter Summary ---
Author Organization [employer] Address [address] [place] [address] Care Team Providers Care Fire Support Man Name Role Phone Name, Parag SHAH Primary Care Provider [phone] Reason for Visit * Reason Comments Follow-up Encounter Details Date Type Department Care Team (Latest Contact Info) Description 04/24/2025 1:00 PM EDT Office Visit [facility] [address] [place] [address] Name, MD Parag [address] [place] [address] Metabolic dysfunction-associated steatohepatitis (MASH) (Primary Dx) Social History Tobacco Use Types [...] Sign Reading Time Taken Comments Blood Pressure 122/64 04/24/2025 12:57 PM EDT Pulse 58 04/24/2025 12:57 PM EDT Temperature 35.9 C (96.6 F) 04/24/2025 12:57 PM EDT Respiratory Rate 14 04/24/2025 12:57 PM EDT Oxygen Saturation 99% 04/24/2025 12:57 PM EDT Inhaled Oxygen Concentration - - Weight 102 kg (225 lb 12.8 oz) 04/24/2025 12:57 PM EDT Height 175.3 cm (5' 9 ) 04/24/2025 12:57 PM EDT Body Mass Index 33.34 04/24/2025 12:57 PM EDT documented in this encounter Progress Notes * Parag Maria MD - 04/24/2025 1:00 PM EDT Subjective Patient ID: Annmarie Holloway is a 54 y.o. female who presents for Follow-up. Patient comes for follow-up visit. She is asymptomatic. We discussed the favorable results of recent colonoscopy. She is due for repeat in 10 years. Patient is using levothyroxine as prescribed and TSH is normal. Patient had metabolic associated steatohepatitis. She is immune to hepatitis A and B. She hepatitisC negative. She does not drink alcohol. She is following with [facility]. We again discussed the importance of avoiding sweets, regular physical exertion and weight loss. We discussed starting GLP-1 therapy but she is reluctant to use any medication. She did agree to check her vitamin D levels and vitamin D supplementation depending on the results. Review of Systems Constitutional: Negative for chills and fever. HENT: Negative for sore throat. Respiratory: Negative for cough, shortness of breath and wheezing. Cardiovascular: Negative for chest pain, palpitations and leg swelling. Gastrointestinal: Negative for abdominal pain. Objective Vitals: 04/24/25 1257 BP: 122/64 BP Location: Left arm Patient Position: Sitting BP Cuff Size: Adult Pulse: 58 Resp: 14 Temp: 96.6 ??F (35.9 ??C) TempSrc: Temporal SpO2: 99% Weight: 225 lb 12.8 oz (102 kg) Height: 5' 9 (1.753 m) Physical Exam Constitutional: Appearance: Normal appearance. Cardiovascular: Rate and Rhythm: Normal rate and regular rhythm. Heart sounds: No murmur heard. No gallop. Pulmonary: Effort: Pulmonary effort is normal. No respiratory distress. Breath sounds: Normal breath sounds. No wheezing. Musculoskeletal: Right lower leg: No edema. Left lower leg: No edema. Neurological: Mental Status: She is alert. Latest Reference Range & Units 03/16/25 09:03 Ferritin 10 - 250 ng/mL 374 (H) Ceruloplasmin 14 - 48 mg/dL 22 Prothrombin Time 10.9 - 12.4 SEC 13.2 (H) TSH reflex Free T4 0.32 - 4.0 uIU/mL 3.87 Alpha Fetoprotein ng/mL 10.3 ! KCL-Txtie-0-Macroglobulin 106 - 279 mg/dL 318 ! FIB-ALT 6 - 29 U/L 48 ! FIB-Apolipoprotein A1 101 - 198 mg/dL 173 FIB-GGT 3 - 70 U/L 149 ! FIB-Haptoglobin 43 - 212 mg/dL 71 FIB-Total Bilirubin 0.2 - 1.2 mg/dL 0.5 Footnote SEE NOTE INTERNATIONAL NORM RATIO 0.9 - 1.1 1.2 (H) Liver Fibrosis Interpretation SEE NOTE Liver Fibrosis Score 0.56 Liver Fibrosis Stage F2 Mitochondrial Ab Titer TNP Mitochondrial Antibodies NEGATIVE NEGATIVE Nec Inflam Act Grade A1-A2 Nec Inflam Act Interpretation SEE NOTE Nec Inflam Act Score 0.36 Reference ID [id number] Smooth Muscle Antibody <20 U 20 ! Transglutaminase IgA U/mL <1.0 (H): Data is abnormally high !: Data is abnormal Assessment/Plan Diagnoses and all orders for this visit: Metabolic dysfunction-associated steatohepatitis (MASH) Comments: Patient does not drink alcohol. She drinks 2 cups of coffee a day and she is recommended to continue. She is immune to hepatitis A and B. We discussed importance of weight loss. She is recommended to avoid sweets and soda and regular physical activity. Check vitamin D levels and supplementation depending on the results. For now she is not interested in treatment with GLP-1 which she will think about it if she cannot lose weight on her own. Orders: - Vitamin D, 25-Hydroxy, Total, Immunoassay; Future Future Appointments Date Time Provider Department Center 07/03/2025 1:30 PM Jen Callahan OD [facility] documented in this encounter Plan of Treatment Upcoming Encounters Date Type Department Care Team (Late st Contact Info) Description 07/03/2025 1:30 PM EST Office Visit [facility] OPTOM[facility]RY [address] [place] [address] Jen Callahan OD [address] [place] [address] Scheduled Orders Name Type Priority Associated Diagnoses Orde r Schedule Vitamin D, 25-Hydroxy, Total, Immunoassay Lab Routine Metabolic dysfunction-associated steatohepatitis (MASH) Expected: 04/24/2025 (Approximate), Expires: 04/24/2026 documented as of this encounter Visit Diagnoses Diagnosis Metabolic dysfunction-associated steatohepatitis (MASH)- Primary documented in this encounter Additional Health Concerns Assessment Noted Time PHQ-9 Depression Total Score: 0 02/17/20 24 11:11 AM EDT documented as of this encounter Care Teams Fire Support Man Relationship Specialty Start Date End Date Name, MD Parag [address] [place] [address] PCP - General Family Medicine 12/24/15 documented as of this encounter
--- OUTSIDE RECORDS SUMMARY | 2025-04-24 16:18 | XMS_ITS | Encounter Summary ---
Author Organization [employer] Address [address] [place] [address] Care Team Providers Care Personnel Associate Name Role Phone Name, Parag SHAH Primary Care Provider [phone] Encounter Details Date Type Department Care Team (Latest Contact Info) Description 04/24/2025 Travel Social History Tobacco Use Types Packs/Day Years [...] as of this encounter Plan of Treatment Upcoming Encounters Date Type Department Care Team (Late st Contact Info) Description 07/03/2025 1:30 PM EST Office Visit [facility] OPTOM[facility]RY [address] [place] [address] LondonJen romo, OD [address] [place] [address] documented as of this encounter Visit Diagnoses Not on filedocumented in this encounter Additional Health Concerns Assessment Noted Time PHQ-9 Depression Total Score: 0 02/17/20 24 11:11 AM EDT documented as of this encounter Care Teams Personnel Associate Relationship Specialty Start Date End Date Name, MD Parag [address] [place] [address] PCP - General Family Medicine 12/24/15 documented as of this encounter
--- OUTSIDE RECORDS SUMMARY | 2025-04-24 16:18 | XMS_ITS | Clinical Summary ---
Author Organization [employer] Address [address] [place] [address] [address] [place] [address] Care Team Providers Care Rail Transportation Tabeler Name Role Phone Name, Parag SHAH Primary Care Provider [phone] Allergies No known active allergies Medications cyclobenzaprine (Flexeril) 10 MG tabletIndicatio ns:Acute right-sided low back pain without sciatica,Lumbar radiculopathy, right TAKE 1 TABLET BY MOUTH THREE TIMES A DAY 90 tablet 03/08/2025 Active levothyroxine (Synthroid, Levoxyl) 100 MCG tablet TAKE 1 TABLET BY MOUTH EVERY MORNING BEFORE BREAKFAST. NAME BRAND ONLY. 90 tablet 3 03/21/2025 Active Active Problems Problem Noted Date Diagnosed Date Family history of cirrhosis of liver 04/24/2025 Fracture of triquetral bone of left wrist 2024 Left wrist sprain 04/24/2025 Nonalcoholic fatty liver 04/24/2025 Primary thyroid cancer 04/24/2025 Strain of lumbar region 04/24/2025 Acute right-sided low back pain without sciatica [...] Encounters Date Type Department Care Team Description 04/24/2025 1:00 PM EDT [facility] [place] [address] Parag Maria MD Metabolic dysfunction-associated steatohepatitis (MASH) (Primary Dx) 04/24/2025 Abstract [facility] [address] [facility] [place] [address] Parag Maria MD 04/24/2025 Travel 04/23/2025 Telephone [facility] [address] [place] [phone] Laxmi Cadet MA chart prep 04/20/2025 Orders Only GENERIC EXTERNAL DATA DEPARTMENT Provider, Generic External Data 03/20/2025 Refill [facility] [address] [place], [place] [phone] Parag Maria MD 03/19/2025 Refill [facility] [address] [place], [place] [phone] Parag Maria MD 03/16/2025 Orders Only GENERIC EXTERNAL DATA DEPARTMENT Provider, Generic External Data 03/14/2025 Refill [facility] [address] [place] [phone] Parag Maria MD 03/08/2025 Refill [facility] [address] [place] [phone] Parag Maria MD 03/08/2025 Refill [facility] [address] [place] [phone] Parag Maria MD Acute right-sided low back pain without sciatica; Lumbar radiculopathy, right 02/06/2025 Refill [facility] [address] [place] [address] Divine Cárdenas NP Acute right-sided low back pain without sciatica; Lumbar radiculopathy, right from Last 3 Months Immunizations Immunization Administration [...] Mass Index 33.34 04/24/2025 12:57 PM EDT Plan of Treatment Upcoming Encounters Date Type Department Care Team (Late st Contact Info) Description 07/03/2025 1:30 PM EST [facility] [address] [place] [address] London, Jen, OD [address] [place] [address] Health Maintenance Due Date Last Done Comments CT Colonography 1970 FIT DNA/Cologuard 1970 FIT 1970 FOBT 1970 Sigmoidoscopy 1970 Pneumococcal Vaccine: 50+ Years (1 of 1 - PCV) 2019 SDOH Screening 02/16/2025 02/17/2024 COVID-19 Vaccine ( season) 2025 07/02/2021, 10/29/2020, 10/01/2020 Influenza Vaccine (#1) 2025 05/17/2018, 2016 Alcohol/Substance Use Screening 12/12/2025 12/12/2024 Depression Screening 12/12/2025 12/12/2024, 02/17/20 24 Disability Screening 12/12/2025 12/12/2024 Mammogram 02/23/2026 02/24/2024, 04/2 , 02/26/2021, Additional history exists Tobacco Screening 04/24/2026 04/24/2025 Lipid Panel 02/10/2029 02/11/2024, 03/0 09/2021, 01/29/2021, Additional history exists DTaP/Tdap/Td Vaccines (3 - Td or Tdap) 09/19/2031 09/19/2021, 10/30/2010, 09/16/2000 Colonoscopy 04/20/2035 04/20/2025 Colorectal Cancer Screening 04/20/2035 RSV Patients and Patients Aged 60 years or older (1 - 1-dose 75+ series) 2044 Hepatitis A Vaccines Discontinued 10/04/2017 Hepatitis B Vaccines Discontinued 05/17/2018, 10/05/19 18 Zoster Vaccines Completed 03/16/2022, 01/05/2022 HIV Screening [...] Procedure Name Priority Date/Time Associated Diagnosis Comments HEMATOXYLIN AND EOSIN STAIN Routine 04/20/2025 2:47 PM EDT HM COLONOSCOPY Routine 04/20/2025 LIVER FIBROSIS, FIBROTEST ACTITEST PANEL Routine 03/16/2025 [...] Recently Relevant to Health Maintenance Results * Hematoxylin and Eosin Stain (04/20/2025 2:47 PM EDT) 04/20/2025 2:47 PM EDT 04/23/2025 7:12 AM EDT [facility] - 04/24/2025 12:29 PM EDT ----- ------- Name: Annmarie Holloway Age/Sex: 54/F : 1970 Unit#: [id number] Attend Dr: Isabella Newby MD Re04/20/25 Status: [facility] Location: [facility] Disch: ----- ------- SPEC : [id number] RECD: 04/23/25 STATUS: CRYSTAL KIRK NUM: [id number] PERNELL: 04/20/25-1447 [facility] DR: Isabella Newby MD ENTERED: 04/23/25 SP TYPE: Surgical OTHR DR: Parag Maria MD ORDERED: HE Stain/3, Gross Micro L4 Diagnosis Cecum, polypectomy: Colonic mucosa with mild surface hyperplastic changes and prominent lymphoid aggregates. Clinical History Pre-Op Dx: Screening Post-Op Dx: Colon polyp, AVMS of transverse and sigmoid colon Microscopic Description Microscopic sections reviewed. Material Received Cecal polyp Gross Description Received in formalin labeled cecal polyp are fragments of su-white and yellow su soft tissue measuring 0.2-0.6 cm in greatest dimension, forming an aggregate measuring 1.4 x 1.0 x 0.2 cm which is wrapped in lens paper and entirely submitted for microscopic examination, multiple pieces in cassette A. ([facility]) IHC S/NG Disclaimer NOTE: Unless otherwise stated, all tissue is formalin-fixed and paraffin-embedded. Some or all of the immunohistochemical tests reported herein may have been developed and their performance characteristics determined by [facility]. They have not been cleared or approved by the U.S. Food and Drug Administration (FDA). However, the FDA has determined that such clearance or approval is not necessary. This laboratory is certified under the Clinical Laboratory Improvement Amendments of 1988 (CLIA) as qualified to perform high complexity clinical laboratory testing. Copies To: Parag Maria MD [address] [id number] CONTINUED ON NEXT PAGE ----- ------- Name: Annmarie Holloway Age/Sex: 54/F : 1970 Unit#: [id number] Attend Dr: Isabella Newby MD Re04/20/25 Status: [facility] Location: [facility] Disch: ----- ------- SPEC : [id number] RECD: 04/23/25 STATUS: CRYSTAL KIRK NUM: [id number] PERNELL: 04/20/25-1447 [facility] DR: Isabella Newby MD ENTERED: 04/23/25 SP TYPE: Surgical OTHR DR: Parag Maria MD ORDERED: HE Stain/3, Gross Micro L4 Copies To: (Continued) Isabella Newby MD [facility] [address] [place] [address] [phone] [email or web address] ----- ------- Signed (signature on file) Regan Parra MD 04/24/25 1229 ----- ------- END OF REPORT Generic External Data Provider LAB BLOOD ORDERAB LES Final Result Performing Organization Address [facility] Co de Phone Number [facility] [address] [place] [phone] * Hm Colonoscopy (04/20/2025) Colonoscopy Normal Normal 04/20/2025 Parag Maria MD HEALTH MAINTENANCE Final Result * TSH with Reflex to Free T4 (03/16/2025 9:03 AM EDT) TSH reflex Free T4 3.87 0.32 - 4.0 uIU/mL [facility] 03/16/2025 9:03 AM EDT 03/16/2025 9:03 AM EDT Generic External Data Provider LAB BLOOD ORDERAB LES Final Result Performing Organization Address [facility]/ZIP Co de Phone Number [facility] [address] [place] [address] [phone] * (ABNORMAL) Liver Fibrosis (HCV), FibroTest-ActiTest Panel (03/16/2025 9:03 AM EDT) Liver Fibrosis Score 0.56 [facility] Liver Fibrosis Stage F2 [facility] Liver Fibrosis Interpretation SEE NOTE [facility] Comment:moderate fibrosisFib ro Test Score (f) Metavir Score f>=0 and f<=0.21 : F0 (no fibrosis)f>0.21 and f<=0.27 : F0-F1 (no fibrosis)f>0.27 and f<=0.31 : F1 (minimal fibrosis)f>0.31 and f<=0.48 : F1-F2 (minimal fibrosis)f>0.48 and f<=0.58 : F2 (moderate fibrosis)f>0.58 and f<=0.72 : F3 (advanced fibrosis)f>0.72 and f<=0.74 : F3-F4 (advanced fibrosis)f>0.74 and f<=1.00 : F4 (severe fibrosis) Nec Inflam Act Score 0.36 [facility] Nec Inflam Act Grade A1-A2 [facility] Nec Inflam Act Interpretation SEE NOTE [facility] Comment:minimal activityActi Test Score (a) Metavir Score a>=0 and a<=0.17 : A0 (no activity)a>0.17 and a<=0.29 : A0-A1 (no activity)a>0.29 and a<=0.36 : A1 (minimal activity)a>0.36 and a<=0.52 : A1-A2 (minimal activity)a>0.52 and a<=0.60 : A2 (significant activity)a>0.60 and a<=0.62 : A2-A3 (significant activity)a>0.62 and a<=1.00 : A3 (severe activity) LAY-Sbvao-8-Macroglo bulin 318(A) 106 - 279 mg/dL [facility] FIB-Haptoglobin 71 43 - 212 mg/dL [facility] FIB-Apolipoprotein A1 173 101 - 198 mg/dL [facility] FIB-Total Bilirubin 0.5 0.2 - 1.2 mg/dL [facility] FIB-GGT 149(A) 3 - 70 U/L [facility] FIB-ALT 48(A) 6 - 29 U/L [facility] Reference ID [id number] [facility] Footnote SEE NOTE [facility] Comment: The reliability of results is [...] and C.The performance characteristics have been determined by[employer] [facility]. Ithas not been cleared or approved by the U.S. Food and DrugAdministration. Performance characteristics refer to theanalytical performance of the test.[employer], the associated logo, [employer] and all associated [employer] morillo are theregistered trademarks of [employer] All third partymarks - (R) and (TM) - are the property of their respectiveowners. (C) [phone] [employer]. Allrights reserved.THIS TEST WAS PERFORMED AT:[employer]/MTPV [id number] [facility] [place] [address]PJQBXGOPI STEWART MD,PHD,CARMELITA 03/16/2025 9:03 AM EDT 03/16/2025 9:03 AM EDT us Generic External Data Provider LAB BLOOD ORDERAB LES Final Result [facility] [address] [place] [phone] * (ABNORMAL) Actin (Smooth Muscle) Antibody (IgG) (03/16/2025 9:03 AM EDT) Smooth Muscle Antibody 20(A) <20 U [facility] Comment:Reference Range: <20 U: Negative>or=20 U: [...] with AIH type 1.THIS TEST WAS PERFORMED AT:[employer]/[facility] [place] [address]KJTJFENRANDY DAVE MD,PHD 03/16/2025 9:03 AM EDT 03/16/2025 9:03 AM EDT Generic External Data Provider LAB BLOOD ORDERAB LES Final Result [facility] [address] [place] [phone] * Tissue Transglutaminase Antibody, IgA (03/16/2025 9:03 AM EDT) Transglutaminase IgA <1.0 U/mL [facility] Comment:Value Interpretation ----- <15.0 Antibody not detected> or = 15.0 Antibody detectedTHIS TEST WAS PERFORMED AT:[employer] [address] [address]YDXKKMICHAELA FERRIS MD 03/16/2025 9:03 AM EDT 03/16/2025 9:03 AM EDT us Generic External Data Provider LAB BLOOD ORDERAB LES Final Result Performing Organization Address [facility] Co de Phone Number [facility] [address] [place] [address] [phone] * Ceruloplasmin (03/16/2025 9:03 AM EDT) Ceruloplasmin 22 14 - 48 mg/dL [facility] Comment:THIS TEST WAS PERFOR MED AT:[employer] [facility] [address] [address]CPIBCMICHAELA FERRIS MD 03/16/2025 9:03 AM EDT 03/16/2025 9:03 AM EDT Generic External Data Provider LAB BLOOD ORDERAB LES Final Result Performing Organization Address [facility] Phone Number [facility] [address] [place] [phone] * (ABNORMAL) Alpha-Fetoprotein, Tumor Marker (03/16/2025 9:03 AM EDT) Alpha Fetoprotein 10.3(A) ng/mL [facility] Comment:Reference Range: <6. 1The use of AFP as a tumor marker in females is not recommended.This test was performed using the Sha Coulterchemiluminescent method. Values obtained fromdifferent assay methods cannot be usedinterchangeably. AFP levels, regardless ofvalue, should not be interpreted as absoluteevidence of the presence or absence of disease.THIS TEST WAS PERFORMED AT:[employer] [address] [address]TCBQGMICHAELA FERRIS MD 03/16/2025 9:03 AM EDT 03/16/2025 9:03 AM EDT Generic External Data Provider LAB BLOOD ORDERAB LES Final Result Performing Organization Address [facility] Co de Phone Number [facility] [address] [place] [phone] * Mitochondrial Antibody with Reflex to Titer (03/16/2025 9:03 AM EDT) Mitochondrial Antibodies NEGATIVE NEGATIVE [facility] Comment:The specimen was neg ative for cytoplasmic antibodies,however additional staining was observed suggesting thepresence of Antinuclear Antibodies. Consider requestingorder code 249, JC Screen, IFA with Reflex to Titer andPattern, or order code [id number], JC Screen, IFA w/reflexTiter/Pattern, and Reflex to Multiplex 11 Ab [place],if clinically indicated.THIS TEST WAS PERFORMED AT:[facility] [place] [address]QMSKQMICHAELA FERRIS MD Mitochondrial Ab Titer TNP [facility] 03/16/2025 9:03 AM EDT 03/16/2025 9:03 AM EDT [employer] External Data Provider LAB BLOOD ORDERAB LES Final Result Performing Organization Address [facility] Co de Phone Number [facility] [address] [place] [phone] * (ABNORMAL) Prothrombin Time-INR (03/16/2025 9:03 AM EDT) Prothrombin Time 13.2(H) 10.9 - 12.4 SEC [facility] INTERNATIONAL NORM RATIO 1.2(H) 0.9 - 1.1 [facility] Comment:INTERNATIONAL NORMAL IZED RATIO (INR) REFERENCE [...] 9:03 AM EDT 03/16/2025 9:03 AM EDT [employer] External Data Provider LAB BLOOD ORDERAB LES Final Result [facility] [address] [place] [phone] * (ABNORMAL) Ferritin (03/16/2025 9:03 AM EDT) Ferritin 374(H) 10 - 250 ng/mL [facility] 03/16/2025 9:03 AM EDT 03/16/2025 9:03 AM EDT us Generic External Data Provider LAB BLOOD ORDERAB LES Final Result Performing Organization Address [facility] Co de Phone Number [facility] [address] [place] [phone] * US ABDOMEN LINARES W ELASTOGRAPHY (02/13/2025 8:46 AM EDT) Anatomical Region Laterality Modality Abdomen Ultrasound 02/13/2025 8:46 AM EDT Narrative 02/13/2025 9:12 AM EDT [address] [address] Ultrasound Report Signed Patient: Annmarie Holloway MR#: [id number] 56 : 1970 Acct:[id number] Age/Sex: 54 / F ADM Date: 02/13/25 Loc: . Attending Dr: Parag Maria MD Ordering Physician: Parag Maria MD Date of Service: 02/13/25 Procedure(s): US abdomen linares w elastography Accession Number(s): [id number] cc: Parag Maria MD EXAMINATION: US ABDOMEN [...] 02/13/25 0908 DD/ 0846 TD/TT: 02/13/25 0855 Thresher Broomcorn: Procedure Note Donotuseinterpreter, Image - 02/13/2025 [place] [address] Ultrasound Report Signed Patient: Josué Holloway#: [id number] 56 : 1970Acct:[id number] Age/Sex: 54 / FADM Date: 02/13/25 Loc: HO.US Attending Dr: Parag Maria MD Ordering Physician: Parag Maria MD Date of Service: 02/13/25 Procedure(s): US abdomen linares w elastography Accession Number(s): [id number] cc: Parag Maria MD EXAMINATION: US ABDOMEN [...] 02/13/25 0908 DD/ 0846 TD/TT: 02/13/25 0855 Thresher Broomcorn: Parag Maria MD [facility] US PROCEDURES Final Result * BI Mammogram Screening Tomosynthesis Bilateral (02/24/2024 2:00 PM EDT) Anatomical Region Laterality Modality Breast Bilateral Mammography 02/24/2024 2:00 PM EDT Narrative 03/15/2024 8:24 PM EDT [facility] [address] [place] [address] [place] [address] Mammography Report Signed with Pineda Patient: Annmarie Holloway MR#: [id number] 56 : 1970 Acct:[id number] Age/Sex: 53 / F ADM Date: 02/24/24 Loc: AMADA Attending Dr: Parag Maria MD Ordering Physician: Parag Maria MD Results: 2Benign Fi ndings Date of Service: 02/24/24 Follow Up: 1 Year From Orig inal Mammogram Procedure(s): MM tomosynthesis screening BI Accession Number(s): [id number] cc: Parag Maria MD ADDENDUM ADDENDUM #1 [...] MD in OV> 03/15/242019 DD/ 99 TD/TT: Thresher Broomcorn: Procedure Note Donotuseinterpreter, Image - 06/27/2024 [facility] [address] [place], [place] [address] Mammography Report Signed with Addenda Patient: Josué Holloway#: [id number] 56 : 1970Acct:[id number] Age/Sex: 53 / FADM Date: 02/24/24 Loc: HO.MAMMO Attending Dr: Parag Maria MD Ordering Physician: Parag Maria MDResults: 2Benign Fi ndings Date of Service: 02/24/24Follow Up: 1 Year From Orig ina Mammogram Procedure(s): MM tomosynthesis screening BI Accession Number(s): [id number] cc: Parag Maria MD ADDENDUM ADDENDUM #1 [...] by: Alex Brush MD 06/27/2024 02:44 PM [facility] Addendum Dictated By: Alex Brush MD Addendum Signed By: <Electronically signed by lAex Brush MD in OV> 06/27/24 144 Addendum [...] MD in OV> 03/15/242019 DD/ 1400 TD/TT: Thresher Broomcorn: us Parag Maria MD IMG BI PROCEDURES Edited Result - Final * Hepatitis C Antibody with Reflex to HCV, RNA, Quantitative, Real-Time PCR (02/18/2024 9:02 AM EDT) Hepatitis C Antibody Nonreactive Nonreactive [facility] Comment:Antibodies to HCV no t detected; does not exclude early acuteHCV infection. Blood Venous blood specimen / Unknown 02/18/2024 9:02 AM EDT 02/18/2024 10:40 AM EDT us Parag Maria MD LAB BLOOD ORDERABLES Final Resul t [facility] [address] [place] [phone] * HIV-1/2 Antigen and Antibodies, Fourth Generation, with Reflexes (02/18/2024 9:02 AM EDT) HIV AB/AG Nonreactive Nonreactive [facility] Comment:HIV-1 p24 Ag and/or HIV-1/HIV-2 Ab not detected.A test result that is nonreactive does not exclude thepossibility of exposure to or infection with HIV-1 and/orHIV-2. Nonreactive results in this assay for individualswith prior exposure to HIV-1 and/or HIV-2 may be due toantigen and antibody levels that are below the limit ofdetection of this assay.The [employer] HIV Ag/Ab Combo assay result andsupplemental assay results should be interpreted inconjunction with the patient's clinical presentation,history and other laboratory results. If the results areinconsistent with clinical evidence, additional testing issuggested to confirm the result. Blood Venous blood specimen / Unknown 02/18/2024 9:02 AM EDT 02/18/2024 10:40 AM EDT us Parag Name LAB BLOOD ORDERABLES Final Resul t [facility] [address] [place] [address] [phone] * Lipid Panel, Standard (02/11/2024 8:27 AM EDT) Triglycerides 93 <150 mg/dL [facility] Comment:Desirable Triglyceri de: less than 150 mg/dLBorderline High Triglyceride 150-199 mg/dLHigh Triglyceride: 200-499 mg/dLVery High Triglyceride: greater than or equal to 5OO mg/dL Cholesterol 168 <200 mg/dL [facility] Comment:Desirable Cholestero l: less than 200 mg/dLBorderline High Cholesterol: 200-239 mg/dLHigh Cholesterol: greater than 239 mg/dL LDL Cholesterol Calculated 95 <100 mg/dL [facility] Comment:Desirable LDL: less than 100 mg/dLNear Optimal/Above Optimal LDL: 110- 129 mg/dLBorderline High LDL: 130-159 mg/dLHigh LDL: 160-189 mg/dLVery High LDL: greater than or equal to 190 mg/dL HDL Cholesterol 55 >40 mg/dL [facility] Comment:Desirable HDL: great er than 40 mg/dL Note: This HDL assay may give artificially low results in patients with liver disease. Blood Venous blood specimen / Unknown 02/11/2024 8:27 AM EDT 02/11/2024 11:06 AM EDT Parag Maria MD LAB BLOOD ORDERABLES Final Resul t [facility] [address] [place] [phone] from Last 3 Months or Most Recently Relevant to Health Maintenance Insurance [facility] C3 Care Teams Rail Transportation Tabeler Relationship Specialty Start Date End Date Name, MD Parag [address] [place] [address] PCP - General Family Medicine 5/24/16
--- OUTSIDE RECORDS SUMMARY | 2025-04-24 16:18 | XMS_ITS | Encounter Summary ---
Author Organization [employer] Address [address] [facility] [address] [place] [address] Care Team Providers Care Sawmill Relief Worker Name Role Phone Name, Parag SHAH Primary Care Provider [phone] Reason for Visit * Reason Comments Med Change Request Encounter Details Date Type Department Care Team ([facility] st Contact Info) Description 03/01/2024 Refill [facility] [address] [place], [place] [phone] Name, MD Parag [address] [place] [address] Social History Tobacco Use Types Packs/Day Years [...] Description 07/03/2025 1:30 PM EST Office Visit [facility] [address] [place] [address] London, Jen, OD [address] [place] [address] documented as of this encounter Visit Diagnoses Not on filedocumented in this encounter Additional Health Concerns Assessment Noted Time PHQ-9 Depression Total Score: 0 02/17/20 24 11:11 AM EDT documented as of this encounter Care Teams Sawmill Relief Worker Relationship Specialty Start Date End Date Name, MD Parag [address] [place] [address] PCP - General Family Medicine 12/24/15 documented as of this encounter
--- OUTSIDE RECORDS SUMMARY | 2025-04-24 16:18 | XMS_ITS | Encounter Summary ---
Author Organization [employer] Address [address] [facility] [address] [place] [address] Care Team Providers Care Acls Nurse Name Role Phone Name, Parag SHAH Primary Care Provider [phone] Encounter Details Date Type Department Care Team ([facility] st Contact Info) Description 04/24/2025 Abstract [facility] [address] [place] [address] Name, MD Parag [address] [place] [address] Social History Tobacco Use Types Packs/Day Years [...] Description 07/03/2025 1:30 PM EST Office Visit [facility] [address] [place], [place] [phone] London, Megan, OD [address] [place] [address] documented as of this encounter Procedures Procedure Name Priority Date/Time Associated Diagnosis Comments COLONOSCOPY Routine 04/20/2025 documented in this encounter Results * Hm Colonoscopy (04/20/2025) Colonoscopy Normal Normal 04/20/2025 Parag Name HEALTH MAINTENANCE Final Result documented in this encounter Visit Diagnoses Not on filedocumented in this encounter Additional Health Concerns Assessment Noted Time PHQ-9 Depression Total Score: 0 02/17/20 24 11:11 AM EDT documented as of this encounter Care Teams Acls Nurse Relationship Specialty Start Date End Date Name, MD Parag [address] [place], [place] [phone] PCP - General Family Medicine 12/24/15 documented as of this encounter
--- OUTSIDE RECORDS SUMMARY | 2025-04-24 16:18 | XMS_ITS | Encounter Summary ---
Author Organization [employer] Address [address] [place] [address] Care Team Providers Care Vessel Slag Worker Name Role Phone Name, Parag SHAH Primary Care Provider [phone] Reason for Visit * Reason Onset Date [...] (Late st Contact Info) Description 02/28/2024 Refill [facility] MEDICINE [address] [place], [place] [phone] Name, MD Parag [address] [place], [place] [phone] Social History Tobacco Use Types Packs/Day Years [...] Description 07/03/2025 1:30 PM EST Office Visit [facility] OPTOMETRY [address] [place] [address] Jen Callahan, OD [address] [place] [address] documented as of this encounter Visit Diagnoses Not on filedocumented in this encounter Additional Health Concerns Assessment Noted Time PHQ-9 Depression Total Score: 0 02/17/20 24 11:11 AM EDT documented as of this encounter Care Teams Vessel Slag Worker Relationship Specialty Start Date End Date Name, MD Parag [address] [place] [address] PCP - General Family Medicine 12/24/15 documented as of this encounter
--- OUTSIDE RECORDS SUMMARY | 2025-04-24 16:18 | XMS_ITS | Encounter Summary ---
Author Organization [employer] Address [address] [place] [address] Care Team Providers Care Internal Consultant Name Role Phone Name, Parag SHAH Primary Care Provider [phone] Encounter Details Date Type Department Care Team (Late st Contact Info) Description 04/20/2025 Orders Only GENERIC EXTERNAL DATA DEPARTMENT Provider, Generic External Data Social History Tobacco Use Types Packs/Day Years [...] 1:30 PM EST Office Visit [facility] OPTOMETRY [address] [place], [place] [phone] London, Jen, OD [address] [place] [address] documented as of this encounter Procedures Procedure Name Priority Date/Time Associated Diagnosis Comments HEMATOXYLIN AND EOSIN STAIN Routine 04/20/2025 2:47 PM EDT documented in this encounter Results * Hematoxylin and Eosin Stain (04/20/2025 2:47 PM EDT) 04/20/2025 2:47 PM EDT 04/23/2025 7:12 AM EDT [facility] - 04/24/2025 12:29 PM EDT ----- ------- Name: Annmarie Holloway Age/Sex: 54/F : 1970 Unit#: [id number] Attend Dr: Isabella Newby MD Re04/20/25 Status: [facility] Location: [facility] Disch: ----- ------- SPEC : [id number] RECD: 04/23/25 STATUS: CRYSTAL KIRK NUM: [id number] PERNELL: 04/20/[address] [facility] [address]: Isabella Newby MD ENTERED: 04/23/25 [...] microscopic examination, multiple pieces in cassette A. ([facility]) IHC S/NG Disclaimer NOTE: Unless otherwise stated, all tissue is formalin-fixed and paraffin-embedded. Some or all of the immunohistochemical tests reported herein may have been developed and their performance characteristics determined by [facility]. They have not been cleared or approved by the U.S. Food and Drug Administration (FDA). However, the FDA has determined that such clearance or approval is not necessary. This laboratory is certified under the Clinical Laboratory Improvement Amendments of 1988 (CLIA) as qualified to perform high complexity clinical laboratory testing. Copies To: Parag Maria MD [address] [address] CONTINUED ON NEXT PAGE ----- ------- Name: Annmarie Holloway Age/Sex: 54/F : 1970 Unit#: [id number] Attend Dr: Isabella Newby MD Re04/20/25 Status: [facility] Location: [facility] Disch: ----- ------- SPEC : [id number] RECD: 04/23/25 STATUS: CRYSTAL KIRK NUM: [id number] PERNELL: 04/20/25[facility] DR: Isabella Newby MD ENTERED: 04/23/25 SP TYPE: Surgical OTHR DR: Parag Maria MD ORDERED: ALLIE Cartwright/3, Gross Micro L4 Copies To: (Continued) Isabella Newby MD [facility] [address] [place] [address] [phone] [email or web address] ----- ------- Signed (signature on file) Regan Parra MD 04/24/25 1229 ----- ------- END OF REPORT us Generic External Data Provider LAB BLOOD ORDERAB LES Final Result [facility] [address] [place] [phone] documented in this encounter Visit Diagnoses Not on filedocumented in this encounter Additional Health Concerns Assessment Noted Time PHQ-9 Depression Total Score: 0 02/17/20 24 11:11 AM EDT documented as of this encounter Care Teams Internal Consultant Relationship Specialty Start Date End Date Name, MD Parag [address] [place] [address] PCP - General Family Medicine 12/24/15 documented as of this encounter
--- OUTSIDE RECORDS SUMMARY | 2025-04-24 16:18 | XMS_ITS | Encounter Summary ---
Author Organization [employer] Address [address] [place] [address] Care Team Providers Care Senior Copywriter Name Role Phone Name, Parag SHAH Primary Care Provider [phone] Reason for Visit * Reason Onset Date Comments chart prep 04/23/2025 Encounter Details Date Type Department Care Team ([facility] Contact Info) Description 04/23/2025 Telephone [facility] MEDICINE [address] [place] [address] Laxmi Cadet [place] chart prep Social History [...] Telephone Encounter - Laxmi Cadet [place] - 04/23/2025 10:32 AM EDT Chart Prep Labs: done Images: done Referrals: complete 02/13/25 8:30 AM [facility] Vaccines due: Covid, Flu, PCV20, Hep B, and Hep A Screenings: colonoscopy Overdue care gaps: Not applicable documented in this encounter Plan of Treatment Upcoming Encounters Date Type Department Care Team (Late st Contact Info) Description 07/03/2025 1:30 PM EST Office Visit [facility] OPTOMETRY [address] [place] [address] London, Jen, OD [address] [place] [address] documented as of this encounter Visit Diagnoses Not on filedocumented in this encounter Additional Health Concerns Assessment Noted Time PHQ-9 Depression Total Score: 0 02/17/20 24 11:11 AM EDT documented as of this encounter Care Teams Senior Copywriter Relationship Specialty Start Date End Date Name, MD Parag [address] [place] [address] PCP - General Family Medicine 12/24/15 documented as of this encounter
== END 2025-04-24 13:17 | disposition home or self-care (01) ==
LOC: HO.HHCL 13:16
PROVIDERS: PCP Internal Medicine Geriatric Medicine; Visit Provider Internal Medicine Geriatric Medicine
DX: K75.81 Nonalcoholic steatohepatitis (NASH) (principal)
CPT/HCPCS: 36415; 82306

== ENCOUNTER → 2025-05-25 13:09 | Outpatient (BNV) | payer MEDICAID, SELFPAY | PROVIDERS: PCP Internal Medicine Geriatric Medicine; Visit Provider Radiology Diagnostic Radiology | DX: R16.2 Hepatomegaly with splenomegaly, not elsewhere classified (principal); N28.1 Cyst of kidney, acquired | CPT/HCPCS: 74183 ==

== ENCOUNTER 2025-05-25 13:10 | Outpatient (REF) | payer MEDICAID, SELFPAY ==
--- NOTE | ~2025-05-25 | MR_ITS ---
EXAMINATION: MR ABDOMEN WITHOUT AND WITH CONTRAST CLINICAL INFORMATION: R 77.2. Abnormal alpha feta protein COMPARISON: Correlated to CT dated December 03, 2024 and limited ultrasound dated February 13, 2025. TECHNIQUE: MR abdomen was performed without and with use of 10.0 mL intravenous [(Gadavist) gadolinium contrast. Postcontrast images are performed in multiphase dynamic sequences. Imaging was performed in 3 planes. No reported immediate complications FINDINGS: LUNG BASES: No enhancing mass. LIVER, GALLBLADDER, AND BILIARY TREE: Liver measures 16 cm.. There is slight drop-off signal from the in to the out of phase sequence. Nodular surface, subtle. There is a 3.4 cm lobulated, thin septated predominantly fluid signal characteristic lesion without restriction or overt enhancement with a focal 1.1 cm intrinsic hyperintense T1 signal likely blood products. Prominent caudate lobe. Status post cholecystectomy. No intrahepatic or extrahepatic biliary ductal dilatation. Common bile duct measures 6 mm. PANCREAS: No focal mass. No main pancreatic ductal dilatation. No peripancreatic fluid collection. SPLEEN: 12 cm. There is a focal 1 cm probably peripheral enhancing hypointense T1 hyperintense T2 lesion in the inferior aspect. ADRENAL GLANDS: No nodular lesions. KIDNEYS AND URETERS: No hydronephrosis. Normal enhancement pattern of the renal parenchyma. There is a focal 5 mm intrinsic hyperintense T1 nonenhancing or restricted diffusion signal at the corticomedullary junction of the posterior midportion left kidney. No enhancing mass. No dilatation of the ureters. GASTROINTESTINAL TRACT: No intestinal obstruction pattern. No ascites. ABDOMINAL WALL: Small fat-containing umbilical hernia. LYMPH NODES: No gross mesenteric or retroperitoneal lymphadenopathy. VASCULAR: No aneurysm or dissection, abdominal aorta. OSSEOUS STRUCTURES: Mild multilevel thoracolumbar spondylosis. Probable intraosseous hemangioma, L4 vertebra. MR/MR abdomen wo/w con IMPRESSION: Hepatosplenomegaly, mild. Concerning cirrhosis/hepatocellular disease. 3.4 cm lobulated thin septated, nonenhancing hemorrhagic cystic lesion, right hepatic lobe. Underlying malignancy cannot be excluded. 0.5 cm hemorrhagic cyst, left kidney. No ascites. No gross lymphadenopathy. Electronically signed by: Levi Estrella MD 05/25/2025 02:22 PM EDT
--- OUTSIDE RECORDS SUMMARY | 2025-05-25 15:12 | XMS_ITS | Encounter Summary ---
Author Organization [employer] Address [address] [place] [address] Care Team Providers Care Applications Processor Name Role Phone Name, Parag SHAH Primary Care Provider [phone] Encounter Details Date Type Department Care Team (Late st Contact Info) Description 05/25/2025 Orders Only [facility] External Provider, [facility] Social History Tobacco Use Types Packs/Day Years [...] Description 07/03/2025 1:30 PM EST Office Visit [facility] OPTOMETRY [address] [place], [place] [phone] London, Jen, OD [address] [place] [address] documented as of this encounter Procedures Procedure Name Priority Date/Time Associated Diagnosis Comments MR ABDOMEN W AND WO CONTRAST Routine 05/25/2025 1:24 PM EDT documented in this encounter Results * MR Abdomen w/ and w/o Contrast (05/25/2025 1:24 PM EDT) Anatomical Region Laterality Modality Abdomen Magnetic Resonan ce 05/25/2025 1:24 PM EDT Narrative 05/25/2025 2:25 PM EDT [address] [address] Magnetic Resonance Report Signed Patient: Annmarie Holloway MR#: [id number] 56 : 1970 Acct:[id number] Age/Sex: 54 / F ADM Date: 05/25/25 Loc: HO.MRI Attending Dr: Isabella Newby MD Ordering Physician: Isabella Newby MD Date of Service: 05/25/25 Procedure(s): MR abdomen wo/w con Accession Number(s): [id number] cc: Parag Maria MD; Isabella Newby MD Reason for Exam: R77.2 - Abnormality of alphafetoprotein EXAMINATION: MR ABDOMEN WITHOUT AND WITH CONTRAST CLINICAL INFORMATION: R 77.2. Abnormal alpha feta protein COMPARISON: Correlated to CT dated December 03, 2024 and limited ultrasound dated February 13, 2025. TECHNIQUE: MR abdomen was performed without and with use of 10.0 mL intravenous [(Gadavist) gadolinium contrast. Postcontrast images are performed in multiphase dynamic sequences. Imaging was performed in 3 planes. No reported immediate complications FINDINGS: LUNG BASES: No enhancing mass. LIVER, GALLBLADDER, AND BILIARY TREE: Liver measures 16 cm.. There is slight drop-off signal from the in to the out of phase sequence. Nodular surface, subtle. There is a 3.4 cm lobulated, thin septated predominantly fluid signal characteristic lesion without restriction or overt enhancement with a focal 1.1 cm intrinsic hyperintense T1 signal likely blood products. Prominent caudate lobe. Status post cholecystectomy. No intrahepatic or extrahepatic biliary ductal dilatation. Common bile duct measures 6 mm. PANCREAS: No focal mass. No main pancreatic ductal dilatation. No peripancreatic fluid collection. SPLEEN: 12 cm. There is a focal 1 cm probably peripheral enhancing hypointense T1 hyperintense T2 lesion in the inferior aspect. ADRENAL GLANDS: No nodular lesions. KIDNEYS AND URETERS: No hydronephrosis. Normal enhancement pattern of the renal parenchyma. There is a focal 5 mm intrinsic hyperintense T1 nonenhancing or restricted diffusion signal at the corticomedullary junction of the posterior midportion left kidney. No enhancing mass. No dilatation of the ureters. GASTROINTESTINAL TRACT: No intestinal obstruction pattern. No ascites. ABDOMINAL WALL: Small fat-containing umbilical hernia. LYMPH NODES: No gross mesenteric or retroperitoneal lymphadenopathy. VASCULAR: No aneurysm or dissection, abdominal aorta. OSSEOUS STRUCTURES: Mild multilevel thoracolumbar spondylosis. Probable intraosseous hemangioma, L4 vertebra. MR/MR abdomen wo/w con IMPRESSION: Hepatosplenomegaly, mild. Concerning cirrhosis/hepatocellular disease. 3.4 cm lobulated thin septated, nonenhancing hemorrhagic cystic lesion, right hepatic lobe. Underlying malignancy cannot be excluded. 0.5 cm hemorrhagic cyst, left kidney. No ascites. No gross lymphadenopathy. Electronically signed by: Levi Estrella MD 05/25/2025 02:22 PM EDT Dictated By: Levi Ballesteros MD Signed By: <Electronically signed by Levi Garcia MD in OV> 05/25/25 1422 DD/ 1324 TD/TT: 05/25/25 1347 Political Aide: Procedure Note Donotuseinterpreter, Image - 05/25/[address] [address] Magnetic Resonance Report Signed Patient: Josué Holloway#: [id number] 56 : 1970Acct:[id number] Age/Sex: 54 / FADM Date: 05/25/25 Loc: HO.MRI Attending Dr: Isabella Newby MD Ordering Physician: Isabella Newby MD Date of Service: 05/25/25 Procedure(s): MR abdomen wo/w con Accession Number(s): [id number] cc: Candace,Parag SHAH; Isabella Newby MD Reason for Exam: R77.2 - Abnormality of alphafetoprotein EXAMINATION: MR ABDOMEN WITHOUT AND WITH CONTRAST CLINICAL INFORMATION: R 77.2. Abnormal alpha feta protein COMPARISON: Correlated to CT dated December 03, 2024 and limited ultrasound dated February 13, 2025. TECHNIQUE: MR abdomen was performed without and with use of 10.0 mL intravenous [(Gadavist) gadolinium contrast. Postcontrast images are performed in multiphase dynamic sequences. Imaging was performed in 3 planes. No reported immediate complications FINDINGS: LUNG BASES: No enhancing mass. LIVER, GALLBLADDER, AND BILIARY TREE: Liver measures 16 cm.. There is slight drop-off signal from the in to the out of phase sequence. Nodular surface, subtle. There is a 3.4 cm lobulated, thin septated predominantly fluid signal characteristic lesion without restriction or overt enhancement with a focal 1.1 cm intrinsic hyperintense T1 signal likely blood products. Prominent caudate lobe. Status post cholecystectomy. No intrahepatic or extrahepatic biliary ductal dilatation. Common bile duct measures 6 mm. PANCREAS: No focal mass. No main pancreatic ductal dilatation. No peripancreatic fluid collection. SPLEEN: 12 cm. There is a focal 1 cm probably peripheral enhancing hypointense T1 hyperintense T2 lesion in the inferior aspect. ADRENAL GLANDS: No nodular lesions. KIDNEYS AND URETERS: No hydronephrosis. Normal enhancement pattern of the renal parenchyma. There is a focal 5 mm intrinsic hyperintense T1 nonenhancing or restricted diffusion signal at the corticomedullary junction of the posterior midportion left kidney. No enhancing mass. No dilatation of the ureters. GASTROINTESTINAL TRACT: No intestinal obstruction pattern. No ascites. ABDOMINAL WALL: Small fat-containing umbilical hernia. LYMPH NODES: No gross mesenteric or retroperitoneal lymphadenopathy. VASCULAR: No aneurysm or dissection, abdominal aorta. OSSEOUS STRUCTURES: Mild multilevel thoracolumbar spondylosis. Probable intraosseous hemangioma, L4 vertebra. MR/MR abdomen wo/w con IMPRESSION: Hepatosplenomegaly, mild. Concerning cirrhosis/hepatocellular disease. 3.4 cm lobulated thin septated, nonenhancing hemorrhagic cystic lesion, right hepatic lobe. Underlying malignancy cannot be excluded. 0.5 cm hemorrhagic cyst, left kidney. No ascites. No gross lymphadenopathy. Electronically signed by: Levi Estrella MD 05/25/2025 02:22 PM EDT RP Dictated By: Levi Ballesteros MD Signed By: <Electronically signed by Levi Garcia MDin OV> 05/25/25 1422 DD/ 1324 TD/TT: 05/25/25 1347 Political Aide: [facility] External Provider IMG MRI PROCEDURES Final Result documented in this encounter Visit Diagnoses Not on filedocumented in this encounter Additional Health Concerns Assessment Noted Time PHQ-9 Depression Total Score: 0 02/17/20 24 11:11 AM EDT documented as of this encounter Care Teams Applications Processor Relationship Specialty Start Date End Date Name, MD Parag [address] [place] [id number] PCP - General Family Medicine 12/24/15 documented as of this encounter
--- OUTSIDE RECORDS SUMMARY | 2025-05-25 15:13 | XMS_ITS | Clinical Summary ---
Author Organization [employer] Address [address] [place] [address] 7[address] [place] [address] Care Team Providers Care Operational Trainer Name Role Phone Name, Parag SHAH Primary Care Provider [phone] Allergies No known active allergies Medications cyclobenzaprine [...] Nonalcoholic fatty liver 04/24/2025 Primary thyroid cancer (CMS/HCC) 04/24/2025 Strain of lumbar region 04/24/2025 Acute [...] Encounters Date Type Department Care Team Description 05/25/2025 Orders Only [facility] External Provider, [facility] 04/24/2025 1:00 PM EDT Office Visit [facility] [address] [place] [address] Parag Maria MD Metabolic dysfunction-associated steatohepatitis (MASH) (Primary Dx) 04/24/[address] [facility] [address] [place] [address] Parag Maria MD 04/24/2025 Travel 04/23/[address] [address] Laxmi Cadet [place] chart prep 04/20/2025 Orders Only GENERIC EXTERNAL DATA DEPARTMENT Provider, Generic External Data 03/20/2025 Refill [facility] [address] [place] [address] Parag Maria MD 03/19/2025 Refill [facility] [address] [place], [place] [phone] Parag Maria MD 03/16/2025 Orders Only GENERIC EXTERNAL DATA DEPARTMENT Provider, Generic External Data 03/14/2025 Refill [facility] [address] [place] [address] Parag Maria MD 03/08/2025 Refill [facility] [address] [place] [address] Parag Maria MD 03/08/2025 Refill [facility] [address] [place] [address] Parag Maria MD Acute right-sided low back [...] t he electric, gas, oil or water mon.ki threatened to shut off services in your [...] Description 07/03/2025 1:30 PM EST Office Visit [facility] [address] [place] [address] Jen Callahan, OD [address] [place] [address] Health Maintenance Due Date Last Done Comments [...] WO CONTRAST Routine 05/25/2025 1:24 PM EDT VITAMIN D,25-OH,TOTAL,IA Routine 04/24/2025 1:17 PM EDT Metabolic dysfunction-associated steatohepatitis (MASH) HEMATOXYLIN AND EOSIN STAIN Routine 04/20/2025 2:47 [...] PROTHROMBIN TIME-INR Routine 03/16/2025 9:03 AM EDT BI MAMMOGRAM SCREENING TOMOSYNTHESIS BILATERAL Routine [...] Recently Relevant to Health Maintenance Results * MR Abdomen w/ and w/o Contrast (05/25/2025 1:24 PM EDT) Anatomical Region Laterality Modality Abdomen Magnetic Resonan ce 05/25/2025 1:24 PM EDT Narrative 05/25/2025 2:25 PM EDT [address] [address] Magnetic Resonance Report Signed Patient: Annmarie Holloway MR#: [id number] 57 : 1970 Acct:[id number] Age/Sex: 54 / F ADM Date: 05/25/25 Loc: HO.MRI Attending Dr: Isabella Newby MD Ordering Physician: Isabella Newby MD Date of Service: 05/25/25 Procedure(s): MR abdomen wo/w con Accession Number(s): [id number] cc: Name,Parag SHAH; Isabella Newby MD Reason for Exam: [...] 05/25/25 1422 DD/ 1324 TD/TT: 05/25/25 1347 Tool Maintenance Technician: Procedure Note Donotuseinterpreter, Image - 05/25/2025 [place] [address] Magnetic Resonance Report Signed Patient: Josué Holloway#: [id number] 56 : 1970Acct:[id number] Age/Sex: 54 / FADM Date: 05/25/25 Loc: HO.MRI Attending Dr: Isabella Newby MD Ordering Physician: Isabella Newby MD Date of Service: 05/25/25 Procedure(s): MR abdomen wo/w con Accession Number(s): [id number] cc: Parag Maria MD; Isabella Newby MD [...] 05/25/25 1422 DD/ 1324 TD/TT: 05/25/25 1347 Tool Maintenance Technician: [facility] External Provider IMG MRI PROCEDURES Final Result * Vitamin D, 25-Hydroxy, Total, Immunoassay (04/24/2025 1:17 PM EDT) Vitamin D 25-OH Total 43.1 >30 ng/mL [facility] Comment: Health Based Reference Values*< 20 ng/mL Spbrikzxe61-28 ng/mL Insufficient> 30 ng/mL Sufficient*Augustina STOKES. N Engl J Med. 2007;357:266-280There is no well-established upper level of normal vitamin Dlevels. Some laboratories use 50 ng/mL as an upper limit ofnormal. However, toxicity is patient-dependent and may occurat any level. Careful correlation with the patient'spresentation is necessary and, if there is concern forvitamin D toxicity, treatment should be consideredirrespective of the serum level.Care must be taken in interpreting Vitamin D results fromdifferent laboratories and methodologies. Published datademonstrated that results from patients undergoinghemodialysis may show a negative bias when tested withvarious automated 25-OH vitamin D assays when compared toLC-MS/MS.When testing samples from patients whose predominant form ofVitamin D is Vitamin D2, such as patients receiving VitaminD2 supplementation, results that are subtherapeutic shouldbe confirmed with another method such as LC-MS/MS. Blood Venous blood specimen / Unknown 04/24/2025 1:17 PM EDT 04/24/2025 4:09 PM EDT us Parag Maria MD LAB BLOOD ORDERABLES Final Resul t [facility] [address] [place] [phone] * Hematoxylin and Eosin Stain (04/20/2025 2:47 PM EDT) 04/20/2025 2:47 PM EDT 04/23/2025 7:12 AM EDT Narrative [facility] - 04/24/2025 12:29 PM EDT ----- ------- Name: Annmarie Holloway Age/Sex: 54/F : 1970 Unit#: [id number] Attend Dr: Isabella Newby MD Re04/20/25 Status: [facility] Location: [facility] Disch: ----- ------- SPEC : [id number] RECD: 04/23/25 STATUS: CRYSTAL KIRK NUM: [id number] PERNELL: 04/20/25-1447 [facility] DR: Isabella Newby MD ENTERED: 04/23/25 [...] microscopic examination, multiple pieces in cassette A. ([facility]) IHC S/NG Disclaimer NOTE: Unless otherwise stated, all tissue is formalin-fixed and paraffin-embedded. Some or all of the immunohistochemical tests reported herein may have been developed and their performance characteristics determined by [facility]. They have not been cleared or approved by the U.S. Food and Drug Administration (FDA). However, the FDA has determined that such clearance or approval is not necessary. This laboratory is certified under the Clinical Laboratory Improvement Amendments of 1988 (CLIA) as qualified to perform high complexity clinical laboratory testing. Copies To: Parag Maria MD [address] [address] CONTINUED ON NEXT PAGE ----- ------- Name: Annmarie Holloway Age/Sex: 54/F : 1970 Unit#: [id number] Attend Dr: Isabella Newby MD Re04/20/25 Status: [facility] Location: [facility] Disch: ----- ------- SPEC : [id number] RECD: 04/23/25 STATUS: CRYSTAL KIRK NUM: [id number] PERNELL: 04/20/25-1447 [facility] DR: Isabella Newby MD ENTERED: 04/23/25 SP TYPE: Surgical OTHR DR: Parag Maria MD ORDERED: ALLIE Cartwright/3, Gross Micro L4 Copies To: (Continued) Isabella Newby MD [facility] [address] [place] [phone] [email or web address] ----- ------- Signed (signature on file) Regan Parra MD 04/24/25 1229 ----- ------- END OF REPORT Generic External Data Provider LAB BLOOD ORDERAB LES Final Result Performing Organization Address City/[facility]/ZIP Co de Phone Number [facility] [address] [place] [address] [phone] * Hm Colonoscopy (04/20/2025) Pathologist [facility] Colonoscopy Normal Normal 04/20/2025 Parag Maria MD HEALTH MAINTENANCE Final Result * TSH with Reflex to Free T4 (03/16/2025 9:03 AM EDT) Pathologist [facility] TSH reflex Free T4 3.87 0.32 - 4.0 uIU/mL [facility] 03/16/2025 9:03 AM EDT 03/16/2025 9:03 AM EDT Generic External Data Provider LAB BLOOD ORDERAB LES Final Result Performing Organization Address [facility]/ZIP Co de Phone Number [facility] [address] [place] [address] [phone] * (ABNORMAL) Liver Fibrosis (HCV), FibroTest-ActiTest Panel (03/16/2025 9:03 AM EDT) Pathologist [facility] Liver Fibrosis Score 0.56 [facility] Liver Fibrosis Stage F2 [facility] Liver Fibrosis Interpretation SEE NOTE [facility] Comment:moderate fibrosisFib ro Test Score (f) Metavir Score f>=0 and f<=0.21 : F0 (no fibrosis)f>0.21 and f<=0.27 : F0-F1 (no fibrosis)f>0.27 and f<=0.31 : F1 (minimal fibrosis)f>0.31 and f<=0.48 : F1-F2 (minimal fibrosis)f>0.48 and f<=0.58 : F2 (moderate fibrosis)f>0.58 and f<=0.72 : F3 (advanced fibrosis)f>0.72 and f<=0.74 : F3-F4 (advanced fibrosis)f>0.74 and f<=1.00 : F4 (severe fibrosis) Nec Inflam Act Score 0.36 [facility] Nec Inflam Act Grade A1-A2 [facility] Nec Inflam Act Interpretation SEE NOTE [facility] Comment:minimal activityActi Test Score (a) Metavir Score a>=0 and a<=0.17 : A0 (no activity)a>0.17 and a<=0.29 : A0-A1 (no activity)a>0.29 and a<=0.36 : A1 (minimal activity)a>0.36 and a<=0.52 : A1-A2 (minimal activity)a>0.52 and a<=0.60 : A2 (significant activity)a>0.60 and a<=0.62 : A2-A3 (significant activity)a>0.62 and a<=1.00 : A3 (severe activity) XQM-Ftqrh-5-Macroglo bulin 318(A) 106 - 279 mg/dL [facility] FIB-Haptoglobin 71 43 - 212 mg/dL [facility] FIB-Apolipoprotein A1 173 101 - 198 mg/dL [facility] FIB-Total Bilirubin 0.5 0.2 - 1.2 mg/dL [facility] FIB-GGT 149(A) 3 - 70 U/L [facility] FIB-ALT 48(A) 6 - 29 U/L [facility] Reference ID [id number] [facility] Footnote SEE NOTE [facility] Comment: The reliability of results is [...] and C.The performance characteristics have been determined byProsonixLos [facility]. Ithas not been cleared or approved by the U.S. Food and DrugAdministration. Performance characteristics refer to theanalytical performance of the test.[employer], [employer], the associated logo, [employer] and all associated [employer] morillo are theregistered trademarks of [employer]. All third partymarks - (R) and (TM) - are the property of their respectiveowners. (C) [id number] [employer]. Allrights reserved.THIS TEST WAS PERFORMED AT:[employer] [id number] [place] [address]UKAETGOPI STEWART MD,PHD,CARMELITA 03/16/2025 9:03 AM EDT 03/16/2025 9:03 AM EDT us Generic External Data Provider LAB BLOOD ORDERAB LES Final Result [facility] [address] [place] [phone] * (ABNORMAL) Actin (Smooth Muscle) Antibody (IgG) (03/16/2025 9:03 AM EDT) Smooth Muscle Antibody 20(A) <20 U [facility] Comment:Reference Range: <20 U: Negative>or=20 U: [...] with AIH type 1.THIS TEST WAS PERFORMED AT:[employer]/[facility] [place] [address]LAIXNOERANDY DAVE MD,PHD 03/16/2025 9:03 AM EDT 03/16/2025 9:03 AM EDT Generic External Data Provider LAB BLOOD ORDERAB LES Final Result Performing Organization Address [facility] de Phone Number [facility] [address] [place] [address] [phone] * Tissue Transglutaminase Antibody, IgA (03/16/2025 9:03 AM EDT) Pathologist [facility] Transglutaminase IgA <1.0 U/mL [facility] Comment:Value Interpretation ----- <15.0 Antibody not detected> or = 15.0 Antibody detectedTHIS TEST WAS PERFORMED AT:[employer] [address] [address]VXRVNMICHAELA FERRIS MD 03/16/2025 9:03 AM EDT 03/16/2025 9:03 AM EDT us Generic External Data Provider LAB BLOOD ORDERAB LES Final Result Performing Organization Address [facility] Co de Phone Number [facility] [address] [place] [address] [phone] * Ceruloplasmin (03/16/2025 9:03 AM EDT) Ceruloplasmin 22 14 - 48 mg/dL [facility] Comment:THIS TEST WAS PERFOR MED AT:[employer] [place] [address]USSMJMICHAELA FERRIS MD 03/16/2025 9:03 AM EDT 03/16/2025 9:03 AM EDT Generic External Data Provider LAB BLOOD ORDERAB LES Final Result Performing Organization Address [facility] Co de Phone Number [facility] [address] [place] [phone] * (ABNORMAL) Alpha-Fetoprotein, Tumor Marker (03/16/2025 9:03 AM EDT) Pathologist [facility] Alpha Fetoprotein 10.3(A) ng/mL [facility] Comment:Reference Range: <6. 1The use of AFP as a tumor marker in females is not recommended.This test was performed using the Sha Coulterchemiluminescent method. Values obtained fromdifferent assay methods cannot be usedinterchangeably. AFP levels, regardless ofvalue, should not be interpreted as absoluteevidence of the presence or absence of disease.THIS TEST WAS PERFORMED AT:[employer] [address] [address]VKAAPMICHAELA FERRIS MD 03/16/2025 9:0 3 AM EDT 03/16/2025 9:03 AM EDT Generic External Data Provider LAB BLOOD ORDERAB LES Final Result Performing Organization Address [facility] Co de Phone Number [facility] [address] [place] [address] [phone] * Mitochondrial Antibody with Reflex to Titer (03/16/2025 9:03 AM EDT) Pathologist [facility] Mitochondrial Antibodies NEGATIVE NEGATIVE [facility] Comment:The specimen was neg ative for cytoplasmic antibodies,however additional staining was observed suggesting thepresence of Antinuclear Antibodies. Consider requestingorder code 249, JC Screen, IFA with Reflex to Titer andPattern, or order code [id number], JC Screen, IFA w/reflexTiter/Pattern, and Reflex to Multiplex 11 Ab [place],if clinically indicated.THIS TEST WAS PERFORMED AT:[employer] [place] [address]DRDMPMICHAELA FERRIS MD Mitochondrial Ab Titer TNP [facility] 03/16/2025 9:03 AM EDT 03/16/2025 9:03 AM EDT Generic External Data Provider LAB BLOOD ORDERAB LES Final Result Performing Organization Address [facility] Co de Phone Number [facility] [address] [place] [phone] * (ABNORMAL) Prothrombin Time-INR (03/16/2025 9:03 AM EDT) Prothrombin Time 13.2(H) 10.9 - 12.4 SEC [facility] INTERNATIONAL NORM RATIO 1.2(H) 0.9 - 1.1 [facility] Comment:INTERNATIONAL NORMAL IZED RATIO (INR) REFERENCE [...] 9:03 AM EDT 03/16/2025 9:03 AM EDT [employer] External Data Provider LAB BLOOD ORDERAB LES Final Result Performing Organization Address [facility] Co de Phone Number [facility] [address] [place] [phone] * (ABNORMAL) Ferritin (03/16/2025 9:03 AM EDT) Ferritin 374(H) 10 - 250 ng/mL [facility] 03/16/2025 9:03 AM EDT 03/16/2025 9:03 AM EDT us Generic External Data Provider LAB BLOOD ORDERAB LES Final Result Performing Organization Address City/State/[facility] Co de Phone Number [facility] [address] [place] [address] [phone] * BI Mammogram Screening Tomosynthesis Bilateral (02/24/2024 2:00 PM EDT) Anatomical Region Laterality Modality Breast Bilateral Mammography 02/24/2024 2:00 PM EDT Narrative 03/15/2024 8:24 PM EDT [address] [place] [address] Mammography Report Signed with Addenda Patient: Annmarie Holloway MR#: [id number] 56 : 1970 Acct:[id number] Age/Sex: 53 / F ADM Date: 02/24/24 Loc: HO.MAMMO Attending Dr: Parag Maria MD Ordering Physician: Parag Maria MD Results: 2Benign Fi ndings Date of Service: 02/24/24 Follow Up: 1 Year From Orig inal Mammogram Procedure(s): MM tomosynthesis screening BI Accession Number(s): [id number] cc: Parag Maria MD ADDENDUM ADDENDUM #1 [...] by: Alex Brush MD 06/27/2024 02:44 PM [facility] Addendum Dictated By: Alex Brush MD Addendum [...] MD in OV> 03/15/242019 DD/ 99 TD/TT: Tool Maintenance Technician: Procedure Note Donotuseinterpreter, Image - 06/27/2024 [facility] [address] [place] [address] Mammography Report Signed with Addenda Patient: Josué Holloway#: [id number] 56 : 1970Acct:[id number] Age/Sex: 53 / FADM Date: 02/24/24 Loc: AMADA Attending Dr: Parag Maria MD Ordering Physician: Name,Parag MDResults: 2Benign Fi ndings Date of Service: 02/24/24Follow Up: 1 Year From Orig inal Mammogram Procedure(s): MM tomosynthesis screening BI Accession Number(s): [id number] cc: Name,Parag SHAH ADDENDUM ADDENDUM #1 ADDENDUM: [...] by: Alex Brush MD 06/27/2024 02:44 PM [facility] Workstation: [employer] Addendum Dictated By: Alex Brush MD Addendum [...] MD in OV> 03/15/242019 DD/ 99 TD/TT: Tool Maintenance Technician: us Parag Maria MD IMG BI PROCEDURES Edited Result - Final * Hepatitis C Antibody with Reflex to HCV, RNA, Quantitative, Real-Time PCR (02/18/2024 9:02 AM EDT) Hepatitis C Antibody Nonreactive Nonreactive [facility] Comment:Antibodies to HCV no t detected; does not exclude early acuteHCV infection. Blood Venous blood specimen / Unknown 02/18/2024 9:02 AM EDT 02/18/2024 10:40 AM EDT us Parag Maria MD LAB BLOOD ORDERABLES Final Resul t [facility] [address] [place] [phone] * HIV-1/2 Antigen and Antibodies, Fourth Generation, with Reflexes (02/18/2024 9:02 AM EDT) HIV AB/AG Nonreactive Nonreactive [facility] Comment:HIV-1 p24 Ag and/or HIV-1/HIV-2 Ab not detected.A test result that is nonreactive does not exclude thepossibility of exposure to or infection with HIV-1 and/orHIV-2. Nonreactive results in this assay for individualswith prior exposure to HIV-1 and/or HIV-2 may be due toantigen and antibody levels that are below the limit ofdetection of this assay.[employer] HIV Ag/Ab Combo assay result andsupplemental assay results should be interpreted inconjunction with the patient's clinical presentation,history and other laboratory results. If the results areinconsistent with clinical evidence, additional testing issuggested to confirm the result. Blood Venous blood specimen / Unknown 02/18/2024 9:02 AM EDT 02/18/2024 10:40 AM EDT us Parag Maria MD LAB BLOOD ORDERABLES Final Resul t Performing Organization Address [facility] Co de Phone Number [facility] [address] [place] [phone] * Lipid Panel, Standard (02/11/2024 8:27 AM EDT) Triglycerides 93 <150 mg/dL [facility] Comment:Desirable Triglyceri de: less than 150 mg/dLBorderline High Triglyceride 150-199 mg/dLHigh Triglyceride: 200-499 mg/dLVery High Triglyceride: greater than or equal to 5OO mg/dL Cholesterol 168 <200 mg/dL [facility] Comment:Desirable Cholestero l: less than 200 mg/dLBorderline High Cholesterol: 200-239 mg/dLHigh Cholesterol: greater than 239 mg/dL LDL Cholesterol Calculated 95 <100 mg/dL [facility] Comment:Desirable LDL: less than 100 mg/dLNear Optimal/Above Optimal LDL: 110- 129 mg/dLBorderline High LDL: 130-159 mg/dLHigh LDL: 160-189 mg/dLVery High LDL: greater than or equal to 190 mg/dL HDL Cholesterol 55 >40 mg/dL [facility] Comment:Desirable HDL: great er than 40 mg/dL Note: This HDL assay may give artificially low results in patients with liver disease. Blood Venous blood specimen / Unknown 02/11/2024 8:27 AM EDT 02/11/2024 11:06 AM EDT us Parag Maria MD LAB BLOOD ORDERABLES Final Resul t Performing Organization Address [facility]/ZIP Co de Phone Number [facility] [address] [place] [phone] from Last 3 Months or Most Recently Relevant to Health Maintenance Insurance [facility] C3 Care Teams Operational Trainer Relationship Specialty Start Date End Date Name, MD Parag [address] [facility] [place] [address] PCP - General Family Medicine 12/24/15
--- OUTSIDE RECORDS SUMMARY | 2025-05-25 15:13 | XMS_ITS | Encounter Summary ---
Author Organization [employer] Address [address] [place] [address] Care Team Providers Care Casino Porter Name Role Phone Name, Parag SHAH Primary Care Provider [phone] Reason for Visit * Reason Comments Med Change Request Encounter Details Date Type Department Care Team ([facility] st Contact Info) Description 03/01/2024 Refill [facility] [address] [place], [place] [phone] Name, MD Parag [address] [place] [address] Social History Tobacco Use Types Packs/Day Years [...] is your housing situation today? I have eirn kumari 02/17/[address] you [...] Description 07/03/2025 1:30 PM EST Office Visit [facility] [address] [place] [address] [place], Jen, OD [address] [place] [address] documented as of this encounter Visit Diagnoses Not on filedocumented in this encounter Additional Health Concerns Assessment Noted Time PHQ-9 Depression Total Score: 0 02/17/20 24 11:11 AM EDT documented as of this encounter Care Teams Casino Porter Relationship Specialty Start Date End Date Name, MD Parag [address] [place] [address] PCP - General Family Medicine 12/24/15 documented as of this encounter
--- OUTSIDE RECORDS SUMMARY | 2025-05-25 15:13 | XMS_ITS | Encounter Summary ---
Author Organization [employer] Address [address] [place] [address] Care Team Providers Care Boat Finisher Name Role Phone Name, Parag SHAH Primary Care Provider [phone] Reason for Visit * Reason Onset Date [...] (Late st Contact Info) Description 02/28/2024 Refill [facility] [address] [place], [place] [phone] Name, MD Parag [address] [place], [place] [phone] Social History Tobacco Use Types Packs/Day Years [...] Description 07/03/2025 1:30 PM EST Office Visit [facility] [address] [place] [address] Jen Callahan, OD [address] [place] [address] documented as of this encounter Visit Diagnoses Not on filedocumented in this encounter Additional Health Concerns Assessment Noted Time PHQ-9 Depression Total Score: 0 02/17/20 24 11:11 AM EDT documented as of this encounter Care Teams Boat Finisher Relationship Specialty Start Date End Date Name, MD Parag [address] [place] [address] PCP - General Family Medicine 12/24/15 documented as of this encounter
== END 2025-05-25 13:11 | disposition home or self-care (01) ==
LOC: HO.MRI 13:10
PROVIDERS: PCP Internal Medicine Geriatric Medicine; Visit Provider Internal Medicine
DX: R77.2 Abnormality of alphafetoprotein (principal); K76.89 Other specified diseases of liver
CPT/HCPCS: 74183; A9585